=== PATIENT | male | born 1995 | race Caucasian/White ===

== ENCOUNTER 2023-04-14 19:00 | Emergency (ER) | payer MEDICAID, SELFPAY ==
[2023-04-14 19:27] VITALS: BP 138/97; PULSE 74; RESP 16; TEMP 36.6; O2SAT 98; BMI 23.0
--- NOTE | 2023-04-14 19:41 | CRLHL7_ITS ---
For Patients: As a result of the Cures Act, medical imaging exams and procedure reports are released immediately into your electronic medical record. You may view this report before your referring provider. If you have questions, please contact your health care provider. HISTORY: Fall. TECHNIQUE: Three views of the right hand. COMPARISON: No prior. FINDINGS: No acute fracture or dislocation. There may be a remote healed fracture of the proximal shaft of the 5th metacarpal bone as seen on the oblique film. Ulnar minus variance. Alignment otherwise maintained. Vascular calcifications. No radiodense foreign body. Irregularity of the soft tissues of the 4th and 5th fingers likely reflecting soft tissue injury. IMPRESSION: No acute fracture or dislocation. Dictated by Gorge Kumar MD @ 04/14/2023 8:19:26 PM Dictated by: Gorge Kumar MD @ 04/14/2023 20:19:31 (Electronically Signed)
--- NOTE | 2023-04-14 19:41 | CRLHL7_ITS ---
For Patients: As a result of the Cures Act, medical imaging exams and procedure reports are released immediately into your electronic medical record. You may view this report before your referring provider. If you have questions, please contact your health care provider. INDICATION: Fall. Right rib pain. TECHNIQUE: Chest 2 view(s) COMPARISON: Chest radiograph dated 08/28/2020. FINDINGS: Cardiomediastinal silhouette and pulmonary vasculature are normal. No focal consolidation. No pleural effusion, no pneumothorax. Mild multilevel degenerative changes of the visualized spine. Mildly displaced right lateral 6th, 7th, and 8th rib fractures. IMPRESSION: Mildly displaced right lateral 6th, 7th, and 8th rib fractures. Dictated by Anuel Fay MD @ 04/14/2023 8:23:15 PM (Electronically Signed)
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
[2023-04-14] MEDS: OXYCODONE 5 MG TABLET PO (20:37)
[2023-04-14 20:38] VITALS: BP 158/102; PULSE 68; RESP 16; TEMP 36.8; O2SAT 97
[2023-04-14 21:06] VITALS: O2SAT 97
== END 2023-04-14 21:07 | disposition home or self-care (01) ==
PROVIDERS: Emergency Provider Emergency Medicine
DX: S22.41XA Multiple fractures of ribs, right side, initial encounter for closed fracture (principal); V19.9XXA Pedal cyclist (driver) (passenger) injured in unspecified traffic accident, initial encounter; S00.81XA Abrasion of other part of head, initial encounter
CPT/HCPCS: 71046; 73130; 94761; 99284; A9270

== ENCOUNTER 2023-04-18 18:05 | Emergency (ER) | payer MEDICAID, SELFPAY ==
[2023-04-18 18:14] VITALS: BP 220/110; PULSE 83; RESP 20; TEMP 36.7; O2SAT 97; BMI 21.9
[2023-04-18] MEDS: KETOROLAC 30 MG/ML inj IM (18:44)
[2023-04-18] MEDS: ACETAMINOPHEN 500 MG TABLET 1000 MG PO (18:44)
[2023-04-18] MEDS: OXYCODONE 5 MG TABLET 10 MG PO (18:45)
[2023-04-18 18:47] VITALS: BP 176/114
--- NOTE | 2023-04-18 19:01 | ED.GENADULT ---
HPI - General Adult General Chief complaint: Rib Pain Stated complaint: broken ribs Time Seen by Provider: 04/18/23 18:06 Source: patient Mode of arrival: ambulatory Limitations: no limitations History of Present Illness HPI narrative: 28-year-old male with a notable history of diabetes and hypertension presents to the emergency department for right rib pain. He was evaluated in the emergency department 2 days ago, was diagnosed with rib fractures. Appropriate workup performed, notes reviewed. He was instructed on use of [id number] Tylenol, ibuprofen and given a supply of 20 oxycodone. He has an incentive spirometer which he admits that he is not using very often as taking a deep breath worsens his pain. He ran out of oxycodone last night. He is not using ibuprofen at all and he only took 1 Tylenol tablet earlier this morning, over 10 hours ago. He clearly is not using the recommended stepwise pain control that was discussed in his previous visit. He starting to have pain not just in the outer chest wall but also a little deeper in the right far lateral chest. He is not having any fever, there is no hemoptysis. There is no productive sputum. He has not dyspnea on exertion. He had called earlier today requesting a refill of these oxycodone, when he was reminded that this would not be done without a visit, he requested a virtual visit. We let him know that this is not an option for him either. He has not made a follow-up appointment with a primary care provider. He also does not regularly take his antihypertensives. He denies any new trauma or injury. Past medical history notable for diabetes and hypertension. Medications are accurate as listed but he is not regularly using all of these. ROS is notable for the generalized and musculoskeletal symptoms as above. Also notable for the chest and respiratory symptoms no other cardiovascular, skin or other musculoskeletal concerns Related Data Home Medications Medication Instructions Recorded Confirmed insulin aspart U-100 100 unit/mL subcut 04/14/23 (3 mL) subcutaneous pen insulin glargine 100 unit/mL (3 26 - 27 unit subcut DAILY 04/14/23 04/14/23 mL) subcutaneous pen (Lantus Solostar U-100 Insulin) lisinopril 20 mg tablet 20 mg PO DAILY 04/14/23 04/18/23 metoprolol succinate 25 mg 100 mg PO DAILY 04/14/23 04/18/23 tablet,extended release 24 hr Previous Rx's Medication Instructions Recorded albuterol sulfate 90 mcg/actuation 2 puff inhalation 6XD PRN 04/14/23 aerosol inhaler shortness of breath or wheezing #6.7 grams fluticasone 250 mcg-salmeterol 50 1 inh inhalation BID #60 ea 04/14/23 mcg/dose blistr powdr for inhalation (Advair Diskus) Allergies Allergy/AdvReac Type Severity Reaction Status Date / Time bee venom protein (honey bee) Allergy Verified 04/14/23 19:31 shellfish derived Allergy Verified 04/14/23 19:31 Penicillins AdvReac Verified 04/14/23 19:31 [facility] History Hypertension ?I10 - Essential (primary) hypertension (ICD-10) Type 1 diabetes ?E10.9 - Type 1 diabetes mellitus without complications (ICD-10) Social History Smoking Status: Former smoker Do you use any of these nicotine containing products: None How often do you have a drink containing alcohol: 4 or more times a week How many standard drinks containing alcohol do you have on a typical day: 3 or 4 How often do you have six or more drinks on one occasion: Weekly AUDIT-C Alcohol total score: 8 Non-prescribed substance use: denies use Exam Const: Vital Signs, click to edit/add: Vital Signs - 24 hr 04/18/23 18:14 04/18/23 18:47 Temperature 98.1 F Pulse Rate [Pulse Oximeter] 83 Respiratory Rate 20 Blood Pressure [Ri ght Upper Arm] 220/110 H 176/114 H Pulse Oximetry 97 Oxygen Delivery Me thod Room Air Other: Fair insight at best. Does not seem to be enjoying my discussion for stepwise pain control and how it was clearly outlined in his discharge paperwork that he should be using ibuprofen and Tylenol as first-line agents which he is not appropriately doing. HENMT: Common normals: normocephalic and head/scalp atraumatic Head and scalp: normocephalic and atraumatic Mouth: oral and palatal mucosa normal Eye: Common normals: conjunctivae normal General eye: normal appearance of both eyes Conjunctiva: conjunctiva(e) normal Chest: Common normals: inspection of chest normal Resp: Common normals: normal respiratory effort, no retractions and clear to auscultation bilaterally Effort & inspection: able to speak in complete sentences Auscultation: clear to auscultation bilaterally Cardio: Common normals: regular rate, regular rhythm and no murmurs Rate: regular rate Rhythm: regular rhythm Psych: Common normals: thought process normal Appearance: grossly normal Thought process: normal thought process Insight: fair Judgement: fair Skin: Common normals: no rashes or lesions noted General skin exam: no rashes or lesions noted Course Course Hospital Course: Counseled patient on stepwise pain control. No evidence of hypoxia, fever, tachypnea or other complication. Counseled that he will not continue receiving narcotics through the emergency department and that he has been overusing the oxycodone. I do respect that he is in true pain. He is given 1000 mg of Tylenol, 30 mg of IM Toradol and will be given 10 mg of p.o. oxycodone 1 time. He is given a supply of 10 oxycodone tablets from [employer] and instructed to use these at bedtime only. I clearly wrote down appropriate stepwise pain control with Tylenol and ibuprofen, need to use the incentive spirometry. He should make a follow-up appointment with primary care provider to further discuss pain control options but that he will not be given further oxycodone through our emergency department. Alarm symptoms were reviewed with him. Blood pressure did improve somewhat on repeat values. He is not exhibiting neurological changes. Differential diagnosis considered include pneumothorax, pneumonia, repeat rib fractures, shingles, pulmonary contusion. Vital Signs Vital signs: Initial Vital Signs Temperature 98.1 F 04/18/23 18:14 Temperature Source Temporal Artery Scan 04/18/23 18:14 Pulse Rate 83 04/18/23 18:14 Respiratory Rate 20 04/18/23 18:14 Blood Pressure 220/110 H 04/18/23 18:14 Blood Pressure Mean 146 H 04/18/23 18:14 Blood Pressure Position Sitting 04/18/23 18:14 Pulse Oximetry 97 04/18/23 18:14 Oxygen Delivery Method Room Air 04/18/23 18:14 Vital Signs Temperature 98.1 F 04/18/23 18:14 Pulse Rate 83 04/18/23 18:14 Respiratory Rate 20 04/18/23 18:14 Blood Pressure 220/110 H 04/18/23 18:14 Pulse Oximetry 97 04/18/23 18:14 Oxygen Delivery Method Room Air 04/18/23 18:14 Temperature 98.1 F 04/18/23 18:14 Pulse Rate 83 04/18/23 18:14 Respiratory Rate 20 04/18/23 18:14 Blood Pressure 176/114 H 04/18/23 18:47 Pulse Oximetry 97 04/18/23 18:14 Oxygen Delivery Method Room Air 04/18/23 18:14 Discharge Plan Discharge Clinical Impression: Multiple rib fractures Patient Disposition: Home w/ Parent or Adult Instructions: Rib Fracture (ED) Additional Instructions: There are no signs of complications from the rib fractures. You are moving air beautifully with no signs of a collapsed lung, low oxygen saturations or infection. I am not surprised that there is pain deeper in the lungs because any injury enough to fracture your ribs with certainly cause a contusion, a bruise of the lung as well. You are going through the oxycodone too fast. You are not taking appropriate advantage of other means of pain control. It is important that you are using the medications in a stepwise fashion to treat your pain. First, you need to be maxing out on Tylenol. As we discussed, this is not dangerous to your kidneys. You will take 1000 mg 4 times daily, every 6 hours. If this is not adequately taking care of your pain, you will add in Toradol, 1 tablet up to every 8 hours. You will be provided with a prescription for this today. I will also give you a small supply of oxycodone to use at bedtime only. You will not be given additional oxycodone if you come back to the emergency department. Again, it is critically important that you make sure you are using the 1st 2 pain control steps before moving to the 3rd. These medications do wear off and they will need to be re-dosed throughout the day. Rib fractures can be very painful. Thankfully, things should start to improve in about a week. After the Toradol is gone, you may use 600 mg of ibuprofen every 6 hours for pain control. Activity Level: Activity as Tolerated Discharge Diet: Diabetic Prescriptions: No Action lisinopril 20 mg tablet 20 mg PO DAILY Hold Instructions: Doctor's Order metoprolol succinate 25 mg tablet extended release 24 hr 100 mg PO DAILY insulin aspart U-100 100 unit/mL (3 mL) insulin pen subcut insulin glargine [Lantus Solostar U-100 Insulin] 100 unit/mL (3 mL) insulin pen 26 - 27 unit subcut DAILY albuterol sulfate 90 mcg/actuation HFA aerosol inhaler 2 puff inhalation 6XD PRN (Reason: shortness of breath or wheezing) Qty: 6.7 0RF fluticasone propion-salmeterol [Advair Diskus] 250-50 mcg/dose blister with device 1 inh inhalation BID Qty: 60 2RF Follow Up/Referrals: Provider,Not a Local [Primary Care Provider] - Stand Alone Forms: [employer] Info Instructions
[2023-04-18 19:15] VITALS: PULSE 77; O2SAT 95
== END 2023-04-18 19:16 | disposition home or self-care (01) ==
LOC: ED 19:16
PROVIDERS: Emergency Provider Family Medicine
DX: S22.41XG Multiple fractures of ribs, right side, subsequent encounter for fracture with delayed healing (principal); Z76.0 Encounter for issue of repeat prescription
CPT/HCPCS: 96372; 99283; A9270; J1885

== ENCOUNTER 2023-10-26 21:11 | Outpatient (CLI) | payer MEDICAID, SELFPAY ==
--- OUTSIDE RECORDS SUMMARY | 2023-11-03 13:34 | XMS_ITS | Clinical Summary ---
Author Name Unknown [facility] Address [address] [address] Care Team Providers Care Client Care Consultant Name Role Phone Joao Mary PA-C Primary Care Provider [phone] Source Comments You are receiving this document as you are listed as the primary care provider,follow-up provider, or the patient has been referred to you for consultation.This is in compliance with the Medicare and[facility] EHR Incentive Program,which states Providers who transition their patient to another setting of careor provider of care or refers their patient to another provider of care shouldprovide summary care record for each transition of care or referral. [facility] Allergies Active Allergy Reactions Criticality Noted Date Comments Bee Venom Itching Medium 06/23/2013 Copper 11/25/2011 PN: had a copper ear stud that got infected. Possible skin reaction to copper in the metal format. Naltrexone Other, see comments,Anxiety 06/04/2021 Med reaction vs alcohol withdrawal? Med reaction vs alcohol withdrawal? Penicillins Hives 05/25/2012 Seafood Anaphylaxis High 11/03/2020 Coconut shrimp - anaphylaxis Shellfish Allergy Anaphylaxis High 11/03/2020 Coconut shrimp - anaphylaxis Coconut shrimp - anaphylaxis Zinc Rash 05/12/2018 Medications Medication Sig Dispensed Refills Start Date End Date Status Lithonia-3 (AKA FISH OIL) 1000 MG capsule Take by mouth. 0 11/08/2018 Active Vitamin D, Ergocalciferol, 31077 units CAPS Take 1 Capsule (50,000 Units) by mouth. 0 03/12/2010 Active Continuous Blood Gluc Transmit (DEXCOM G6 TRANSMITTER) MISCIndications:U ncontrolled type 1 diabetes mellitus with nephropathy Inject 1 Each subcutaneously [id number]. 1 Each 3 03/18/2020 Active Continuous Blood Gluc General House Worker (DEXCOM G6 UNIVERSAL GRINDER SET UP OPERATOR) DEVIIndications:T ype 1 diabetes mellitus without complication (HRC) Take 1 Each as instructed daily. 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 Use as directed. Pharmacy dispense brand based on insurance. 400 Strip 0 09/05/2021 Active UltiCare Alcohol Swabs 70 % PADS Use before testing blood sugars 200 Each 3 03/09/2022 Active cholecalciferol (VITAMIN D3) 25 MCG (1000 UT) tablet Take 1 Tablet (1,000 Units) by mouth. 0 Active furosemide (LASIX) 20 MG tablet Take 1 Tablet (20 mg) by mouth two times a day. 0 06/14/2022 Active Ketotifen Fumarate (ZADITOR) 0.025 % eye drop solution Place 1 Drop into eye(s). 0 Active Multiple Vitamin (ONE-A-DAY ESSENTIAL) Take 1 Tablet by mouth daily. 0 Active potassium chloride (KLOR-CON M) 20 MEQ ER tablet Take 1 Tablet (20 mEq) by mouth. 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 Replace sensor every 14 days. 6 Each 3 11/18/2022 Active fluticasone-salme terol (ADVAIR) 500-50 MCG/ACT diskus inhalerIndication s:Mild persistent asthma without complication (HRC) Inhale 1 Puff as needed. 1 Each 11 11/26/2022 Active lisinopril (ZESTRIL) 20 MG tabletIndications :Essential hypertension (HRC) Take 1 Tablet (20 mg) by mouth daily. 90 Tablet 3 12/03/2022 Active EPINEPHrine (EPIPEN) 0.3 MG/0.3ML injection INJECT 0.3 MILLILITERS INTRAMUSCULARLY NEEDED FOR ANAPHYLACTIC REACTION. 1 Each 02/23/2023 Active gabapentin (NEURONTIN) 300 MG capsule TAKE 3 CAPSULES BY MOUTH EVERY MORNING AND TAKE 3 CAPSULES BY MOUTH EVERY EVENING. 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 USE 3-4 UNITS PER MEAL. 30 mL 0 08/09/2023 Active LANTUS SOLOSTAR 100 UNIT/ML penIndications:Ty pe 1 diabetes mellitus with diabetic nephropathy (HRC),Diabetic hypoglycemia (HRC) Inject 26-27 Units subcutaneously daily. 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 11/10/2018 ADHD, predominantly inattentive type 12/18/2011 Bipolar II disorder, most recent episode major d epressive 07/28/2011 Alcohol dependence in remission 07/28/2011 Overview: Other and unspecified alcohol dependence, in remission (HRC) Substance dependence, in remission 07/28/2011 Resolved Problems Problem Noted Date Diagnosed Date Resolved Date Bipolar affective disorder 07/08/2011 1 Overview: Other bipolar disorders (HRC) Encounters Date Type Department Care Team Description 09/12/[address] [phone] Joao Mary PA-C Refill (BAQSIMI TWO PACK 3 MG/DOSE nasal powder [Pharmacy Med Name: Baqsimi Two Pack Nasal Powder 3 MG/DOSE]) 09/12/[address] [phone] Joao Mary PA-C Refill (LANTUS SOLOSTAR 100 UNIT/ML pen [Pharmacy Med Name: Lantus SoloStar Subcutaneous Solution Pen-injector 100 UNIT/ML]; GLUCAGON EMERGENCY 1 MG Kit [Pharmacy Med Name: Glucagon Emergency Injection Kit 1 MG]) 08/05/[address] [phone] Joao Mary PA-C Refill (Insulin Aspart FlexPen 100 UNIT/ML SOPN [Pharmacy Med Name: Insulin Aspart FlexPen Subcutaneous Solution Pen-injector 100 UNIT/ML]) from Last 3 Months Immunizations Name Administration Dates Next Due DTaP 01/15/1995, 4,1993,1992,1993 Flu Vac Preserv Free (3+yrs) 07/16/2011, 06/04/2011,06/11/2010,2008,10/17/2008,08/09/2006,07/23/2004 HepB Adult (Engerix-B, 20+ y rs, 3 dose series) 1993,1993,1993 Hib (ActHIB) 07/01/1994, 3,1993,1992 Influenza IIV4 (Quadrivalent ) 0.5mL (18019) 07/21/2020 Influenza, Unspecified Formulation 07/16,06/04/2011,06/11/2010,2008,10/17/2008,08/09/2006,07/23/2004 MMR 08/09/2001,07/01/1994 Moderna Monovalent 12+ 02/19/2021 OPV, Trivalent (Orimune or tOPV) 998,07/01/1994,1993,1992 Rabies 12/07/2017, 8,11/26/2017,2017 Rabies IG 11/23/2017 TDAP (ADACEL) 05/26/2005 Tdap 11/23/2017 Family History Medical History Relation Name Comments Alcohol Abuse Father Foster Bipolar Disorder Mother Carine Diabetes, Type II Maternal Grandfather Parkinsons Maternal Grandfather Rheumatologic Disease Maternal Grandfather ADHD Sister 1 Ambriel ADHD Sister 2 Brylea Relation Name Status Comments Father Foster Alive Mother Carine Alive Maternal Grandfather Sister 1 Ambriel Alive Sister 2 Gin Alive Social History Tobacco Use Types Packs/Day Years Used Date Smoking Tobacco: Former Cigarettes Q uit: 07/04/2021 Smokeless Tobacco: Never Tobacco Cessation:Counseling Given: Not Answered Comments:1 Cigarette per day Alcohol Use Standard Drinks/Week Comments Yes 0 (1 standard drink = 0.6 oz pur e alcohol) 2-3 beers each day PHQ-2 Answer Date Recorded PHQ-2 Score 5 11/18/2022 Sex and Gender Information Value Date Recorded Sex Assigned at Not on file Gender Identity Not on file Sexual Orientation Not on file Last Filed Vital Signs Vital Sign Reading Time Taken Comments Blood Pressure 179/113 11/18/2022 3:24 PM IT SUPPORT ENGINEER Pulse 77 11/18/2022 3:24 PM IT SUPPORT ENGINEER Temperature 37.1 ??C (98.7 ??F) 08/15/2020 1:58 PM CS T Respiratory Rate 14 11/18/2022 3:07 PM IT SUPPORT ENGINEER Oxygen Saturation 100% 08/15/2020 1:58 PM IT SUPPORT ENGINEER Inhaled Oxygen Concentration - - Weight 71.4 kg (157 lb 4.8 oz) 11/18/2022 3:07 P M IT SUPPORT ENGINEER Height 172.7 cm (5' 8) 11/18/2022 3:07 PM IT SUPPORT ENGINEER Body Mass Index 23.92 11/18/2022 3:07 PM IT SUPPORT ENGINEER Plan of Treatment Upcoming Encounters Date Type Department Care Team Description 11/08/2023 3:00 PM IT SUPPORT ENGINEER Telemedicine [place] [address] [facility] [address] [place] [address] Joao Mary, MARTIN [address] [place] [address] Health Maintenance Due Date Last Done Comments Diabetes: Eye Exam 1993 MTM Targeted 1993 Asthma ACT 1997 Pneumococcal (1 - PCV) 1999 COVID-19 Vaccine ( season) 2023 02/19/2021 Influenza (#1) 2023 07/21/2020, 07/04, 07/16/2011, Additional history exists Diabetes: Creatinine 11/18/2023 11/18/2022, 08/15/2020, 06/22/2019, Additional history exists Diabetes: Foot Exam 11/18/2023 11/18/2022 Diabetes: Urine Microalbumin 11/18/2023 11/18/2022, 09/09/2018, 08/06/2017, Additional history exists Diabetes: HGBA1C 01/25/2024 10/26/2023, , 06/23/2021, Additional history exists Adult Preventive Visit 11/18/2024 11/18/2022 Diabetes: Lipid Panel 11/18/2027 11/18/2022 , 09/09/2018, 08/06/2017, Additional history exists DTaP/Tdap/Td (7 - Tdap) 11/23/2027 11/23/19, 05/26/2005, 01/15/1995, Additional history exists Zoster/Shingles (1 of 2) 2043 HepB Completed 1993, 0704/1993, 1993 Hib Completed 07/01/1994, 0 04/1993, 1993, Additional history exists IPV (Polio) Completed 01/15/1998, 06/05, 1993, Additional history exists HIV Screening (Preventive Services) Completed 11/18/2022 Hep C Screening (Preventive Services) Completed 11/18/2022 HPV Vaccine Aged Out No longer eligi ble based on patient's age to complete this topic HepA Aged Out No longer eligi ble based on patient's age to complete this topic MCV4 Aged Out No longer eligi ble based on patient's age to complete this topic Care Teams Client Care Consultant Relationship Specialty Start Date End Date Joao Mary PA-C [address] [place] [address] PCP - General Physician Civil Structural Designer 05/29/23
--- OUTSIDE RECORDS SUMMARY | 2023-11-03 13:34 | XMS_ITS | Encounter Summary ---
Author Name Unknown Organization [facility] Address [address] [address] Care Team Providers Care Printing Grey Cloth Tender Name Role Phone Joao Mckeon PA-C Primary Care Provider [phone] Reason for Visit * Reason Comments Refill BAQSIMI TWO PACK 3 M G/DOSE nasal powder [Pharmacy Med Name: Baqsimi Two Pack Nasal Powder 3 MG/DOSE] Encounter Details Date Type Department Care Team Description 08/02/2023 Refill [place] [address] Family [facility] [id number] [place] [phone] Joao Mckeon PA-C [address] [place] [address] Refill (BAQSIMI TWO PACK 3 MG/DOSE nasal powder [Pharmacy Med Name: Baqsimi Two Pack Nasal Powder 3 MG/DOSE]) Social History Tobacco Use Types Packs/Day Years Used Date Smoking Tobacco: Former Cigarettes Q uit: 07/04/2021 Smokeless Tobacco: Never Comments:1 Cigarette per day Alcohol Use Standard Drinks/Week Comments Yes 0 (1 standard drink = 0.6 oz pur e alcohol) 2-3 beers each day PHQ-2 Answer Date Recorded PHQ-2 Score 5 11/18/2022 Sex and Gender Information Value Date Recorded Sex Assigned at Not on file Gender Identity Not on file Sexual Orientation Not on file documented as of this encounter Nursing Notes * Interface, Out [employer] Prov Query - 08/02/2023 4:31 PM CDT BAQSIMI TWO PACK 3 MG/DOSE nasal powder [Pharmacy Med Name: Baqsimi Two Pack Nasal Powder 3 MG/DOSE] Medication started: 11/14/2020 Last ordered by JOAO MCKEON: 05/30/2023 (64 days ago) QTY: 1, Refills: 0, Sig: place 1 dose (3 mg) into one nostril as needed for hypoglycemia. may repeat in 15 minutes prn. do not open tube until ready to use. (changed) -> Unable to determine if sig has changed, review required. -> Medication cannot be delegated. Last qualifying visit: 11/18/2022 (with JOAO MCKEON) Next scheduled visit: None [employer] Embedded Refills, Reference: [id number], 08/02/2023 4:31:51 PM CDT, Pool: NORBERTO REFILL ([id number]) documented in this encounter Plan of Treatment Upcoming Encounters Date Type Department Care Team Description 11/08/2023 3:[address] [facility] Telemedicine [place] [address] [facility] [address] [place] [address] Joao Mckeon, MARTIN [address] [place] [address] documented as of this encounter Visit Diagnoses Not on filedocumented in this encounter Care Teams Printing Grey Cloth Tender Relationship Specialty Start Date End Date Joao Mckeon PA-C [address] [place] [address] PCP - General Physician Spool Salvager 05/29/23 documented as of this encounter
--- OUTSIDE RECORDS SUMMARY | 2023-11-03 13:34 | XMS_ITS | Encounter Summary ---
Author Name Unknown Organization [facility] Address [address], [place] [address] Care Team Providers Care Pipe Buffer Name Role Phone Joao Mary PA-C Primary Care Provider [phone] Reason for Visit * Reason Comments Refill Insulin Aspart FlexP en 100 UNIT/ML SOPN [Pharmacy Med Name: Insulin Aspart FlexPen Subcutaneous Solution Pen-injector 100 UNIT/ML] Encounter Details Date Type Department Care Team Description 08/05/2023 Refill [place] [address] Family Medicine [id number] [place] [phone] Joao Mary PA-C [address] [place] [address] Refill (Insulin Aspart FlexPen 100 UNIT/ML SOPN [Pharmacy Med Name: Insulin Aspart FlexPen Subcutaneous Solution Pen-injector 100 UNIT/ML]) Social History Tobacco Use Types Packs/Day Years [...] as of this encounter Nursing Notes * Ziggy Elizabeth Pearce - 08/09/2023 1:33 PM CST Medication Refill - Due for Visit Medication still pending for clinician review, patient is due to be seen in the next 30 days. Called patient, was: unable to reach patient. 2nd call attempted. Unsuccessful in reaching patient. Frontline Action: Route to clinician identified in nursing documentation below. Clinician Action: Unsuccessful in reaching patient to schedule, requests refill. Please determine whether refill is appropriate. Recommend using ???Refuse All?? quick action to address request. LATION HELPER * Mary Cardoso - 08/09/2023 10:26 AM CST Medication Refill - Due for Visit Medication still pending, patient is due to be seen in the next 30 days. Called patient, was: unable to reach patient. 1st call attempted. Unable to LVM Scheduling Action: Patient needs to schedule an appointment in the next 30 days. If able to schedule, please document date of appointment and route to clinician/pool identified in nursing documentation below. LATION HELPER * Marissa Paige RN - 08/09/2023 5:27 AM CST Further Assistance Needed on Refill from Keeler Polygraph Operator Patient is due for Qualifying Visit and lab(s). Medication is still pending. Patient is due for an Office/Video Visit in the next 30 days. Call Patient and document using .ROLA. After attempting to schedule patient: Please route to: Joao Mary PA-C Requested Prescriptions Pending Prescriptions Disp Refills Insulin Aspart FlexPen 100 UNIT/ML SOPN [Pharmacy Med Name: Insulin Aspart FlexPen Subcutaneous Solution Pen-injector 100 UNIT/ML] 30 mL 0 Sig: INJECT 12 UNITS SUBCUTANEOUS DAILY. USE 3-4 UNITS PER MEAL. LATION HELPER * Interface, Out [employer] Prov Query - 08/05/2023 5:57 PM CDT Insulin Aspart FlexPen 100 UNIT/ML SOPN [Pharmacy Med Name: Insulin Aspart FlexPen Subcutaneous Solution Pen-injector 100 UNIT/ML] Medication started: 08/06/2017 Last ordered by JOAO MARY: 01/23/2023 (194 days ago) QTY: 30, Refills: 0, Sig: inject 12 units subcutaneous daily. use 3-4 units per meal. (changed but equivalent) -> HBA1C is abnormal (11.2 % is greater than 7.9 %) -> Refill x 6 months (until due for an office visit and HBA1C check) -> Calculate the quantity and number of refills manually. Last qualifying visit: 11/18/2022 (with JOAO MARY) Next scheduled visit: None HBA1C: 11.2 % on 11/18/2022 [employer] Embedded Refills, Reference: [id number], 08/05/2023 5:57:17 PM CDT, Pool: NORBERTO REFILL ([id number]) LATION HELPER * Interface, Out [email or web address] Prov Query - 08/05/2023 5:57 PM CDT The following lab order(s) may be associated with the Result Note below: HGB A1C Notes recorded by Joao Mary on 11/26/2022 at 12:54 PM INSULATION HELPER Please let Giana know I refilled his Lantus insulin and his Lisinopril, Metoprolol and Celina inhaler. He had left prior to finishing his visit with him and I would like to have him schedule a follow-up so we can go through his labs, recheck his blood pressure and make sure we get him on the medication regimen he should be on LATION HELPER documented in this encounter Plan of Treatment Upcoming Encounters Date Type Department Care Team Description 11/08/2023 3:00 PM INSULATION HELPER Telemedicine [place] [address] [facility] Medicine [address] [place] [phone] Joao Mary PA-C [address] [place] [address] documented as of this encounter Visit Diagnoses Not on filedocumented in this encounter Care Teams Pipe Buffer Relationship Specialty Start Date End Date Joao Mary PA-C [address] [place] [address] PCP - General Physician Brim Greaser Operator 05/29/23 documented as of this encounter
--- OUTSIDE RECORDS SUMMARY | 2023-11-03 13:34 | XMS_ITS | Encounter Summary ---
Author Name Unknown Organization [facility] Address [address], [place] [address] Care Team Providers Care Assistant Import Manager Name Role Phone Joao Mckeon PA-C Primary Care Provider [phone] Reason for Visit * Reason Comments Refill BAQSIMI TWO PACK 3 M G/DOSE nasal powder [Pharmacy Med Name: Baqsimi Two Pack Nasal Powder 3 MG/DOSE] Encounter Details Date Type Department Care Team Description 09/12/2023 Refill [place] [address] Family Medicine [id number] [place] [phone] Joao Mckeon PA-C [address] [place] [address] Refill (BAQSIMI TWO PACK 3 MG/DOSE nasal [...] this encounter Nursing Notes * Interface, Out [employer] Prov Query - 09/12/2023 4:45 PM CST BAQSIMI TWO PACK 3 MG/DOSE nasal powder [Pharmacy Med Name: Baqsimi Two Pack Nasal Powder 3 MG/DOSE] Medication started: 11/14/2020 Last ordered by JOAO MCKEON: 08/02/2023 (41 days ago) QTY: 1, Refills: 0, Sig: place 1 dose into one nostril as needed for hypoglycemia. may repeat in 15 minutes as needed. do not open tube untilready to use (unchanged) -> Medication cannot be delegated. Last qualifying visit: 11/18/2022 (with JOAO MCKEON) Next scheduled visit: None [facility] Embedded Refills, Reference: [id number], 09/12/2023 4:45:45 PM Fco ADAN: BHASKAR Refill Centralized Services - Primary Care [[id number]] ([id number]) ALCOHOLIZER documented in this encounter Plan of Treatment Upcoming Encounters Date Type Department Care Team Description 11/08/2023 3:00 PM DE ALCOHOLIZER Telemedicine [place] [address] [phone] Joao Mckeon PA-C [address] [place], [place] [phone] documented as of this encounter Visit Diagnoses Not on filedocumented in this encounter Care Teams Assistant Import Manager Relationship Specialty Start Date End Date Joao Mckeon PA-C [address] [place], [place] [phone] PCP - General Physician Physician Support Coordinator 05/29/23 documented as of this encounter
--- OUTSIDE RECORDS SUMMARY | 2023-11-03 13:34 | XMS_ITS | Continuity of Care Document ---
Author Name Unknown Organization [facility] Address [address] [place] [phone] Phone Care Team Providers Care Used Car Lot Attendant Name Role Phone Will MD COBIAN, Carloz Unavailable Unavailabl e Advance Directives Directive Yes / No Effective Date File Name No Information Encounters Encounter Description Practice Location Reason(s) For Visit Diagnoses Date Provider Providers Copied on Encounter [facility], [address] [place] [address], [id number], [place] tel:[phone] [facility] No Information Will Carloz. [address] [facility] [place], [id number], [place]. tel:[phone] Family History Family Member Type Diagnosis Age At Onset No Information Payers Payer name Insurance type Covered constitution party ID Authoriza tion(s) No Information Social History Type Description Quantity Date Captured Comments Sex Male Smoking Status No Information Chief Complaint And Reason For Visit No Information Reason For Referral Reason For Referral No Information History Of Present Illness Encounter Date Complaint History Of Prese nt Illness No Information Functional Status Date Functional Assessmen t No Information Instructions Date Instruction Additional Infor mation No Information Assessments Type Assessment Date No Information Patient Care Teams Name Effective Dates (start - stop) Status Members No Information
--- OUTSIDE RECORDS SUMMARY | 2023-11-03 13:34 | XMS_ITS | Encounter Summary ---
Author Name Unknown Organization [facility] Address [address], [place] [address] Care Team Providers Care Pigment And Lacquer Mixer Name Role Phone Joao Mary PA-C Primary Care Provider [phone] Reason for Visit * Reason Comments Refill LANTUS SOLOSTAR 100 UNIT/ML pen [Pharmacy Med Name: Lantus SoloStar Subcutaneous Solution Pen-injector 100 UNIT/ML]; metoprolol succinate (TOPROL XL) 25 MG 24 hour release tablet [Pharmacy Med Name: Metoprolol Succinate ER Oral Tablet Extended Release 24 Hour 25 MG] Encounter Details Date Type Department Care Team Description 08/02/2023 Refill [place] [address] Family Medicine [address] [place] [address] Joao Mary PA-C [address] [place] [address] Refill (LANTUS SOLOSTAR 100 UNIT/ML pen [Pharmacy Med Name: Lantus SoloStar Subcutaneous Solution Pen-injector 100 UNIT/ML]; metoprolol succinate (TOPROL XL) 25 MG 24 hour release tablet [Pharmacy Med Name: Metoprolol Succinate ER Oral Tablet Extended Release 24 Hour 25 MG]) Social History Tobacco Use Types Packs/Day Years [...] as of this encounter Nursing Notes * Elizabeth Trinh - 08/09/2023 1:31 PM CST Medication Refill - Due for [...] ???Refuse All?? quick action to address request. BUILDER SUPERVISOR * Elizabeth Trinh - 08/06/2023 7:27 PM CDT Medication Refill - Due for Visit Medication still pending, patient is due to be seen in the next 30 days. Called patient, was: unable to reach patient. 1st call attempted. Left message to call back. Scheduling Action: Patient needs to schedule an appointment in the next 30 days. If able to schedule, please document date of appointment and route to clinician/pool identified in nursing documentation below. * Elizabeth Trinh - 08/06/2023 12:25 PM CDT Medication Refill - Due for Visit Medication still pending, patient is due to be seen in the next 30 days. Called patient, was: unable to reach patient. 1st call attempted. Unable to leave a message. Will try second call later. Scheduling Action: Patient needs to schedule an appointment in the next 30 days. If able to schedule, please document date of appointment and route to clinician/pool identified in nursing documentation below. * Zelda Ortega RN - 08/06/2023 11:07 AM CDT Further Assistance Needed on Refill from Advertising Account Manager Patient is due for Qualifying Visit Medication is still pending. Patient is due for an Office/Video Visit in the next 30 days.. Call Patient and document using .ROLA. After attempting to schedule patient: Please route to: MARTIN Will, ROCK DRILL OPERATOR, COMPRESSOR STATION CHIEF ENGINEER Requested Prescriptions Pending Prescriptions Disp Refills LANTUS SOLOSTAR 100 UNIT/ML pen [Pharmacy Med Name: Lantus SoloStar Subcutaneous Solution Pen-injector 100 UNIT/ML] 30 mL Sig: Inject 26-27 Units subcutaneously daily. metoprolol succinate (TOPROL XL) 25 MG 24 hour release tablet [Pharmacy Med Name: Metoprolol Succinate ER Oral Tablet Extended Release 24 Hour 25 MG] 90 Tablet 1 Sig: take 1 capsule by mouth daily * Interface, Out Surescripts Prov Query - 08/02/2023 4:31 PM CDT LANTUS SOLOSTAR 100 UNIT/ML pen [Pharmacy Med Name: Lantus SoloStar Subcutaneous Solution Pen-injector 100 UNIT/ML] Medication started: 08/06/2017 Last ordered by JOAO MARY: 05/30/2023 (64 days ago) QTY: 30, Refills: 0, Sig: inject 26-27 units subcutaneously daily. (unchanged) -> HBA1C is abnormal (11.2 % is greater than 7.9 %) -> Refill x 6 months (until due for an office visit and HBA1C check) -> Calculate the quantity and number of refills manually. Last qualifying visit: 11/18/2022 (with JOAO MARY) Next scheduled visit: None HBA1C: 11.2 % on 11/18/2022 [facility] Embedded Refills, Reference: [id number], 08/02/2023 4:31:51 PM CDT, Fco: NORBERTO REFILL ([id number]) metoprolol succinate (TOPROL XL) 25 MG 24 hour release tablet [Pharmacy Med Name: Metoprolol Succinate ER Oral Tablet Extended Release 24 Hour 25 MG] Medication started: 06/21/2020 Last ordered by JOAO MARY: 11/26/2022 (249 days ago) QTY: 90, Refills: 2, Sig: take 1 tablet (25 mg) by mouth daily. (changed) -> Unable to determine if sig has changed, review required. -> Refill x 6 months, qty: 90, refills: 1 (until due for an office visit) Last qualifying visit: 11/18/2022 (with JOAO MARY) Next scheduled visit: None [facility] Embedded Refills, Reference: [id number], 08/02/2023 4:31:51 PM CDT, Pool: GEOVANNYLORENE REFILL ([id number]) BUILDER SUPERVISOR * Interface, Out [employer] Query - 08/02/2023 4:31 PM CDT The following lab order(s) may be associated with the Result Note below: HGB A1C Notes recorded by Joao Mary on 11/26/2022 at 12:54 PM SIGN BUILDER SUPERVISOR Please let Giana know I refilled his Lantus insulin and his Lisinopril, Metoprolol and Nathan inhaler. 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
--- OUTSIDE RECORDS SUMMARY | 2023-11-03 13:34 | XMS_ITS | Encounter Summary ---
Author Name Unknown Organization [facility] Address [address] [place] [address] Care Team Providers Care Psychology Physician Name Role Phone Joao Mary PA-C Primary Care Provider [phone] Reason for Visit * Reason Comments Refill LANTUS SOLOSTAR 100 UNIT/ML pen [Pharmacy Med Name: Lantus SoloStar Subcutaneous Solution Pen-injector 100 UNIT/ML]; GLUCAGON EMERGENCY 1 MG Kit [Pharmacy Med Name: Glucagon Emergency Injection Kit 1 MG] Encounter Details Date Type Department Care Team Description 09/12/2023 Refill [place] [address] Family Medicine [id number] [place] [phone] Joao Mary PA-C [address] [place] [address] Refill (LANTUS SOLOSTAR 100 UNIT/ML pen [Pharmacy Med Name: Lantus SoloStar Subcutaneous Solution Pen-injector 100 UNIT/ML]; GLUCAGON EMERGENCY 1 MG Kit [Pharmacy Med Name: Glucagon Emergency Injection Kit 1 MG]) Social History Tobacco Use Types Packs/Day [...] as of this encounter Nursing Notes * Argenis Bass - 09/14/2023 4:58 PM CST Medication Refill - Due for Visit Medication still pending for clinician review, patient is due to be seen in the next 30 days. Called patient, was: Successful in reaching patient: We recently received a refill request for one of your medications. To continue managing your medication refills, your clinician would like to see you for a(n): Patient is due for: Video/Office Visit Patient scheduled appointment on: 09/29/23 patient is also requesting refill of BAQSIMI which he prefers over the needles Do you have enough medication to last until you appointment? No I will send a request to see if a temporary refill can be provided until your next appointment. Please check with your pharmacy on the status of your refill. We will notify you if it has not been approved. Frontline Action: Route to clinician identified in nursing documentation below. Clinician Action: Patient scheduled, requests refill. Recommend using ???Rx Final??? quick action to address request. NICAL PUBLICATIONS MANAGER * Mary Cardoso - 09/14/2023 3:25 PM CST Medication Refill - Due for Visit Medication still pending, patient is due to be seen in the next 30 days. Called patient, was: unable to reach patient. No voice message set up at this time 09/14 Scheduling Action: Patient needs to schedule an appointment in the next 30 days. If able to schedule, please document date of appointment and route to clinician/pool identified in nursing documentation below. NICAL PUBLICATIONS MANAGER * Charbel Burton RN - 09/14/2023 2:30 PM CST Further Assistance Needed on Refill from Rug Cleaning Supervisor Patient is due for Qualifying Visit and lab(s). Medication is still pending. Patient is due for an Office/Video Visit in the next 30 days. Call Patient and document using .ROLA. After attempting to schedule patient: Please route to: Joao Mary PA-C or covering provider Requested Prescriptions Pending Prescriptions Disp Refills insulin glargine (LANTUS SOLOSTAR) 100 UNIT/ML pen [Pharmacy Med Name: Lantus SoloStar SubcutaneousSolution Pen-injector 100 UNIT/ML] 30 mL 0 Sig: Inject 26-27 Units subcutaneously daily. glucagon rDNA, diagnostic, (GLUCAGON EMERGENCY) 1 MG injection [Pharmacy Med Name: Glucagon Emergency Injection Kit 1 MG] 2 Each 0 Sig: Inject 1 mg as needed for hypoglycemia NICAL PUBLICATIONS MANAGER * Interface, Out Surescripts Prov Query - 09/12/2023 4:45 PM CST GLUCAGON EMERGENCY 1 MG Kit [Pharmacy Med Name: Glucagon Emergency Injection Kit 1 MG] Medication started: 03/16/2018 Last ordered by JOAO MARY: 06/08/2023 (96 days ago) QTY: 2, Refills: 1, Sig: inject 1 mg as needed for hypoglycemia (unchanged) -> HBA1C is abnormal (11.2 % is greater than 7.9 %) -> Refill x 3 months (until due for an office visit and HBA1C check) -> Calculate the quantity and number of refills manually. Last qualifying visit: 11/18/2022 (with JOAO MARY) Next scheduled visit: None HBA1C: 11.2 % on 11/18/2022 [facility] Embedded Refills, Reference: [id number], 09/12/2023 4:45:45 PM TECHNICAL PUBLICATIONS MANAGER, Pool: PN Refill [facility] - [facility] Care [[id number]] ([id number]) LANTUS SOLOSTAR 100 UNIT/ML pen [Pharmacy Med Name: Lantus SoloStar Subcutaneous Solution Pen-injector 100 UNIT/ML] Medication started: 10/11/2017 Last ordered by JOAO MARY: 08/09/2023 (34 days ago) QTY: 30, Refills: 0, Sig: inject 26-27 units subcutaneously daily. (unchanged) -> HBA1C is abnormal (11.2 % is greater than 7.9 %) -> Refill x 3 months (until due for an office visit and HBA1C check) -> Calculate the quantity and number of refills manually. Last qualifying visit: 11/18/2022 (with JOAO MARY) Next scheduled visit: None HBA1C: 11.2 % on 11/18/2022 [facility] Embedded Refills, Reference: [id number], 09/12/2023 4:45:45 PM Fco ADAN: BHASKAR Refill [facility] - Primary Care [[id number]] ([id number]) NICAL PUBLICATIONS MANAGER * Interface, Out [employer] Query - 09/12/2023 4:45 PM CST The following lab order(s) may be associated with the Result Note below: HGB A1C Notes recorded by Joao Mary on 11/26/2022 at 12:54 PM TECHNICAL PUBLICATIONS MANAGER Please let Giana know I refilled his Lantus insulin and his Lisinopril, Metoprolol and [place] inhaler. He had left prior to finishing his visit with him and I would like to have him schedule a follow-up so we can go through his labs, recheck his blood pressure and make sure we get him on the medication regimen he should be on NICAL PUBLICATIONS MANAGER documented in this encounter Plan of Treatment Upcoming Encounters Date Type Department Care Team Description 11/08/2023 3:00 PM TECHNICAL PUBLICATIONS MANAGER Telemedicine [place] [id number] [place] [address] [place] [address] Joao Mary PA-C [address] [place] [address] documented as of this encounter Visit Diagnoses Diagnosis 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
--- OUTSIDE RECORDS SUMMARY | 2023-11-03 13:34 | XMS_ITS | Encounter Summary ---
Author Name Unknown Organization [facility] Address [address], [place] [address] Care Team Providers Care Technical Account Executive Name Role Phone Joao Mary PA-C Primary Care Provider [phone] Reason for Visit * Reason Comments Refill UltiCare Alcohol Swa bs 70 % PADS [Pharmacy Med Name: UltiCare Alcohol Swabs Pad 70 %] Encounter Details Date Type Department Care Team Description 07/02/2023 Refill [facility] [address] Endocrinology [address] [facility] [place], [place] [id number] Iva Ham, COMMUNITY SERVICE TECHNICIAN, CONTROL CENTER OPERATOR [address] [place], [place] [id number] Refill (UltiCare Alcohol Swabs 70 % PADS [Pharmacy Med Name: UltiCare Alcohol Swabs Pad 70 %]) Social History Tobacco Use Types Packs/Day Years [...] as of this encounter Nursing Notes * Vanessa Patel, RN - 07/02/2023 2:38 PM CDT Renewed medication per medication refill standing order. Requested Prescriptions Refused Prescriptions Disp Refills UltiCare Alcohol Swabs 70 % PADS [Pharmacy Med Name: UltiCare Alcohol Swabs Pad 70 %] Sig: Use before testing blood sugars Refused By: VANSESA PATEL Reason for Refusal: Patient Needs An Appointment * Interface, Out [employer] Query - 07/02/2023 2:17 PM CDT UltiCare Alcohol Swabs 70 % PADS [Pharmacy Med Name: UltiCare Alcohol Swabs Pad 70 %] Miscellaneous - 12 Month Visit 1 -> An office visit is overdue (performed 20 months ago, required every 12 months). Last qualifying visit: 11/14/2021 (in [facility]3800 ENDOCRINOLOGY) Next scheduled visit: None Last ordered by IVA HAM J: 03/09/2022 (480 days ago) QTY: 200, Refills: 3, Sig: use before testing blood sugars (unchanged) [facility] Embedded Refills, Reference: [id number], 07/02/2023 2:17:04 PM CDT, Pool: LELAND PNREFILL ([id number]) documented in this encounter Plan of Treatment Upcoming Encounters Date Type Department Care Team Description 11/08/2023 3:00 PM FURNACE UNLOADER Telemedicine [place] [address] Family Medicine [address] [place] [address] Joao Mary PA-C [address] [place] [address] documented as of this encounter Visit Diagnoses Not on filedocumented in this encounter Care Teams Technical Account Executive Relationship Specialty Start Date End Date Joao Mary PA-C [address] [place] [address] PCP - General Physician Retail Property Manager 05/29/23 documented as of this encounter
--- OUTSIDE RECORDS SUMMARY | 2023-11-03 13:35 | XMS_ITS | Encounter Summary ---
Author Name Unknown Organization [facility] Address [address] [address] Care Team Providers Care Powder Operator Name Role Phone Haley Duff PA-C Primary Care Provide r Reason for Visit * Reason Comments Refill LANTUS SOLOSTAR 100 UNIT/ML pen [Pharmacy Med Name: Lantus SoloStar Subcutaneous Solution Pen-injector 100 UNIT/ML] Encounter Details Date Type Department Care Team Description 02/12/2023 Refill [place] [address] Family Medicine [address] [place] [phone] Joao Mary PA-C [address] [place] [address] Refill (LANTUS SOLOSTAR 100 UNIT/ML pen [Pharmacy Med Name: Lantus SoloStar Subcutaneous Solution Pen-injector 100 UNIT/ML]) Social History [...] as of this encounter Nursing Notes * Mari Dempsey - 02/16/2023 9:11 AM CDT Medication Refill - Due for Visit Medication still pending, patient is due to be seen in the next 30 days. Called patient, was: unable to reach patient. Patient does not have a mailbox set up. 2nd call attempted. Unsuccessful in reaching patient. Frontline Action: Route to clinician identified in nursing documentation below. Clinician Action: Unsuccessful in reaching patient to schedule, requests refill. Please determine whether refill is appropriate. Recommend using ???Refuse All?? quick action to address request. * Mari Dempsey - 02/15/2023 9:50 AM CDT Medication Refill - Due for Visit Medication still pending, patient is due to be seen in the next 30 days. Called patient, was: unable to reach patient. 1st call attempted. Left message to call back. Mailbox is not set up to leave messages. Scheduling Action: Patient needs to schedule an appointment in the next 30 days. If able to schedule, please document date of appointment and route to clinician/pool identified in nursing documentation below. * Marissa Paige RN - 02/15/2023 8:55 AM CDT Further Assistance Needed on Refill from Glass Deposition Tender Patient is due for Qualifying Visit and lab(s). On 11/26/22: He had left prior to finishing his visit with him and I would like to have him schedulea follow-up so we can go through his labs, recheck his blood pressure and make sure we get him on the medication regimen he should be on Medication is still pending. Patient is due for an Office/Video Visit in the next 30 days. Call Patient and document using .RUDDYDUE. After attempting to schedule patient: Please route to: JOAO MARY PA-C Requested Prescriptions Pending Prescriptions Disp Refills insulin glargine (LANTUS SOLOSTAR) 100 UNIT/ML pen [Pharmacy Med Name: Lantus SoloStar SubcutaneousSolution Pen-injector 100 UNIT/ML] 30 mL 0 Sig: Inject 26-27 Units subcutaneously daily. * Interface, Out Surescripts Prov Query - 02/12/2023 7:52 PM CDT LANTUS SOLOSTAR 100 UNIT/ML pen [Pharmacy Med Name: Lantus SoloStar Subcutaneous Solution Pen-injector 100 UNIT/ML] Medication started: 02/19/2017 Last ordered by JOAO MARY: 11/26/2022 (78 days ago) QTY: 15, Refills: 0, Sig: inject 26-27 units subcutaneously daily. (unchanged) -> HBA1C is abnormal (11.2 % is greater than 7.9 %) -> Refill x 12 months (until due for an office visit and HBA1C check) -> Calculate the quantity and number of refills manually. Last qualifying visit: 11/18/2022 (with JOAO MARY) Next scheduled visit: None HBA1C: 11.2 % on 11/18/2022 [facility] Embedded Refills, Reference: [id number], 02/12/2023 7:52:52 PM CDT, Pool: NORBERTO REFILL ([id number]) * Interface, Out [employer] Prov Query - 02/12/2023 7:52 PM CDT The following lab order(s) may be associated with the Result Note below: HGB A1C Notes recorded by Joao Mary on 11/26/2022 at 12:54 PM NUCLEAR PLANT EQUIPMENT OPERATOR Please let Giana know I refilled his Lantus insulin and his Lisinopril, Metoprolol and [place] inhaler. 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
--- OUTSIDE RECORDS SUMMARY | 2023-11-03 13:35 | XMS_ITS | Encounter Summary ---
Author Name Unknown Organization [facility] Address [address] [address] Care Team Providers Care Career Development Facilitator Name Role Phone Haley Duff PA-C Primary Care Provide r Reason for Visit * Reason Comments Refill Insulin Aspart FlexP en 100 UNIT/ML SOPN [Pharmacy Med Name: Insulin Aspart FlexPen Subcutaneous Solution Pen-injector 100 UNIT/ML] Encounter Details Date Type Department Care Team Description 01/19/2023 Refill [place] [address] Family Medicine [address] [place] [phone] Joao Mary PA-C [address] [place], [place] [phone] Refill (Insulin Aspart FlexPen 100 UNIT/ML SOPN [...] as of this encounter Nursing Notes * Hector Paige, RN - 01/23/2023 5:59 AM CDT Renewed medication per medication refill standing order. Requested Prescriptions Signed Prescriptions Disp Refills Insulin Aspart FlexPen 100 UNIT/ML SOPN 30 mL 0 Sig: INJECT 12 UNITS SUBCUTANEOUS DAILY. USE 3-4 UNITS PER MEAL. Authorizing Provider: JOAO MARY Ordering User: HECTOR PAIGE * Interface, Out Surescripts Prov Query - 01/19/2023 1:34 PM CDT Insulin Aspart FlexPen 100 UNIT/ML SOPN [Pharmacy Med Name: Insulin Aspart FlexPen Subcutaneous Solution Pen-injector 100 UNIT/ML] Medication started: 08/06/2017 Last ordered by JOAO MARY: 01/18/2023 (1 days ago) QTY: 15, Refills: 0, Sig: inject 12 units subcutaneous daily. use 3-4 units per meal. (changed but equivalent) -> The request contains a note from the pharmacy. -> HBA1C is abnormal (11.2 % is greater than 7.9 %) -> Refill x 12 months (until due for an office visit and HBA1C check) -> Calculate the quantity and number of refills manually. Last qualifying visit: 11/18/2022 (with JOAO MARY) Next scheduled visit: None HBA1C: 11.2 % on 11/18/2022 [email or web address] Embedded Refills, Reference: [id number], 01/19/2023 1:34:41 PM CDT, Pool: NORBERTO REFILL ([id number]) * Interface, Out [employer] Query - 01/19/2023 1:34 PM CDT The following lab order(s) may be associated with the Result Note below: HGB A1C Notes recorded by Joao Mary on 11/26/2022 at 12:54 PM CARAMEL CANDY MAKER Please let Giana know I refilled his Lantus insulin and his Lisinopril, Metoprolol and [place] inhaler. He had left prior to finishing [...] Department Care Team Description 11/08/2023 3:00 PM CARAMEL CANDY MAKER Telemedicine [place] [address] Family [facility] [address] [place] [phone] Joao Mary PA-C [address] [place] [address] documented as of this encounter Visit Diagnoses Not on filedocumented in this encounter Care Teams Career Development Facilitator Relationship Specialty Start Date End Date Haley Duff PA-C [address] [place] [address] PCP - General Physician Quality Control Lead 05/17/18 05/28/23 documented as of this encounter
--- OUTSIDE RECORDS SUMMARY | 2023-11-03 13:35 | XMS_ITS | Encounter Summary ---
Author Name Unknown Organization [facility] Address [address], [place] [address] Care Team Providers Care Stone Lathe Operator Name Role Phone Haley Duff PA-C Primary Care Provide r Reason for Visit * Reason Comments Refill Insulin Aspart FlexP en 100 UNIT/ML SOPN [Pharmacy Med Name: Insulin Aspart FlexPen Subcutaneous Solution Pen-injector 100 UNIT/ML] Encounter Details Date Type Department Care Team Description 01/11/2023 Refill [place] [address] Family Medicine [address] [place] [phone] Joao Mary PA-C [address] [place], [place] [phone] Refill (Insulin Aspart FlexPen 100 UNIT/ML SOPN [...] as of this encounter Nursing Notes * Radha Vera - 01/18/2023 9:51 AM CDT Medication Refill - Due for Visit Refill was approved for 90 day supply, patient is due to be seen in the next 90 days. Called patient, was: unable to reach patient. 1st call attempted. Unable to leave message Scheduling Action: Patient needs to schedule an appointment in the next 3 months. If able to schedule, please document date of appointment. No further action is needed. * Joao Mary PA-C - 01/18/2023 8:48 AM CDT I refilled Giana's insulin however he really needs to schedule a follow-up office visit. * Marissa Paige RN - 01/17/2023 7:30 AM CDT Further Assistance Needed on Refill from Clinician Signed order needed. Medication previously signed by another [facility] Clinician. HBA1C is abnormal (11.2 % is greater than 7.9 %) Last qualifying visit: with Joao Mary PA-C on 11/18/22 Next scheduled visit: None HBA1C: 11.2 % on 11/18/2022 Review pended order for accuracy and sign if appropriate and Close encounter Requested Prescriptions Pending Prescriptions Disp Refills Insulin Aspart FlexPen 100 UNIT/ML SOPN [Pharmacy Med Name: Insulin Aspart FlexPen Subcutaneous Solution Pen-injector 100 UNIT/ML] 15 mL 0 Sig: INJECT 12 UNITS SUBCUTANEOUS DAILY. USE 3-4 UNITS PER MEAL. * Interface, Out Surescripts Prov Query - 01/11/2023 12:16 PM CDT Insulin Aspart FlexPen 100 UNIT/ML SOPN [Pharmacy Med Name: Insulin Aspart FlexPen Subcutaneous Solution Pen-injector 100 UNIT/ML] Medication started: 08/06/2017 Last ordered by TYLER HERRERA (52 days ago) QTY: 15, Refills: 0, Sig: inject 12 units subcutaneous daily. use 3-4 units per meal. (changed but equivalent) -> A qualifying visit was not found within the last 2 years. -> HBA1C is abnormal (11.2 % is greater than 7.9 %) Last qualifying visit: None (A recent visit (in Family Practice with JOAO MARY) was found) Next scheduled visit: None HBA1C: 11.2 % on 11/18/2022 [employer] Embedded Refills, Reference: [id number], 01/11/2023 12:16:26 PM CDT, Pool: PATRICIA FP REFILL ([id number]) * Interface, Out [place] Prov Query - 01/11/2023 12:16 PM CDT The following lab order(s) may be associated with the Result Note below: HGB A1C Notes recorded by Joao Mary on 11/26/2022 at 12:54 PM MATERIALS ANALYST Please let Giana know I refilled his Lantus insulin and his Lisinopril, Metoprolol and [place] inhaler. He had left prior to finishing [...] Department Care Team Description 11/08/2023 3:00 PM MATERIALS ANALYST Telemedicine [facility] Family Medicine [address] [place] [address] Joao Mary PA-C [address] [place] [address] documented as of this encounter Visit Diagnoses Not on filedocumented in this encounter Care Teams Stone Lathe Operator Relationship Specialty Start Date End Date Haley Duff PA-C [address] [place] [address] PCP - General Physician Head Lineman 05/17/18 05/28/23 documented as of this encounter
--- OUTSIDE RECORDS SUMMARY | 2023-11-03 13:35 | XMS_ITS | Encounter Summary ---
Author Name Unknown Organization [facility] Address [address], [place] [address] Care Team Providers Care Splitter Operator Name Role Phone Joao Mary PA-C Primary Care Provider [phone] Reason for Visit * Reason Comments Refill fluticasone-salmeter ol (ADVAIR) 500-50 MCG/ACT diskus inhaler Encounter Details Date Type Department Care Team Description 05/29/2023 Refill [place] [address] Family Medicine [address] [place] [address] Joao Mary PA-C [address] [place] [address] Refill (fluticasone-salmeterol (ADVAIR) 500-50 MCG/ACT diskus inhaler) Social History Tobacco Use Types Packs/Day Years [...] as of this encounter Nursing Notes * Evie Uribe RN - 05/31/2023 9:10 AM CDT Patient notified of refills. * Tanisha Miguel RN - 05/29/2023 7:34 PM CDT Clinician Action: Input needed regarding Medication Clinician Next Step: Patient IS expecting a call back from care team Specific Request(s): 1. Pt scheduled for video visit with primary care provider 06/11/23. Pt is requesting one time refills of medications below. Has two LANTUS SOLOSTAR 100 UNIT/ML pens left, takes anywhere from 18 - 23 units daily depending onblood sugars. Needs one pen to get through until appointment Has one Insulin Aspart FlexPen 100 UNIT/ML SOPN takes about 14 units total daily. Needs one pen to get through until appointment Has one 3 mg dose glucagon (BAQSIMI TWO PACK) 3 MG/DOSE nasal powder, usually uses 6 mg total (2 doses) to be revived after seizures with hypoglycemic episodes. Also uses soda, frosting, other sugarydrinks to revive. States seizures/hypoglycemia usually occur when he gets too much activity, works out, walks long distances. Denies losing consciousness, but is unable to respond to environment around him until revived with glucose/sugar. Needs at least one two pack to get through until appointment. Pt states that he is using old albuterol inhaler as needed, taking Advair most days. Would like to discuss having a rescue inhaler prescription. Has over 90 puffs left on current inhaler. Advised would need to discuss with PCP first. Please advise. * Charbel Burton RN - 05/29/2023 6:20 PM CDT Refused refill request. Please notify caller that prescription was refilled on 11/26/22; #1, R:11 and sent to [id number] Advise caller to contact pharmacy for refill. Requested Prescriptions Refused Prescriptions Disp Refills fluticasone-salmeterol (ADVAIR) 500-50 MCG/ACT diskus inhaler 1 Each Sig: Inhale 1 Puff as needed. Refused By: CHARBEL BURTON Reason for Refusal: Duplicate Error * Interface, Out Beezag Prov Query - 05/29/2023 3:29 PM CDT fluticasone-salmeterol (ADVAIR) 500-50 MCG/ACT diskus inhaler Medication started: 11/18/2022 Last ordered by JOAO MARY: 11/26/2022 (184 days ago) QTY: 1, Refills: 11, Sig: inhale 1 puff as needed. (unchanged) -> Refill x 6 months (until due for an office visit) -> Calculate the quantity and number of refills manually. Last qualifying visit: 11/18/2022 (with JOAO MARY) Next scheduled visit: 06/11/2023 (with JOAO MARY) [facility] [employer] Embedded Refills, Reference: [id number], 05/29/2023 3:29:50 PM CDT, Pool: PN REFILL WIZARD ADMIN ([id number]) * CoffmanGricelda - 05/29/2023 3:26 PM CDT Medications - Refill Request Name of prescribing clinician: MARTIN Will, TRAFFIC SAFETY ADMINISTRATOR, LOCUM TENENS PSYCHIATRIST Additional comments (related to the above concern): For this refill, patient would like it filled at the pharmacy listed in Medication Management. If there are questions regarding your request, is it okay to leave a detailed message on your voicemail? No Is there anything else I can help you with today? documented in this encounter Plan of Treatment Upcoming Encounters Date Type Department Care Team Description 11/08/2023 3:00 PM [facility] Telemedicine [place] [id number] [place] [address] Medicine [address] [place] [address] Joao Mary PA-C [address] [place] [address] documented as of this encounter Visit Diagnoses Diagnosis Mild persistent asthma without complication (HRC) Unspecified asthma documented in this encounter Care Teams Splitter Operator Relationship Specialty Start Date End Date Joao Mary PA-C [address] [place] [address] PCP - General Physician Food Service Order Clerk 05/29/23 documented as of this encounter
--- OUTSIDE RECORDS SUMMARY | 2023-11-03 13:35 | XMS_ITS | Encounter Summary ---
Author Name Unknown Organization [facility] Address [address], [place] [address] Care Team Providers Care Missile Facilities Repairer Name Role Phone Haley Duff PA-C Primary Care Provide r Reason for Visit * Reason Comments Medication Questions Encounter Details Date Type Department Care Team Description 11/19/2022 Telephone [place] [address] Family Medicine [address] [place] [address] Joao Mary PA-C [address] [place] [address] Medication Questions Social History Tobacco Use Types Packs/Day Years [...] as of this encounter Nursing Notes * Zonia Gallagher RN - 11/20/2022 8:29 AM CST Unable to leave VM, close at end of day HEAD PUMPER * Eve Jeffers RN - 11/20/2022 8:06 AM CST Attempted to call patient unable to leave voicemail. Attempted to call father- Unable to leave voicemail. HEAD PUMPER * Brinda Arguelles - 11/19/2022 6:28 PM CST Medications - Med Change / Question Is this a medication change or a general question? Med Question What is your question or concern? Went pick up worker 5 or 6 medications at [facility] in [place] off [email or web address] [facility], and none were there. Pt will be out of medications 11/20/2022 What is the name and dose of the medication? 5 or 6 medications How often do you take it? daily Who prescribed it? Joao Mary PA-C If a prescription is needed, patient would like it filled at the pharmacy listed in Medication Management. Is it okay to leave a detailed message on your voicemail? Yes HEAD PUMPER documented in this encounter Plan of Treatment Upcoming Encounters Date Type Department Care Team Description 11/08/2023 3:00 PM WELL HEAD PUMPER Telemedicine [place] [address] Family Medicine [address] [place] [address] Joao Mary PA-C [address] [place] [address] documented as of this encounter Visit Diagnoses Not on filedocumented in this encounter Care Teams Missile Facilities Repairer Relationship Specialty Start Date End Date Haley Duff PA-C [address] [place] [address] PCP - General Physician Client Portfolio Manager 05/17/18 05/28/23 documented as of this encounter
--- OUTSIDE RECORDS SUMMARY | 2023-11-03 13:35 | XMS_ITS | Encounter Summary ---
Author Name Unknown Organization [facility] Address [address], [place] [address] Care Team Providers Care Numerical Control Machine Operator Name Role Phone Haley Duff PA-C Primary Care Provide r Reason for Visit * Reason Comments Pharmacy Encounter Details Date Type Department Care Team Description 11/26/2022 Telephone [facility] Medicine [address] [facility] [place] [address] Haley Duff PA-C [address] [place], [place] [id number] Pharmacy Social History Tobacco Use Types Packs/Day Years [...] as of this encounter Nursing Notes * Kisha Grant LPN - 11/26/2022 3:51 PM CST Left message for patient to call back. [facility] ([facility]), please warm transfercall to extension [phone] to discuss. If no answer at extension, re-route to CSS (Clinical Construction Management Assistant). Message to Patient/Caller: Attempted to call [employer] #, goes to a VM that is not set up. Home # is actually a work #. Attempted to call [employer] ([employer]) mobile # goes to VM that is not set up and home number just rings, no VM. STRIAL ENGINEERING PROFESSOR * Kisha Grant LPN - 11/26/2022 3:49 PM CST ----- Message from Joao Mary PA-C sent at 11/26/2022 12:54 PM INDUSTRIAL ENGINEERING PROFESSOR ----- Please let Giana know I refilled his Lantus insulin and his Lisinopril, Metoprolol and [place] inhaler. He had left prior to finishing his visit with him and I would like to have him schedule a follow-up so we can go through his labs, recheck his blood pressure and make sure we get him on the medication regimen he should be on STRIAL ENGINEERING PROFESSOR * Kisha Grant LPN - 11/26/2022 1:54 PM CST ----- Message from Joao Mary PA-C sent at 11/26/2022 12:54 PM INDUSTRIAL ENGINEERING PROFESSOR ----- Please let Giana know I refilled his Lantus insulin and his Lisinopril, Metoprolol and [place] inhaler. He had left prior to finishing his visit with him and I would like to have him schedule a follow-up so we can go through his labs, recheck his blood pressure and make sure we get him on the medication regimen he should be on STRIAL ENGINEERING PROFESSOR * Kisha Grant LPN - 11/26/2022 1:30 PM CST ----- Message from Joao Mary PA-C sent at 11/26/2022 12:54 PM INDUSTRIAL ENGINEERING PROFESSOR ----- Please let Giana know I refilled his Lantus insulin and his Lisinopril, Metoprolol and Nathan inhaler. He had left prior to finishing his visit with him and I would like to have him schedule a follow-up so we can go through his labs, recheck his blood pressure and make sure we get him on the medication regimen he should be on STRIAL ENGINEERING PROFESSOR * Teri Olivares, JAMEY - 11/26/2022 1:20 PM CST Clinician Action: Input needed regarding Medication Clinician Next Step: Route to CSS (Clinical Construction Management Assistant) pool to follow up Specific Request(s): 1. Clarification needed for dosing regimen for fluticasone-salmeterol (ADVAIR) 500-50 MCG/ACT diskus inhaler. Pharmacy needs clarification on how often pt is to be administering medication. Requested Prescriptions Pending Prescriptions Disp Refills fluticasone-salmeterol (ADVAIR) 500-50 MCG/ACT diskus inhaler 1 Each 11 Sig: Inhale 1 Puff as needed. STRIAL ENGINEERING PROFESSOR * Kate Michelle - 11/26/2022 1:14 PM CST Medications - Pharmacy Calls Is your question or concern about a Prior Authorization? No. What is the question or concern? Clarify direction for use. What is the name and dose of the medication? fluticasone-salmeterol (ADVAIR) 500-50 MCG/ACT diskus inhaler Who prescribed it? MARTIN Covington, EMERGENCY ROOM CLERK, SOFTWARE WRITER STRIAL ENGINEERING PROFESSOR documented in this encounter Plan of Treatment Upcoming Encounters Date Type Department Care Team Description 11/08/2023 3:00 PM INDUSTRIAL ENGINEERING PROFESSOR Telemedicine [address] [address] Joao Mary PA-C [address] [place] [address] documented as of this encounter Visit Diagnoses Diagnosis Mild persistent asthma without complication (HRC) Unspecified asthma documented in this encounter Care Teams Numerical Control Machine Operator Relationship Specialty Start Date End Date Haley Duff PA-C [address] [place] [address] PCP - General Physician Laborer Laboratory 05/17/18 05/28/23 documented as of this encounter
--- OUTSIDE RECORDS SUMMARY | 2023-11-03 13:35 | XMS_ITS | Encounter Summary ---
Author Name Unknown Organization [facility] Address [address] [address] Care Team Providers Care Refinery Technician Name Role Phone Haley Duff PA-C Primary Care Provide r Encounter Details Date Type Department Care Team Description 03/08/2023 Notes/Orders PN CENTRALIZED OUTREACH [address] [place] [address] Haley Duff PA-C [address] [place] [address] Diabetic hypoglycemia (HRC) Social History Tobacco Use Types Packs/Day Years [...] on file documented as of this encounter Plan of Treatment Upcoming Encounters Date Type Department Care Team Description 11/08/2023 3:00 PM DOMESTIC LAUNDRY WORKER Telemedicine [place] [address] [facility] [address] [place] [address] Joao Mary PA-C [address] [place] [address] documented as of this encounter Visit Diagnoses Diagnosis Diabetic hypoglycemia (HRC) Type II or unspecified type diabetes mellitus with other specified manifestations, not stated as uncontrolled documented in this encounter Care Teams Refinery Technician Relationship Specialty Start Date End Date Haley Duff PA-C [address] [place] [address] PCP - General Physician Automotive Finance Manager 05/17/18 05/28/23 documented as of this encounter
--- OUTSIDE RECORDS SUMMARY | 2023-11-03 13:35 | XMS_ITS | Encounter Summary ---
Author Name Unknown Organization [facility] Address [address], [place] [address] Care Team Providers Care Baggage Screener Name Role Phone Joao Mary PA-C Primary Care Provider [phone] Reason for Visit * Reason Comments Refill GLUCAGON EMERGENCY 1 MG Kit [Pharmacy Med Name: Glucagon Emergency Injection Kit 1 MG]; BD PEN NEEDLE JAZZMINE U/F 32G X 4 MM [Pharmacy Med Name: BD Pen Needle Jazzmine U/F Miscellaneous 32G X 4 MM] Encounter Details Date Type Department Care Team Description 06/04/2023 Refill [place] [address] Family Medicine [id number] [place] [phone] Joao Mary PA-C [address] [place] [address] Refill (GLUCAGON EMERGENCY 1 MG Kit [Pharmacy Med Name: Glucagon Emergency Injection Kit 1 MG]; BD PEN NEEDLE JAZZMINE U/F 32G X 4 MM [Pharmacy Med Name: BD Pen Needle Jazzmine U/F Miscellaneous 32G X 4 MM]) Social History Tobacco Use Types Packs/Day Years [...] as of this encounter Nursing Notes * Marissa Paige RN - 06/08/2023 6:34 AM CDT Further Assistance Needed on Refill from Clinician Signed order needed. Medication previously signed by Rufus. Last qualifying visit: 11/18/22 Next scheduled visit: None Review pended order for accuracy and sign if appropriate. Close encounter OR document if lab / appointment is needed for further refills and route to Front Line for scheduling Requested Prescriptions Pending Prescriptions Disp Refills BD PEN NEEDLE JAZZMINE U/F 32G X 4 MM [Pharmacy Med Name: BD Pen Needle Jazzmine U/F Miscellaneous 32G X 4 MM] 500 Each 3 Sig: USE TO INJECT UP TO 5 TIMES DAILY GLUCAGON EMERGENCY 1 MG Kit [Pharmacy Med Name: Glucagon Emergency Injection Kit 1 MG] 2 Each 1 Sig: Inject 1 mg as needed for hypoglycemia * Interface, Out Surescripts Prov Query - 06/04/2023 6:58 PM CDT BD PEN NEEDLE JAZZMINE U/F 32G X 4 MM [Pharmacy Med Name: BD Pen Needle Jazzmine U/F Miscellaneous 32G X 4 MM] Medication started: 12/30/2017 Last ordered by IVA PRITCHARD J: 02/10/2021 (844 days ago) QTY: 500, Refills: 3, Sig: use to inject up to 5 times daily (unchanged) -> The most recent order on 01/31/2023. -> A qualifying visit was not found within the last 2 years. Last qualifying visit: None (A recent visit (in Family Practice with JOAO MARY) was found) Next scheduled visit: None Mobile Location, IP [facility] Embedded Refills, Reference: [id number], 06/04/2023 6:58:56 PM CDT, Pool: NORBERTO REFILL ([id number]) GLUCAGON EMERGENCY 1 MG Kit [Pharmacy Med Name: Glucagon Emergency Injection Kit 1 MG] Medication started: 03/16/2018 Last ordered by IVA PRITCHARD: 05/30/2021 (735 days ago) QTY: 2, Refills: 3, Sig: inject 1 each intramuscularly as needed. (changed) -> The most recent order on 05/20/2023. -> Unable to determine if sig has changed, review required. -> A qualifying visit was not found within the last 2 years. -> HBA1C is abnormal (11.2 % is greater than 7.9 %) Last qualifying visit: None (A recent visit (in Family Practice with JOAO MARY) was found) Next scheduled visit: None HBA1C: 11.2 % on 11/18/2022 [facility] Embedded Refills, Reference: [id number], 06/04/2023 6:58:56 PM CDT, Pool: NORBERTO REFILL ([id number]) * Interface, Out Weatherista Prov Query - 06/04/2023 6:58 PM CDT The following lab order(s) may be associated with the Result Note below: HGB A1C Notes recorded by Joao Mary on 11/26/2022 at 12:54 PM GARMENT FORM ASSEMBLER Please let Giana know I refilled his Lantus insulin and his Lisinopril, Metoprolol and [place] inhaler. He had left prior to finishing [...] Department Care Team Description 11/08/2023 3:00 PM GARMENT FORM ASSEMBLER Telemedicine [place] [address] Family Medicine [address] [place] [address] Joao Mary PA-C [address] [place] [address] documented as of this encounter Visit Diagnoses Not on filedocumented in this encounter Care Teams Baggage Screener Relationship Specialty Start Date End Date Joao Mary PA-C [address] [place] [address] PCP - General Physician Psychiatry Teacher 05/29/23 documented as of this encounter
--- OUTSIDE RECORDS SUMMARY | 2023-11-03 13:35 | XMS_ITS | Encounter Summary ---
Author Name Unknown Organization [facility] Address [address], [place] [address] Care Team Providers Care Material Expediter Name Role Phone Joao Mary PA-C Primary Care Provider [phone] Reason for Visit * Reason Comments Refill glucagon (BAQSIMI TW O PACK) 3 MG/DOSE nasal powder; gabapentin (NEURONTIN) 300 MG capsule Encounter Details Date Type Department Care Team Description 05/29/2023 Refill [place] [address] Family Medicine [id number] [place] [phone] Joao Mary PA-C [address] [place] [address] Refill (glucagon (BAQSIMI TWO PACK) 3 MG/DOSE nasal powder; gabapentin (NEURONTIN) 300 MG capsule) Social History Tobacco Use Types Packs/Day Years [...] as of this encounter Nursing Notes * Gricelda Coffman - 05/29/2023 3:29 PM CDT COPIED FROM SPLIT REFILL ENCOUNTER Medications - Refill Request Name of prescribing clinician: MARTIN Will, DICTAPHONE MECHANIC, GROUP UNDERWRITER Additional comments (related to the above concern): For this refill, patient would like it filled at the pharmacy listed in Medication Management. If there are questions regarding your request, is it okay to leave a detailed message on your voicemail? No Is there anything else I can help you with today? * Interface, Out Pathable Prov Query - 05/29/2023 3:29 PM CDT gabapentin (NEURONTIN) 300 MG capsule Medication started: 08/05/2017 Last ordered by IVA PRITCHARD J: 04/17/2020 (1137 days ago) QTY: 540, Refills: 3, Sig: take 3 capsules by mouth every morning and take 3 capsules by mouth every evening. (unchanged) -> The most recent order on 04/07/2022. -> Medication cannot be delegated. -> A qualifying visit was not found within the last 2 years. Last qualifying visit: None (A recent visit (in Family Practice with JOAO MARY) was found) Next scheduled visit: None [facility] Embedded Refills, Reference: [id number], 05/29/2023 3:29:51 PM CDT, Pool: PN REFILL WIZARD ADMIN ([id number]) glucagon (BAQSIMI TWO PACK) 3 MG/DOSE nasal powder Medication started: 11/14/2020 Last ordered by IVA PRITCHARD J: 11/14/2020 (926 days ago) QTY: 1, Refills: 0, Sig: place 1 dose into one nostril as needed for hypoglycemia. may repeat in 15 minutes prn. do not open tube until readyto use. (changed) -> The most recent order on 11/04/2022. -> Unable to determine if sig has changed, review required. -> Medication cannot be delegated. -> A qualifying visit was not found within the last 2 years. Last qualifying visit: None (A recent visit (in Family Practice with JOAO MARY) was found) Next scheduled visit: None [facility] Embedded Refills, Reference: [id number], 05/29/2023 3:29:51 PM CDT, Pool: PN REFILL WIZARD ADMIN ([id number]) documented in this encounter Plan of Treatment Upcoming Encounters Date Type Department Care Team Description 11/08/2023 3:00 PM BUHR MILL OPERATOR Telemedicine [place] [address] Family Medicine [address] [place] [address] Joao Mary PA-C [address] [place] [address] documented as of this encounter Visit Diagnoses Not on filedocumented in this encounter Care Teams Material Expediter Relationship Specialty Start Date End Date Joao Mary PA-C [address] [place] [address] PCP - General Physician Job Site Superintendent 05/29/23 documented as of this encounter
--- OUTSIDE RECORDS SUMMARY | 2023-11-03 13:35 | XMS_ITS | Encounter Summary ---
Author Name Unknown Organization [facility] Address [address], [place] [address] Care Team Providers Care Sql Server Architect Name Role Phone Haley Duff PA-C Primary Care Provide r Reason for Visit * Reason Comments Forms [facility] Encounter Details Date Type Department Care Team Description 12/22/2022 Telephone [place] [address] Endocrinology [address] [facility] [place] [address] Edna Ham APRN, INCENDIARIES SUPERVISOR [address] [place] [address] Forms ([facility]) Social History Tobacco Use Types Packs/Day Years [...] as of this encounter Nursing Notes * Edna Ham APRN, MAITE - 12/24/2022 7:10 AM CDT 38 pg fax reviewed. Pt had infection in toe and sore tooth. Sent to scan doc. * Ana Parmar - 12/22/2022 3:31 PM CDT Received chart notes for patient sent to Edna via [employer] documented in this encounter Plan of Treatment Upcoming Encounters Date Type Department Care Team Description 11/08/2023 3:00 PM EDITING INTERN Telemedicine [place] [address] Family [facility] [address] [place] [phone] Joao Mary PA-C [address] [place] [address] documented as of this encounter Visit Diagnoses Not on filedocumented in this encounter Care Teams Sql Server Architect Relationship Specialty Start Date End Date Haley Duff PA-C [address] [place] [address] PCP - General Physician Cinder Snapper 05/17/18 05/28/23 documented as of this encounter
--- OUTSIDE RECORDS SUMMARY | 2023-11-03 13:35 | XMS_ITS | Encounter Summary ---
Author Name Unknown Organization [facility] Address [address], [place] [address] Care Team Providers Care Bleaching Machine Operator Name Role Phone Joao Mary PA-C Primary Care Provider [phone] Reason for Visit * Reason Comments Refill ACCU-CHEK SOFTCLIX l ancets [Pharmacy Med Name: Accu-Chek Softclix Lancets Miscellaneous] Encounter Details Date Type Department Care Team Description 06/04/2023 Refill [place] [address] Family Medicine [address] [place] [phone] Joao Mary PA-C [address] [place] [address] Refill (ACCU-CHEK SOFTCLIX lancets [Pharmacy Med Name: Accu-Chek Softclix Lancets Miscellaneous]) Social History Tobacco Use Types Packs/Day Years [...] as of this encounter Nursing Notes * Ted Prince, JAMEY - 06/05/2023 8:35 AM CDT Renewed medication per medication refill standing order. Requested Prescriptions Signed Prescriptions Disp Refills lancets (ACCU-CHEK SOFTCLIX) 400 Each 3 Sig: TEST 4 TIMES DAILY Authorizing Provider: JOAO MARY Ordering User: TED PRINCE Future Appointments Date Time Provider Department Center 06/11/2023 4:00 PM Joao Mary, MARTIN [facility] * Interface, Out Surescripts Prov Query - 06/04/2023 6:58 PM CDT ACCU-CHEK SOFTCLIX lancets [Pharmacy Med Name: Accu-Chek Softclix Lancets Miscellaneous] Medication started: 10/15/2017 Last ordered by IVA PRITCHARD J: 09/05/2021 (637 days ago) QTY: 408, Refills: 3, Sig: use 1 each to test 4 times a day. (changed) -> Unable to determine if sig has changed, review required. -> A qualifying visit was not found within the last 2 years. Last qualifying visit: None (A recent visit (in Family Practice with JOAO MARY) was found) Next scheduled visit: None Age: 28 [employer] Embedded Refills, Reference: [id number], 06/04/2023 6:58:56 PM CDT, Pool: NORBERTO REFILL ([id number]) documented in this encounter Plan of Treatment Upcoming Encounters Date Type Department Care Team Description 11/08/2023 3:00 PM [facility] Telemedicine [place] [address] Family [facility] [address] [place] [phone] Joao Mary PA-C [address] [place] [address] documented as of this encounter Visit Diagnoses Diagnosis 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
--- OUTSIDE RECORDS SUMMARY | 2023-11-03 13:35 | XMS_ITS | Encounter Summary ---
Author Name Unknown Organization [facility] Address [address], [place] [address] Care Team Providers Care Sustainability Consultant Name Role Phone Haley Duff PA-C Primary Care Provide r Reason for Visit * Reason Comments Pharmacy Encounter Details Date Type Department Care Team Description 12/03/2022 Telephone [facility] Medicine [address] [facility] [place] [address] Haley Duff PA-C [address] [place], [place] [phone] Pharmacy Social History Tobacco Use Types Packs/Day [...] as of this encounter Nursing Notes * Katelynn Nixon LPN - 12/03/2022 4:15 PM CST Mailbox is not set up for patient. TION ELECTRONIC WARFARE OPERATOR * Joao Mary PA-C - 12/03/2022 4:08 PM CST I sent new prescription for 20mg dose TION ELECTRONIC WARFARE OPERATOR * Nayana Lopes, RN - 12/03/2022 3:20 PM CST Clinician Action: Input needed regarding Medication Clinician Next Step: Pharmacy requesting call back with clarification or new prescriptions Specific Request(s): 1. See lisinopril. Lisinopril 40 mg tablet; Dispensed number of 90 but sig does not match. If dose is 20 mg, a 20 mg tablet is available. 2. Advair. Not usually written as PRN. If PRN, please indicate how frequently he can use. Last seen 11/26/22. TION ELECTRONIC WARFARE OPERATOR * Ashlee Singh - 12/03/2022 2:33 PM CST Medications - Pharmacy Calls Is your question or concern about a Prior Authorization? No. What is the question or concern? Confirm dosage and quantity. What is the name and dose of the medication? lisinopril (ZESTRIL) 40 MG tablet Who prescribed it? JOAO MARY TION ELECTRONIC WARFARE OPERATOR documented in this encounter Plan of Treatment Upcoming Encounters Date Type Department Care Team Description 11/08/2023 3:00 PM AVIATION ELECTRONIC WARFARE OPERATOR Telemedicine [place] [address] Family Medicine [address] [place] [phone] Joao Mary PA-C [address] [place] [address] documented as of this encounter Visit Diagnoses Diagnosis Essential hypertension (HRC) Unspecified essential hypertension documented in this encounter Care Teams Sustainability Consultant Relationship Specialty Start Date End Date Haley Duff PA-C [address] [place] [address] PCP - General Physician Network Operations Center Technician 05/17/18 05/28/23 documented as of this encounter
--- OUTSIDE RECORDS SUMMARY | 2023-11-03 13:35 | XMS_ITS | Encounter Summary ---
Author Name Unknown Organization [facility] Address [address], [place] [address] Care Team Providers Care General Accounting Clerk Name Role Phone Joao Mary PA-C Primary Care Provider [phone] Reason for Visit * Reason Comments Refill LANTUS SOLOSTAR 100 UNIT/ML pen [Pharmacy Med Name: Lantus SoloStar Subcutaneous Solution Pen-injector 100 UNIT/ML] Encounter Details Date Type Department Care Team Description 05/20/2023 Refill [place] [address] Family [facility] [id number] [place] [phone] Joao Mary PA-C [address] [place] [address] Refill (LANTUS SOLOSTAR 100 UNIT/ML pen [Pharmacy [...] as of this encounter Nursing Notes * Joao Mary PA-C - 05/30/2023 9:50 AM CDT Refilled pending upcoming appointment * Gricelda Coffman - 05/29/2023 3:28 PM CDT Pt scheduled appt on 06/11/23 and requesting refill prior to appt. * Lizzie Angulo - 05/26/2023 9:46 AM CDT Medication Refill - Due for [...] All?? quick action to address request. * Lizzie Angulo - 05/24/2023 12:41 PM CDT Medication Refill - Due for [...] documentation below. * Marissa Paige RN - 05/24/2023 10:57 AM CDT Further Assistance Needed on Refill from Tracer Lathe Set Up Operator Patient is due for Qualifying Visit [...] * Interface, Out Surescripts Prov Query - 05/20/2023 12:08 PM CDT LANTUS SOLOSTAR 100 UNIT/ML pen [Pharmacy Med Name: Lantus SoloStar Subcutaneous Solution Pen-injector 100 UNIT/ML] Medication started: 08/06/2017 Last ordered by JOAO MARY: 02/17/2023 (92 days ago) QTY: 30, Refills: 0, Sig: [...] None HBA1C: 11.2 % on 11/18/2022 [employer] Embedded Refills, Reference: [id number], 05/20/2023 12:08:12 PM CDT, Pool: NORBERTO REFILL ([id number]) * Interface, Out [employer] Query - 05/20/2023 12:08 PM CDT The following lab order(s) may be associated with the Result Note below: HGB A1C Notes recorded by Joao Mary on 11/26/2022 at 12:54 PM PROGRAM AIDE Please let Giana know I refilled his Lantus insulin and his Lisinopril, Metoprolol and [place] inhaler. 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
--- OUTSIDE RECORDS SUMMARY | 2023-11-03 13:35 | XMS_ITS | Encounter Summary ---
Author Name Unknown Organization [facility] Address [address], [place] [address] Care Team Providers Care Certified Court/Medical Interpreter Name Role Phone Joao Mary PA-C Primary Care Provider [phone] Reason for Visit * Reason Comments Refill UltiCare Alcohol Swa bs 70 % PADS [Pharmacy Med Name: UltiCare Alcohol Swabs Pad 70 %] Encounter Details Date Type Department Care Team Description 06/03/2023 Refill [facility] 3800 Endocrinology [address] [facility] [place], [place] [phone] Iva Ham, DIRECTOR PRIVATE MUSIC THERAPY AGENCY, VEGETABLE BUNCHER [address] [place], [place] [phone] Refill (UltiCare Alcohol Swabs 70 % PADS [...] as of this encounter Nursing Notes * Preethi Collins, RN - 06/09/2023 10:34 AM CDT Requested Prescriptions Refused Prescriptions Disp Refills UltiCare Alcohol Swabs 70 % PADS [Pharmacy Med Name: UltiCare Alcohol Swabs Pad 70 %] Sig: Use before testing blood sugars Refused By: PREETHI COLLINS Reason for Refusal: Patient Needs An Appointment * Robles Velasquez - 06/04/2023 4:53 PM CDT Was unable to leave a and they have no mychart established. I sent out a letter for the pt to establish care with an MD. * Vanessa Patel RN - 06/04/2023 2:58 PM CDT Pt overdue for follow up. [place] please assist pt to schedule FV then route back to nursing for refill. * Interface, Out Surescripts Prov Query - 06/03/2023 9:05 PM CDT UltiCare Alcohol Swabs 70 % PADS [Pharmacy Med Name: UltiCare Alcohol Swabs Pad 70 %] Miscellaneous - 12 Month Visit 1 -> An office visit is overdue (performed 19 months ago, required every 12 months). Last qualifying visit: 11/14/2021 (in P3800 ENDOCRINOLOGY) Next scheduled visit: None Last ordered by IVA HAM J: 03/09/2022 (451 days ago) QTY: 200, Refills: 3, Sig: use before testing blood sugars (unchanged) [facility] Embedded Refills, Reference: [id number], 06/03/2023 9:05:06 PM CDT, Pool: LELAND EAST ([id number]) documented in this encounter Plan of Treatment Upcoming Encounters Date Type Department Care Team Description 11/08/2023 3:00 PM FITTER PLACER Telemedicine [place] [address] Family Medicine [address] [place] [phone] Joao Mary PA-C [address] [place] [address] documented as of this encounter Visit Diagnoses Not on filedocumented in this encounter Care Teams Certified Court/Medical Interpreter Relationship Specialty Start Date End Date Joao Mary PA-C [address] [place] [address] PCP - General Physician Riding Coach 05/29/23 documented as of this encounter
--- OUTSIDE RECORDS SUMMARY | 2023-11-03 13:35 | XMS_ITS | Encounter Summary ---
Author Name Unknown Organization [facility] Address [address] [place] [address] Care Team Providers Care Tire Trucker Name Role Phone Haley Duff PA-C Primary Care Provide r Reason for Visit * Reason Comments Medication Problems Encounter Details Date Type Department Care Team Description 11/20/2022 Telephone [place] [facility] [address] [place] [address] Haley Duff PA-C [address] [place] [address] Medication Problems Social History Tobacco Use Types Packs/Day Years [...] as of this encounter Nursing Notes * America Medina RN - 11/20/2022 7:19 PM CST Spoke to Mom who is with pt calling about novolog refill. States pharmacy does not have anything onfile. Pt is out of medication. Advised he is overdue to be seen with endocrinology and needs to schedule an appt. On-call paged: Please call America SHARMA [phone]. re:MR#[id number]. Dr. Андрей Connor returned call- V.O given for insulin aspart (NOVOLOG FLEXPEN) 100 UNIT/ML pen. Advised for pt to f/u with endocrinology or primary. ORT CONTROL OPERATOR documented in this encounter Plan of Treatment Upcoming Encounters Date Type Department Care Team Description 11/08/2023 3:00 PM AIRPORT CONTROL OPERATOR Telemedicine [place] [address] Family [facility] [address] [place] [address] Joao Mary PA-C [address] [place] [address] documented as of this encounter Visit Diagnoses Not on filedocumented in this encounter Care Teams Tire Trucker Relationship Specialty Start Date End Date Haley Duff PA-C [address] [place] [address] PCP - General Physician Cylinder Loader 05/17/18 05/28/23 documented as of this encounter
--- OUTSIDE RECORDS SUMMARY | 2023-11-03 13:35 | XMS_ITS | Encounter Summary ---
Author Name Unknown Organization [facility] Address [address], [place] [address] Care Team Providers Care Gauge Controller Name Role Phone Joao Mary PA-C Primary Care Provider [phone] Reason for Visit * Reason Onset Date Comments MEDICATION CHECK ERRONEOUS ENTRY 06/23/2023 Encounter Details Date Type Department Care Team Description 06/11/2023 4:00 PM CDT Telemedicine [place] [address] Family Medicine [address] [place] [phone] Joao Mary PA-C [address] [place], [place] [phone] Encounters for administrative purpose (Primary Dx) Social History Tobacco Use Types Packs/Day Years [...] on file documented as of this encounter Progress Notes * Joao Mary PA-C - 06/11/2023 4:00 PM CDT This encounter was created in error - please disregard. documented in this encounter Plan of Treatment Upcoming Encounters Date Type Department Care Team Description 11/08/2023 3:00 PM [facility] Telemedicine [place] [address] Family Medicine [address] [place] [address] Joao Mary PA-C [address] [place] [address] documented as of this encounter Visit Diagnoses Diagnosis Encounters for administrative purpose- Primary Encounters for unspecified administrative purpose documented in this encounter Care Teams Gauge Controller Relationship Specialty Start Date End Date Joao Mary PA-C [address] [place] [address] PCP - General Physician Information Assurance Engineer 05/29/23 documented as of this encounter
--- OUTSIDE RECORDS SUMMARY | 2023-11-03 13:35 | XMS_ITS | Encounter Summary ---
Author Name Unknown Organization [facility] Address [address], [place] [address] Care Team Providers Care Gaming Floor Supervisor Name Role Phone Haley Duff PA-C Primary Care Provide r Reason for Visit * Reason Comments LAB RESULTS Encounter Details Date Type Department Care Team Description 11/27/2022 Telephone [place] [address] Family Medicine [address] [place] [address] Joao Mary PA-C [address] [place] [address] LAB RESULTS Social History Tobacco Use Types Packs/Day Years [...] Nursing Notes * Joao Mary PA-C - 11/27/2022 12:39 PM CST A lab letter has been sent regarding need for follow-up R WORKER * Jane Duval LPN - 11/27/2022 11:37 AM CST Tried to call Giana on all numbers listed. No answer and no answering machine. Don can you mail him a letter please. R WORKER * Jane Duval LPN - 11/27/2022 11:36 AM CST ----- Message from Joao Mary PA-C sent at 11/26/2022 12:54 PM PLIER WORKER ----- Please let Giana know I refilled his Lantus insulin and his Lisinopril, Metoprolol and [place] inhaler. He had left prior to finishing his visit with him and I would like to have him schedule a follow-up so we can go through his labs, recheck his blood pressure and make sure we get him on the medication regimen he should be on R WORKER documented in this encounter Plan of Treatment Upcoming Encounters Date Type Department Care Team Description 11/08/2023 3:00 PM PLIER WORKER Telemedicine [place] [address] Family Medicine [address] [place] [phone] Joao Mary PA-C [address] [place] [address] documented as of this encounter Visit Diagnoses Not on filedocumented in this encounter Care Teams Gaming Floor Supervisor Relationship Specialty Start Date End Date Haley Duff PA-C [address] [place] [address] PCP - General Physician Garnetter 05/17/18 05/28/23 documented as of this encounter
--- OUTSIDE RECORDS SUMMARY | 2023-11-03 13:35 | XMS_ITS | Encounter Summary ---
Author Name Unknown Organization [facility] Address [address], [place] [address] Care Team Providers Care Casino Cashier Manager Name Role Phone Haley Duff PA-C Primary Care Provide r Reason for Visit * Reason Comments Refill Insulin Aspart FlexP en 100 UNIT/ML SOPN [Pharmacy Med Name: Insulin Aspart FlexPen Subcutaneous Solution Pen-injector 100 UNIT/ML] Encounter Details Date Type Department Care Team Description 11/19/2022 Refill [facility] 3800 Endocrinology 38[address] [facility] [place] [address] Joao Mary PA-C [address] [place] [address] Refill (Insulin Aspart FlexPen 100 UNIT/ML SOPN [...] of this encounter Nursing Notes * Preethi Collins RN - 11/23/2022 10:41 AM CST Renewed medication per medication refill standing order. Requested Prescriptions Refused Prescriptions Disp Refills Insulin Aspart FlexPen 100 UNIT/ML SOPN [Pharmacy Med Name: Insulin Aspart FlexPen Subcutaneous Solution Pen-injector 100 UNIT/ML] 15 mL Sig: INJECT 12 UNITS SUBCUTANEOUS DAILY. USE 3-4 UNITS PER MEAL. APPOINTMENT REQUIRED FOR FURTHER REFILLS. Refused By: PREETHI COLLINS Reason for Refusal: Patient Needs An Appointment OD CONSULTANT * Mercedes Shannon - 11/20/2022 4:39 PM CST VM is not set up, and patient does not have MC, will try back to reach him OD CONSULTANT * Preethi Collins, JAMEY - 11/20/2022 2:15 PM CST Call pt; assist him to schedule a follow up appt as he is overdue to be seen. Return request to pool once appt has been made. OD CONSULTANT * Interface, Out Surescripts Prov Query - 11/19/2022 6:12 PM CST Insulin Aspart FlexPen 100 UNIT/ML SOPN [Pharmacy Med Name: Insulin Aspart FlexPen Subcutaneous Solution Pen-injector 100 UNIT/ML] Miscellaneous-Diabetes -> An office visit is overdue (performed over 12 months ago, required every 12 months). -> HBA1C is abnormal (11.2 % is greater than 7.9 %) -> Refill x 3 months (courtesy refill. overdue for an office visit) Last qualifying visit: 11/14/2021 (in P3800 ENDOCRINOLOGY) Next scheduled visit: None Last ordered by IVA PRITCHARD J: 07/31/2022 (111 days ago) QTY: 15, Refills: 0, Sig: inject 12 unitssubcutaneous daily. use 3-4 units per meal. (changed but equivalent) HBA1C: 11.2 % on 11/18/2022 [employer] Embedded Refills, Reference: [id number], 11/19/2022 6:12:42 PM METHOD CONSULTANT, Pool: ENDO PNREFILL ([id number]) OD CONSULTANT documented in this encounter Plan of Treatment Upcoming Encounters Date Type Department Care Team Description 11/08/2023 3:00 PM METHOD CONSULTANT Telemedicine [place] [address] Family [facility] [address] [place] [phone] Joao Mary PA-C [address] [place] [address] documented as of this encounter Visit Diagnoses Not on filedocumented in this encounter Care Teams Casino Cashier Manager Relationship Specialty Start Date End Date Haley Duff PA-C [address] [place] [address] PCP - General Physician Animal Anatomy Teacher 05/17/18 05/28/23 documented as of this encounter
--- OUTSIDE RECORDS SUMMARY | 2023-11-03 13:35 | XMS_ITS | Encounter Summary ---
Author Name Unknown Organization [facility] Address [address], [place] [address] Care Team Providers Care Construction Engineering Manager Name Role Phone Haley Duff PA-C Primary Care Provide r Reason for Visit * Reason Onset Date Comments Refill 03/02/2023 EPINEPHrine (EPI PEN) 0.3 MG/0.3ML injection Encounter Details Date Type Department Care Team Description 03/02/2023 Refill [facility] 3800 Endocrinology [address] [facility] [place] [address] Iva Ham, QUALITY CONTROL CLERK, NEW CAR GET READY MECHANIC [address]00 [place] [address] Refill (EPINEPHrine (EPIPEN) 0.3 MG/0.3ML injection) Social History Tobacco Use Types Packs/Day Years [...] as of this encounter Nursing Notes * Aleena Esparza, RN - 03/04/2023 3:50 PM CDT Requested Prescriptions Refused Prescriptions Disp Refills EPINEPHrine (EPIPEN) 0.3 MG/0.3ML injection 1 Each Sig: May repeat. Refilled 02/23/23 * Interface, Out [employer] Query - 03/02/2023 8:27 AM CDT EPINEPHrine (EPIPEN) 0.3 MG/0.3ML injection Miscellaneous - 12 Month Visit 1 -> The request contains a note from the pharmacy. -> Unable to determine if sig has changed, review required. -> An office visit is overdue (performed 16 months ago, required every 12 months). Last qualifying visit: 11/14/2021 (in P3800 ENDOCRINOLOGY) Next scheduled visit: None Last ordered by IVA HAM J: 02/23/2023 (7 days ago) QTY: 1, Refills: 0, Sig: inject 0.3 milliliters intramuscularly as needed for anaphylactic reaction. (changed) [employer] Embedded Refills, Reference: [id number], 03/02/2023 8:27:53 AM CDT, Fco: LELAND MURONDAVONING TEAM 1 ([id number]) documented in this encounter Plan of Treatment Upcoming Encounters Date Type Department Care Team Description 11/08/2023 3:00 PM SERVICE CONSULTANT Telemedicine [place] [address] Family Medicine [address] [place] [phone] Joao Mary PA-C [address] [place] [address] documented as of this encounter Visit Diagnoses Not on filedocumented in this encounter Care Teams Construction Engineering Manager Relationship Specialty Start Date End Date Haley Duff PA-C [address] [place] [address] PCP - General Physician Batter Mixer 05/17/18 05/28/23 documented as of this encounter
--- OUTSIDE RECORDS SUMMARY | 2023-11-03 13:35 | XMS_ITS | Encounter Summary ---
Author Name Unknown Organization [facility] Address [address] [address] Care Team Providers Care Tube Cleaner Name Role Phone Joao Mary PA-C Primary Care Provider [phone] Reason for Visit * Reason Comments Refill UltiCare Alcohol Swa bs 70 % PADS [Pharmacy Med Name: UltiCare Alcohol Swabs Pad 70 %] Encounter Details Date Type Department Care Team Description 05/17/2023 Refill [facility] 3800 Endocrinology [address] [facility]. [place], [place] [phone] Iva Ham, STILL OPERATOR HELPER, ELECTRICAL AND INSTRUMENTATION MANAGER [address] [place], [place] [phone] Refill (UltiCare Alcohol Swabs 70 % PADS [...] as of this encounter Nursing Notes * David Haro RN - 05/24/2023 7:44 AM CDT Requested Prescriptions Refused Prescriptions Disp Refills UltiCare Alcohol Swabs 70 % PADS [Pharmacy Med Name: UltiCare Alcohol Swabs Pad 70 %] Sig: Use before testing blood sugars Refused By: DAVID HARO Reason for Refusal: Patient Needs An Appointment * Mercedes Shannon - 05/18/2023 11:28 AM CDT [facility] to schedule a consult with an MD. Patient cancelled the April Consult with Dr. Watts. * Jeff Wilson RN - 05/18/2023 9:58 AM CDT Please reach out to patient to schedule appointment and route back to nursing pool once complete. Thanks * Interface, Out Surescripts Prov Query - 05/17/2023 5:26 PM CDT UltiCare Alcohol Swabs 70 % PADS [Pharmacy Med Name: UltiCare Alcohol Swabs Pad 70 %] Miscellaneous - 12 Month Visit 1 -> An office visit is overdue (performed over 18 months ago, required every 12 months). Last qualifying visit: 11/14/2021 (in P3800 ENDOCRINOLOGY) Next scheduled visit: None Last ordered by IVA HAM: 03/09/2022 (434 days ago) QTY: 200, Refills: 3, Sig: use before testing blood sugars (unchanged) [employer] Embedded Refills, Reference: [id number], 05/17/2023 5:26:02 PM CDT, Fco: LELAND HOELIZABETH ([id number]) documented in this encounter Plan of Treatment Upcoming Encounters Date Type Department Care Team Description 11/08/2023 3:00 PM JUNIOR BUYER Telemedicine [facility] [id number] [place] [phone] Joao Mary PA-C [address] [place] [address] documented as of this encounter Visit Diagnoses Not on filedocumented in this encounter Care Teams Tube Cleaner Relationship Specialty Start Date End Date Joao Mary PA-C [address] [place] [address] PCP - General Physician Single Pointed Operator 05/29/23 documented as of this encounter
--- OUTSIDE RECORDS SUMMARY | 2023-11-03 13:35 | XMS_ITS | Encounter Summary ---
Author Name Unknown Organization [facility] Address [address], [place] [address] Care Team Providers Care Global Program Director Name Role Phone Haley Duff PA-C Primary Care Provide r Reason for Visit * Reason Comments Refill EPINEPHrine (EPIPEN) 0.3 MG/0.3ML injection [Pharmacy Med Name: EPINEPHrine Injection Solution Auto-injector 0.3 MG/0.3ML] Encounter Details Date Type Department Care Team Description 02/12/2023 Refill [facility] 3800 Endocrinology [address] [facility]. [place], [place] [phone] Iva Ham, MACHINE FARMWORKER, MACHINERY MECHANIC [address] [place], [place] [phone] Refill (EPINEPHrine (EPIPEN) 0.3 MG/0.3ML injection [Pharmacy Med Name: EPINEPHrine Injection Solution Auto-injector 0.3 MG/0.3ML]) Social History Tobacco Use Types Packs/Day Years [...] as of this encounter Nursing Notes * Mercedes Shannon - 02/19/2023 4:25 PM CDT Called again and no Vm however postcard was mailed for patient to call back to schedule. * Sasha Mcqueen - 02/17/2023 1:29 PM CDT No mc, vm box not set up. Will try again later * Lynn Green RN - 02/16/2023 2:22 PM CDT Patient is overdue for appointment, please reach out to the patient to schedule follow up with MD or APC and route back to multiple coil winder once complete. * Interface, Out Surescripts Prov Query - 02/12/2023 7:30 PM CDT EPINEPHrine (EPIPEN) 0.3 MG/0.3ML injection [Pharmacy Med Name: EPINEPHrine Injection Solution Auto-injector 0.3 MG/0.3ML] Miscellaneous - 12 Month Visit 1 -> An office visit is overdue (performed over 15 months ago, required every 12 months). Last qualifying visit: 11/14/2021 (in P3800 ENDOCRINOLOGY) Next scheduled visit: None Last ordered by IVA HAM J: 12/30/2021 (409 days ago) QTY: 1, Refills: 2, Sig: inject 0.3 milliliters intramuscularly as needed for anaphylactic reaction. (unchanged) [employer] Embedded Refills, Reference: [id number], 02/12/2023 7:30:09 PM CDT, Pool: LELAND PNREFILL ([id number]) documented in this encounter Plan of Treatment Upcoming Encounters Date Type Department Care Team Description 11/08/2023 3:00 PM [facility] Telemedicine [place] [id number] [place] [id number] [place] [address] [phone] Joao Mary PA-C [address] [place] [address] documented as of this encounter Visit Diagnoses Not on filedocumented in this encounter Care Teams Global Program Director Relationship Specialty Start Date End Date Haley Duff PA-C [address] [place] [address] PCP - General Physician Aquatics Assistant Department Head 05/17/18 05/28/23 documented as of this encounter
--- OUTSIDE RECORDS SUMMARY | 2023-11-03 13:36 | XMS_ITS | Encounter Summary ---
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 You may call [phone] for help scheduling your appointment. We suggest you call your health insurance company about your coverage and benefits for this appointment. Question Answer Appointment Urgency? 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); Essential hypertension; Mild persistent asthma without complication; Need for hepatitis C screening test; Screening for HIV (human immunodeficiency virus); Diabetic hypoglycemia (HRC) Social History Tobacco Use [...] on file documented as of this encounter Last Filed Vital Signs Vital Sign Reading Time Taken Comments Blood Pressure 179/113 11/18/2022 3:24 PM INDUSTRIAL AUTOMATION SPECIALIST Pulse 77 11/18/2022 3:24 PM INDUSTRIAL AUTOMATION SPECIALIST Temperature - - Respiratory Rate 14 11/18/2022 3:07 PM INDUSTRIAL AUTOMATION SPECIALIST Oxygen Saturation - - Inhaled Oxygen Concentration - - Weight 71.4 kg (157 lb 4.8 oz) 11/18/2022 3:07 P M INDUSTRIAL AUTOMATION SPECIALIST Height 172.7 cm (5' 8) 11/18/2022 3:07 PM INDUSTRIAL AUTOMATION SPECIALIST Body Mass Index 23.92 11/18/2022 3:07 PM INDUSTRIAL AUTOMATION SPECIALIST documented in this encounter Progress Notes * Joao Mary PA-C - 11/18/2022 3:00 PM CST Subjective: Giana Otto is a 27 y.o. male and is here for a comprehensive physical exam. He is somewhat of a poor historian and has not sought regular care for his chronic issues for some time. The followingaddressed: 1). Type 1 diabetes: Last A1C 8.8 (06/22/2019). Has not had diabetes follow-up since 2019 and to hisknowledge is currently supposed to be on a regimen of Lantus insulin 26-28 units daily but has beenrationing due to not having refills taking average of 18 units per day. Has Novolog states to take 1 unit per gram of carbs, averaging 20 units per day but again rationing because of lack of resources to get insulin. He does not really check his blood sugars. Has had CGM but doesn't have what he needs to use it. Has had history of foot ulcers. Has not had regular eye exams. Not currently on a Statin 2). HTN with history of CHF/CKD: Is prescribed Metoprolol 25mg XL daily but not clear if taking as blood pressure elevated today. He was prescribed Lisinopril but questioned possible reaction so not taking. Prescribed Carvedilol but he states made his heart worse. Was prescribed Amlodipine but states Made his blood pressure higher. Also prescribed Lasix but not really taking. 3). Asthma: Poorly controlled. Is supposed to be on Advair 500-50mcg daily but not taking regularly. Does not currently have a rescue inhaler. 4). Polysubstance abuse: Has a history of alcohol dependence and polysubstance drug abuse. Was admitted to [facility] for respiratory failure (06/21/2021) due to Fentanyl OD. He states the person taking care of him told him he was just going to and so he hasn't had much desire to follow up for future medical care. Since discharge from hospital has not been seen until today's visit. Ronald he continues to use CBD and Cratum but denies other drug use. HABITS Smoking: Yes Alcohol use: Some Drug use: Yes Exercise No formal (Discussed importance of continued and increased exercise regimen). Marital Status: Single Children:No Employment: Not working Significant Family Hx Reviewed Colonoscopy: No (Not due for) Do you take any herbs or supplements that were not prescribed by a doctor? No Are you taking calcium supplements? No Are you taking aspirin daily? No Review of Systems Do you have pain that bothers you in your daily life? No Pertinent items are noted in HPI. Comprehensive ROS otherwise negative. Objective: Vitals: 11/18/22 1524 BP: (!) 179/113 Pulse: 77 Resp: General Appearance: Alert, somewhat disheveled, thin male, not acutely distress. Head: Normocephalic, without obvious abnormality, atraumatic Eyes: PERRL, conjunctiva/corneas clear, EOM's intact, fundi benign, both eyes Ears: Normal TM's and external ear canals, both ears Nose: Nares normal, septum midline, mucosa normal, no drainage or sinus tenderness Throat: Lips, mucosa, and tongue normal; teeth and gums normal Neck: Supple, symmetrical, trachea midline, no adenopathy; thyroid: No enlargement/tenderness/nodules; no carotid bruit or JVD Back: Symmetric, no curvature, ROM normal, no CVA tenderness Lungs: Normal effort with occasional wheezing. Chest wall: No tenderness or deformity Heart: Regular rate and rhythm, S1 and S2 normal, no murmur, rub or gallop Abdomen: Soft, non-tender, bowel sounds active all four quadrants, no masses, no organomegaly Extremities: Extremities normal, atraumatic, no cyanosis or edema Pulses: 2+ and symmetric all extremities Skin: Skin color, texture, turgor normal, no rashes or lesions Lymph nodes: Cervical, supraclavicular, and axillary nodes normal Neurologic: CNII-XII intact. Normal strength, sensation and reflexes throughout Assessment: Giana was seen today for annual exam and diabetes. 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 Replace sensor every 14 days. - insulin glargine (LANTUS SOLOSTAR) 100 UNIT/ML pen; Inject 26-27 Units subcutaneously daily. Essential hypertension (HRC) - Comp Metabolic Panel; Future - lisinopril (ZESTRIL) 40 MG tablet; Take 0.5 Tablets (20 mg) by mouth daily. - metoprolol succinate (TOPROL XL) 25 MG 24 hour release tablet; Take 1 Tablet (25 mg) by mouth daily. Mild persistent asthma without complication (HRC) - fluticasone-salmeterol (ADVAIR) 500-50 MCG/ACT diskus inhaler; Inhale 1 Puff as needed. Need for hepatitis C screening test - Hepatitis C Antibody, with Reflex; Future Screening for HIV (human immunodeficiency virus) - HIV 1/2 Ag/Ab 4th Generation; Future Diabetic hypoglycemia (HRC) - insulin glargine (LANTUS SOLOSTAR) 100 UNIT/ML pen; Inject 26-27 Units subcutaneously daily. Discussion: 27 year old with poorly controlled type 1 diabetes, HTN with CKD and CHF, poorly controlled asthma, and history of polysubstance abuse. Discussed getting baseline labs and getting back onregular starting regimen. He was sent to lab and then requested to return to room to tie up plan and follow up however he left after labs and unable to contact him to follow-up. Plan: 1). Will follow-up on labs. 2). Will try resuming medications for now but needs to do a follow-up and regular follow-ups to adequately get issues under control. Patient Counseling: --Nutrition: Stressed importance of moderation in sodium/caffeine intake, saturated fat and cholesterol, caloric balance, sufficient intake of fresh fruits, vegetables, fiber, calcium, iron, and 1 mgof folate supplement per day (for females capable of ). --Discussed the issue of estrogen replacement, calcium supplement, and the daily use of baby aspirin. --Exercise: Stressed the importance of regular exercise. --Substance Abuse: Discussed cessation/primary prevention of tobacco, alcohol, or other drug use; driving or other dangerous activities under the influence; availability of treatment for abuse. --Sexuality: Discussed sexually transmitted diseases, partner selection, use of condoms, avoidance of unintended and contraceptive alternatives. --Injury prevention: Discussed safety belts, safety helmets, smoke detector, smoking near bedding or upholstery. --Dental health: Discussed importance of regular tooth brushing, flossing, and dental visits. --Immunizations reviewed. --Discussed benefits of screening colonoscopy. 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) Ordered: 11/18/2022 documented as of this encounter Results * (ABNORMAL) Albumin/Creatinine Ratio,Random Urine (11/18/2022 3:53 PM INDUSTRIAL AUTOMATION SPECIALIST) Pathologist [facility] Albumin/Creati nine Ratio, Urine, Random 2,428(H) <30 mg/g 11/18/2022 10:40 PM INDUSTRIAL AUTOMATION SPECIALIST [facility] Albumin, Urine, Random 534.1 mg/L 11/18/2022 10:40 PM INDUSTRIAL AUTOMATION SPECIALIST [facility] Creatinine, Urine, Random 22 >20 mg/dL mg/dL 11/18/2022 10:40 PM INDUSTRIAL AUTOMATION SPECIALIST [facility] Urine Non-blood Collection / Unknown 11/18/2022 3:53 PM INDUSTRIAL AUTOMATION SPECIALIST 11/18/2022 3:53 PM INDUSTRIAL AUTOMATION SPECIALIST Joao Mary PA-C LAB_1 [facility] [address] * (ABNORMAL) Comp Metabolic Panel (11/18/2022 3:50 PM INDUSTRIAL AUTOMATION SPECIALIST) Pathologist [facility] Sodium 138 136 - 145 mmol/L 11/18/2022 5:[address] [facility] Potassium 4.6 3.5 - 5.1 mmol/L 11/18/2022 5:[address] [facility] Chloride 101 98 - 109 mmol/L 11/18/2022 5:[address] [facility] CO2 25 20 - 29 mmol/L 11/18/2022 5:[address] [facility] Anion Gap 12 7 - 16 mmol/L 11/18/2022 5:[address] [facility] Calcium 9.0 8.4 - 10.4 mg/dL 11/18/2022 5:[address] [facility] BUN 10 7 - 26 mg/dL 11/18/2022 5:[address] [facility] Creatinine 0.90 0.73 - 1.18 mg/dL 11/18/2022 5:[address] [facility] Alkaline Phosphatase 135 40 - 150 U/L 11/18/2022 5:[address] [facility] AST (SGOT) 34 10 - 40 U/L 11/18/2022 5:[address] [facility] ALT (SGPT) 22 <=55 U/L 11/18/2022 5:[address] [facility] Bilirubin, Total 0.4 0.2 - 1.2 mg/dL 11/18/2022 5:[address] [facility] Protein, Total 7.1 6.4 - 8.3 g/dL 11/18/2022 5:[address] [facility] Albumin 3.4(L) 3.5 - 5.0 g/dL 11/18/2022 5:[address] [facility] Glucose 293(H) 70 - 100 mg/dL 11/18/2022 5:[address] [facility] Comment:The given reference range is for the fasting state. Non-fasting reference range for glucose is 70 - 180 mg/dL. Hours Fasting 16 11/18/2022 5:47 PM [facility] GFR, Estimated >60 >60 mL/min/1.7 3m2 11/18/2022 5:[address] [facility] Blood Venipuncture / Unknown 11/18/2022 3:50 PM INDUSTRIAL AUTOMATION SPECIALIST 11/18/2022 3:50 PM INDUSTRIAL AUTOMATION SPECIALIST Joao Mary PA-C LAB_1 [facility] [address] [place] [address], [facility] [phone] [facility] [address] [place] [address], [facility] [phone] * HIV 1/2 Ag/Ab 4th Generation (11/18/2022 3:50 PM INDUSTRIAL AUTOMATION SPECIALIST) HIV 1/2 Antigen/Antib dung (4th generation) Negative (Non Reactive) Negative (Non Reactive) 11/19/2022 1:13 AM INDUSTRIAL AUTOMATION SPECIALIST [facility] Comment:HIV-1 p24 Antigen an d HIV-1/HIV-2 Antibody not detected Blood Venipuncture / Unknown 11/18/2022 3:50 PM INDUSTRIAL AUTOMATION SPECIALIST 11/18/2022 3:50 PM INDUSTRIAL AUTOMATION SPECIALIST Joao Mary PA-C LAB_1 Performing Organization Address [facility] Phone Number [facility] [address] * Hepatitis C Antibody, with Reflex (11/18/2022 3:50 PM INDUSTRIAL AUTOMATION SPECIALIST) Pathologist [facility] Hepatitis C Antibody Negative (Non Reactive) Negative (Non Reactive) 11/19/2022 1:13 AM INDUSTRIAL AUTOMATION SPECIALIST [facility] Comment:Antibodies to HCV no t detected. Does not exclude the possiblity of exposure to HCV. Blood Venipuncture / Unknown 11/18/2022 3:50 PM INDUSTRIAL AUTOMATION SPECIALIST 11/18/2022 3:50 PM INDUSTRIAL AUTOMATION SPECIALIST Joao Mary PA-C LAB_1 Performing Organization Address [facility] Phone Number [facility] [address] * Lipid Panel and Direct LDL(If Needed) (11/18/2022 3:50 PM INDUSTRIAL AUTOMATION SPECIALIST) [facility] Cholesterol 196 0 - 199 mg/dL 11/18/2022 5:[address] [facility] Triglyceride 125 <=149 mg/dL 11/18/2022 5:[address] [facility] HDL Cholesterol 79 >=40 mg/dL 5:[address] [facility] LDL, Calculated 92 <130 mg/dL 5:[address] [facility] Non HDL Chol, Calculated 117 <=159 mg/dL 11/18/2022 5:[address] [facility] Cholesterol/HDL Ratio 2.5 11/18/2022 5:[address] [facility] Hours Fasting 16 11/18/2022 5:47 PM [facility] Blood Venipuncture / Unknown 11/18/2022 3:50 PM INDUSTRIAL AUTOMATION SPECIALIST 11/18/2022 3:50 PM INDUSTRIAL AUTOMATION SPECIALIST Joao Mary PA-C LAB_1 [facility] [address] [place] [address], [facility] [phone] [facility] [address] [place] [address], [facility] [phone] * (ABNORMAL) Hgb A1C (11/18/2022 3:50 PM INDUSTRIAL AUTOMATION SPECIALIST) Hemoglobin A1C 11.2(H) <=5.6 % 11/19/2022 9:00 AM INDUSTRIAL AUTOMATION SPECIALIST [facility] Estimated Average Glucose (Calc) 275 < 117 mg/dL 11/19/2022 9:00 AM [facility] Comment:Estimated average gl ucose (eAG) converts A1c into glucose units (mg/dL) and estimates average glucose over the past approximately 3 months. The eAG reference interval (<117 mg/dL) corresponds to an A1c of <5.7%. Blood Venipuncture / Unknown 11/18/2022 3:50 PM INDUSTRIAL AUTOMATION SPECIALIST 11/18/2022 3:50 PM INDUSTRIAL AUTOMATION SPECIALIST Narrative [facility] - 11/19/2022 9:00 AM INDUSTRIAL AUTOMATION SPECIALIST For patients not previously diagnosed with diabetes: 5.7-6.4%: Increased risk for diabetes 6.5% and greater: Diagnostic for diabetes For patients diagnosed with diabetes: <8.0%: Goal of therapy for ages 18-75 Clinicians may recommend a higher or lower goal for specific individuals. 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) Type I (juvenile type) diabetes mellitus with renal manifestations, not stated as uncontrolled Essential hypertension (HRC) Unspecified essential hypertension Mild persistent asthma without complication (HRC) Unspecified asthma Need for hepatitis C screening test Special screening examination for other specified viral diseases Screening for HIV (human immunodeficiency virus) Special screening examination for other specified viral diseases Diabetic hypoglycemia (HRC) Type II or unspecified type diabetes mellitus with other specified manifestations, not stated as uncontrolled documented in this encounter Care Teams Mud Worker Relationship Specialty Start Date End Date Haley Duff PA-C [address] [place] [address] PCP - General Physician Windows Architect 05/17/18 05/28/23 documented as of this encounter
--- OUTSIDE RECORDS SUMMARY | 2023-11-03 13:36 | XMS_ITS | Encounter Summary ---
Author Name Unknown Organization [facility] Address [address], [place] [address] Care Team Providers Care Mirror Polisher Name Role Phone Haley Duff PA-C Primary Care Provide r Reason for Visit * Reason Onset Date Comments Refill 10/27/2022 Encounter Details Date Type Department Care Team Description 10/27/2022 Refill [facility] [address] Endocrinology [address] [facility] [place] [address] Iva Ham, DIMENSION STONE QUARRY SUPERVISOR, RIGHT OF WAY MANAGER [address] [place], [place] [id number] Refill Social History Tobacco Use Types Packs/Day Years Used Date Smoking Tobacco: Every Day Cigarettes Smokeless Tobacco: Never Comments:1 Cigarette per day [...] as of this encounter Nursing Notes * Sasha Mcqueen N - 10/29/2022 9:00 AM CST Attempted to reach pt via phone and VM box has not been set up. Pt does not have MC either, sent letter for pt to schedule appointment. WARE CONSULTANT * Araceli Green RN - 10/28/2022 4:35 PM CST OFFICE APPOINTMENT NEEDED Please notify patient to schedule an appointment with APC or MD, next availble. Overdue for follow up. LV:11/2021 FV: NONE RX filled for 30 days. Requested Prescriptions Signed Prescriptions Disp Refills insulin glargine (LANTUS SOLOSTAR) 100 UNIT/ML pen 15 mL 0 Sig: Inject 26-27 Units subcutaneously daily. Authorizing Provider: IVA HAM Ordering User: ARACELI TREADWELL WARE CONSULTANT * Interface, Out Surescripts Prov Query - 10/27/2022 4:32 PM CST The patient chart could not be locked at 10/27/2022 4:32 PM by [facility] in order to process this refill request. Please try re-routing to attempt to retry processing through [employer]. WARE CONSULTANT * Monik Ramirez RN - 10/27/2022 4:31 PM CST Managed by endocrine. WARE CONSULTANT * Interface, Out Surescripts Prov Query - 10/27/2022 4:29 PM CST The patient chart could not be locked at 10/27/2022 4:29 PM by [facility] in order to process this refill request. Please try re-routing to attempt to retry processing through [employer]. WARE CONSULTANT * Interface, Out Surescripts Prov Query - 10/27/2022 4:22 PM CST The patient chart could not be locked at 10/27/2022 4:22 PM by [facility] in order to process this refill request. Please try re-routing to attempt to retry processing through [employer]. WARE CONSULTANT * An Gnozalez - 10/27/2022 4:21 PM CST Medications - Refill Request Name of prescribing clinician: Haley Duff PA-C Additional comments (related to the above concern): Pt is out of medicine, please send refill LIZBETH For this refill, patient would like it filled at the pharmacy listed in Medication Management. If there are questions regarding your request, is it okay to leave a detailed message on your voicemail? Yes WARE CONSULTANT documented in this encounter Plan of Treatment Upcoming Encounters Date Type Department Care Team Description 11/08/2023 3:00 PM SOFTWARE CONSULTANT Telemedicine [place] [address] [address] [address] [place] [phone] Joao Mary PA-C [address] [place] [address] documented as of this encounter Visit Diagnoses Diagnosis Diabetic hypoglycemia (HRC)- Primary Type II or unspecified type diabetes mellitus with other specified manifestations, not stated as uncontrolled documented in this encounter Care Teams Mirror Polisher Relationship Specialty Start Date End Date Haley Duff PA-C [address] [place] [address] PCP - General Physician Silk Brusher 05/17/18 05/28/23 documented as of this encounter
--- OUTSIDE RECORDS SUMMARY | 2023-11-03 13:36 | XMS_ITS | Clinical Summary ---
Author Name Unknown Organization [facility] Address [address] [facility] [address] Care Team Providers Care Teenage Babysitter Name Role Phone [facility] [place] [facility] Pr ovider Allergies Active Allergy Reactions Criticality Noted Date Comments Bees 11/09/2015 Flavoring Agent Anaphylaxis High 11/03/2020 Coconut shrimp - anaphylaxis Copper Unknown 11/25/2011 had a copper ear stud that got infected. Possible skin reaction to copper in the metal format. PN: had a copper ear stud that got infected. Possible skin reaction to copper in the metal format. PN: had a copper ear stud that got infected. Possible skin reaction to copper in the metal format. Penicillins 11/09/2015 Zinc Rash Low 05/12/2018 Medications Medication Sig Dispensed Refills Start Date End Date Status multivitamin, therapeutic with minerals (MULTI-VITAMIN) TABS tablet Take 2 tablets by mouth daily 0 Active insulin aspart (NOVOLOG FLEXPEN) 100 UNIT/ML injectionIndication s:Diabetic ketoacidosis without coma associated with type 1 diabetes mellitus (H) 1 unit/15 grams of carbohydrates three times daily with meals 1 Month 0 09/28/2016 Active insulin aspart (NOVOLOG FLEXPEN) 100 UNIT/ML injectionIndication s:Diabetic ketoacidosis without coma associated with type 1 diabetes mellitus (H) Correction scale: 1 additional unit for blood glucose every 50 points above 150. 1 Month 0 09/28/2016 Active gabapentin (NEURONTIN) 300 MG capsule Take 600 mg by mouth daily At noon 0 Active gabapentin (NEURONTIN) 300 MG capsule Take 900 mg by mouth 2 times daily In the morning and at bed time 0 Active insulin glargine (LANTUS VIAL) 100 UNIT/ML vial Inject 28 Units Subcutaneous At Bedtime 0 Active metoprolol succinate ER (TOPROL-XL) 25 MG 24 hr tablet Take 25 mg by mouth 2 times daily 0 Active amLODIPine (NORVASC) 5 MG tablet Take 5 mg by mouth 2 times daily 0 Active blood glucose monitoring (NO BRAND SPECIFIED) meter device kitIndications:Type 1 diabetes mellitus with hyperglycemia (H) Use as directed Per insurance coverage 1 kit 0 11/05/2020 Active blood glucose (NO BRAND SPECIFIED) test stripIndications:Ty pe 1 diabetes mellitus with hyperglycemia (H) To use to test glucose level in the blood Use to test blood sugar 3 times daily as directed. To accompany glucose monitor brands per insurance coverage. 200 strip 0 11/05/2020 Active blood glucose calibration (NO BRAND SPECIFIED) solutionIndications :Type 1 diabetes mellitus with hyperglycemia (H) Used to calibrate the blood glucose monitor as needed and as directed. To accompany blood glucose brands per insurance coverage 1 Bottle 0 11/05/2020 Active blood glucose (NO BRAND SPECIFIED) lancets standardIndications :Type 1 diabetes mellitus with hyperglycemia (H) To use to test glucose level in the blood Use to test blood sugar 3 times daily as directed. To accompany glucose monitor brands per insurance coverage. 100 each 0 11/05/2020 Active Alcohol Swabs PADSIndications:Typ e 1 diabetes mellitus with hyperglycemia (H) Use to swab the area of the injection or aye as directed Per insurance coverage 100 each 0 11/05/2020 Active Sharps Container MISCIndications:Typ e 1 diabetes mellitus with hyperglycemia (H) Use as directed to dispose of needles, lancets and other sharps Per Insurance coverage 1 each 0 11/05/2020 Active Active Problems Problem Noted Date Diagnosed Date Anaphylaxis, initial encounter 11/03/2020 Acute pancreatitis, unspecif ied complication status, unspecified pancreatitis type 03/03/2017 Hypokalemia 03/03/2017 Hypoglycemia 03/03/2017 Pancreatitis, alcoholic, acute 03/03/2017 DKA (diabetic ketoacidoses) 09/26/2016 Overview: Replacing diagnoses that were inactivated after the 07/04/2021 regulatory import. Resolved Problems Problem Noted Date Diagnosed Date Resolved Date Fracture of malleolus of right ankle 07/26/2019 09/22/2019 Aftercare following surgery of the musculoskeletal system 07/26/2019 09/22/2019 Family History Medical History Relation Comments Diabetes Maternal Grandfather Diabetes Maternal Grandmother Hypertension Mother Relation Status Comments Maternal Grandfather Maternal Grandmother Mother Social History Tobacco Use Types Packs/Day Years Used Date Smoking Tobacco: Former Cigarettes 0.3 Smokeless Tobacco: Never Alcohol Use Standard Drinks/Week Comments Yes 0 (1 standard drink = 0.6 oz pur e alcohol) every couple days 8 beers Adolescent Education Answer Date Record ed Getting School Help Needed Not on file 07/10 Sex and Gender Information Value Date Recorded Sex Assigned at Not on file Gender Identity Not on file Sexual Orientation Not on file Last Filed Vital Signs Vital Sign Reading Time Taken Comments Blood Pressure 158/104 11/05/2020 9:23 AM DRESSED POULTRY GRADER Pulse 78 11/05/2020 9:23 AM DRESSED POULTRY GRADER Temperature 36.7 ??C (98.1 ??F) 11/05/2020 9:23 AM CS T Respiratory Rate 17 11/05/2020 7:45 AM DRESSED POULTRY GRADER Oxygen Saturation 99% 11/05/2020 9:23 AM DRESSED POULTRY GRADER Inhaled Oxygen Concentration - - Weight 73.9 kg (162 lb 14.7 oz) 11/04/2020 4:00 AM DRESSED POULTRY GRADER Height 180.3 cm (5' 11) 08/12/2019 11: 14 PM DRESSED POULTRY GRADER Body Mass Index 22.72 08/12/2019 11:14 PM DRESSED POULTRY GRADER Plan of Treatment Health Maintenance Due Date Last Done Comments ADVANCE CARE PLANNING 1993 ANNUAL REVIEW OF HM ORDERS 1993 DIABETIC FOOT EXAM 1993 EYE EXAM 1993 YEARLY PREVENTIVE VISIT 1993 COVID-19 Vaccine (#1) 1993 Pneumococcal Vaccine: Pediatrics (0 to 5 Years) and At-Risk Patients (6 to 64 Years) (1 of 2 - PCV) 1999 DTAP/TDAP/TD IMMUNIZATION (6 - Tdap) 05/27/2005 05/26/2005, 01/15/1995, 07/01/1994, Additional history exists LIPID 07/27/2006 07/27/2005 MICROALBUMIN 12/22/2007 12/21/2006, 07/27/2005 A1C 01/31/2021 11/03/2020, 06/0 10/2016, 09/26/2016, Additional history exists BMP 11/05/2021 11/05/2020, 10/2020, 11/04/2020, Additional history exists INFLUENZA VACCINE (#1) 2023 0, 07/16/2011, 07/16/2011, Additional history exists PHQ-2 (once per calendar year) 2023 HEPATITIS B IMMUNIZATION Completed 993, 1993, 1993, Additional history exists IPV IMMUNIZATION Completed 01/15/1998, , 07/01/1994, Additional history exists HEPATITIS C SCREENING Completed 10/07/2010 HIV SCREENING Completed 10/07/2010 HPV IMMUNIZATION Aged Out No longer e ligible based on patient's age to complete this topic MENINGITIS IMMUNIZATION Aged Out No l onger eligible based on patient's age to complete this topic RSV MONOCLONAL ANTIBODY Aged Out No l onger eligible based on patient's age to complete this topic Medical Devices Implanted Type Area Supervisor Tank House Device Identifier Shelf Expiration Date Model / Serial / Lot Imp Scr Zim Canc Hex [id number] Pt Implanted:Qty: 1 on 06/27/2019 by Pako Sykes MD at [facility] Metallic Hardware/Anc hor Right: Ankle [employer] [id number] 50-01 / / Advance Directives For more information, please contact: [phone] Latest Code Status on File Code Status Date Activated Date Inactivated Comments Full Code 11/05/2020 7:27 AM Question Answer Comments Code status determined by: Discussion wi th patient/ legal decision maker Code Status History Code Status Date Activated Date Inactivated Comments Full Code 11/04/2020 1:21 AM 11/05/2020 7:27 AM All bas ic and advanced life-sustaining interventions are performed as appropriate Question Answer Comments Code status determined by: Discussion with patient/ legal decision maker Full Code 03/04/2017 6:11 PM 10/02/2018 5:11 PM Full Code 03/03/2017 2:56 AM 03/04/2017 6:11 PM Full Code 09/28/2016 11:02 AM 03/03/2017 2:56 AM Care Teams Teenage Babysitter Relationship Specialty Start Date End Date [facility] [address] [address] PCP - General 03/02/23
--- OUTSIDE RECORDS SUMMARY | 2023-11-03 13:36 | XMS_ITS | Referral Summary ---
Author Name Unknown Organization [facility] Address [address] [facility] [place] [address] Care Team Providers Care Refrigerating Oiler Name Role Phone [facility] [place] [facility] Pr ovider Allergies Active Allergy [...] surgery of the musculoskeletal system 07/26/2019 09/22/2019 Social History Tobacco Use Types Packs/Day Years [...] Comments Blood Pressure 158/104 11/05/2020 9:23 AM CREW MESS ATTENDANT Pulse 78 11/05/2020 9:23 AM CREW MESS ATTENDANT Temperature 36.7 ??C (98.1 ??F) 11/05/2020 9:23 AM CS T Respiratory Rate 17 11/05/2020 7:45 AM CREW MESS ATTENDANT Oxygen Saturation 99% 11/05/2020 9:23 AM CREW MESS ATTENDANT Inhaled Oxygen Concentration - - Weight 73.9 kg (162 lb 14.7 oz) 11/04/2020 4:00 AM CREW MESS ATTENDANT Height 180.3 cm (5' 11) 08/12/2019 11: 14 PM CREW MESS ATTENDANT Body Mass Index 22.72 08/12/2019 11:14 PM CREW MESS ATTENDANT Plan of Treatment Not on file Medical Devices Implanted Type Area Ice Puller Device Identifier Shelf Expiration Date Model / Serial / Lot Imp Scr Zim Canc Hex [id number] Pt Implanted:Qty: 1 on 06/27/2019 by Pako Sykes MD at [facility] Metallic Hardware/Anc hor Right: Ankle [employer] [id number] 50-01 / / Advance Directives For more information, please contact: [phone] Latest Code Status on File Code Status [...] 11:02 AM 03/03/2017 2:56 AM Care Teams Refrigerating Oiler Relationship Specialty Start Date End Date [facility] [address] [address] PCP - General 03/02/23
--- OUTSIDE RECORDS SUMMARY | 2023-11-03 13:36 | XMS_ITS | Encounter Summary ---
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); Well adult exam; Need for hepatitis C screening test; Screening for HIV (human immunodeficiency virus); Essential hypertension Social History Tobacco Use Types Packs/Day Years [...] Department Care Team Description 11/08/2023 3:00 PM HOTEL RECREATIONAL FACILITIES MANAGER Telemedicine [facility] [address] [address] Medicine [id number] [place] [phone] Joao Mary PA-C [address] [place] [address] documented as of this encounter Procedures Procedure Name Priority Date/Time Associated Diagnosis Comments ALBUMIN/CREAT RATIO Routine 11/18/2022 3 :53 PM HOTEL RECREATIONAL FACILITIES MANAGER 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) HIV 1/2 AG/AB 4TH GEN Routine 11/18/2022 3:50 PM HOTEL RECREATIONAL FACILITIES MANAGER Screening for HIV (human immunodeficiency virus) LIPID PANEL & DIRECT LDL (IF NEEDED) Routine 11/18/2022 3:50 PM HOTEL RECREATIONAL FACILITIES MANAGER Well adult exam COMPREHENSIVE METABOLIC PANEL Routine 11/18/2022 3:50 PM HOTEL RECREATIONAL FACILITIES MANAGER Well adult exam Essential hypertension HEPATITIS C ANTIBODY, WITH REFLEX Routine 11/18/2022 3:50 PM HOTEL RECREATIONAL FACILITIES MANAGER Need for hepatitis C screening test HGB A1C Routine 11/18/2022 3:50 PM HOTEL RECREATIONAL FACILITIES MANAGER 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) documented in this encounter Results * (ABNORMAL) Albumin/Creatinine Ratio,Random Urine (11/18/2022 3:53 PM HOTEL RECREATIONAL FACILITIES MANAGER) Albumin/Creati nine Ratio, Urine, Random 2,428(H) <30 mg/g 11/18/2022 10:40 PM HOTEL RECREATIONAL FACILITIES MANAGER [facility] Albumin, Urine, Random 534.1 mg/L 11/18/2022 10:40 PM HOTEL RECREATIONAL FACILITIES MANAGER [facility] Creatinine, Urine, Random 22 >20 mg/dL mg/dL 11/18/2022 10:40 PM HOTEL RECREATIONAL FACILITIES MANAGER [facility] Urine Non-blood Collection / Unknown 11/18/2022 3:53 PM HOTEL RECREATIONAL FACILITIES MANAGER 11/18/2022 3:53 PM HOTEL RECREATIONAL FACILITIES MANAGER Joao Mary PA-C LAB_1 [facility] [address] * (ABNORMAL) Comp Metabolic Panel (11/18/2022 3:50 PM [facility]) Sodium 138 136 - 145 mmol/L 11/18/2022 5:47 PM [facility] Potassium 4.6 3.5 - 5.1 mmol/L 11/18/2022 5:47 PM [facility] Chloride 101 98 - 109 mmol/L 11/18/2022 5:47 PM [facility] CO2 25 20 - 29 mmol/L 11/18/2022 5:47 PM [facility] Anion Gap 12 7 - 16 mmol/L 11/18/2022 5:47 PM [facility] Calcium 9.0 8.4 - 10.4 mg/dL 11/18/2022 5:47 PM [facility] BUN 10 7 - 26 mg/dL 11/18/2022 5:47 PM [facility] Creatinine 0.90 0.73 - 1.18 mg/dL 11/18/2022 5:47 PM [facility] Alkaline Phosphatase 135 40 - 150 U/L 11/18/2022 5:47 PM [facility] AST (SGOT) 34 10 - 40 U/L 11/18/2022 5:47 PM [facility] ALT (SGPT) 22 <=55 U/L 11/18/2022 5:47 PM [facility] Bilirubin, Total 0.4 0.2 - 1.2 mg/dL 11/18/2022 5:47 PM [facility] Protein, Total 7.1 6.4 - 8.3 g/dL 11/18/2022 5:47 PM [facility] Albumin 3.4(L) 3.5 - 5.0 g/dL 11/18/2022 5:47 PM [facility] Glucose 293(H) 70 - 100 mg/dL 11/18/2022 5:47 PM [facility] Comment:The given reference range is for the fasting state. Non-fasting reference range for glucose is 70 - 180 mg/dL. Hours Fasting 16 11/18/2022 5:[address] [facility] GFR, Estimated >60 >60 mL/min/1.7 3m2 11/18/2022 5:47 PM [facility] Blood Venipuncture / Unknown 11/18/2022 3:50 PM HOTEL RECREATIONAL FACILITIES MANAGER 11/18/2022 3:50 PM HOTEL RECREATIONAL FACILITIES MANAGER Joao Mary PA-C LAB_1 [facility] [address] [place] [address], [place] [phone] [facility] [address] [place] [address], [place] [phone] * HIV 1/2 Ag/Ab 4th Generation (11/18/2022 3:50 PM HOTEL RECREATIONAL FACILITIES MANAGER) [facility] HIV 1/2 Antigen/Antib dung (4th generation) Negative (Non Reactive) Negative (Non Reactive) 11/19/2022 1:13 AM HOTEL RECREATIONAL FACILITIES MANAGER [facility] Comment:HIV-1 p24 Antigen an d HIV-1/HIV-2 Antibody not detected Blood Venipuncture / Unknown 11/18/2022 3:50 PM HOTEL RECREATIONAL FACILITIES MANAGER 11/18/2022 3:50 PM HOTEL RECREATIONAL FACILITIES MANAGER Joao Mary PA-C LAB_1 Performing Organization Address [facility] Co de Phone Number [facility] [address] [place] [address] * Hepatitis C Antibody, with Reflex (11/18/2022 3:50 PM HOTEL RECREATIONAL FACILITIES MANAGER) [facility] Hepatitis C Antibody Negative (Non Reactive) Negative (Non Reactive) 11/19/2022 1:13 AM HOTEL RECREATIONAL FACILITIES MANAGER [facility] Comment:Antibodies to HCV no t detected. Does not exclude the possiblity of exposure to HCV. Blood Venipuncture / Unknown 11/18/2022 3:50 PM HOTEL RECREATIONAL FACILITIES MANAGER 11/18/2022 3:50 PM HOTEL RECREATIONAL FACILITIES MANAGER Joao Mary PA-C LAB_1 Performing Organization Address [facility]/ZIP Co de Phone Number [facility] [address] [place] [address] * Lipid Panel and Direct LDL(If Needed) (11/18/2022 3:50 PM HOTEL RECREATIONAL FACILITIES MANAGER) [facility] Cholesterol 196 0 - 199 mg/dL 11/18/2022 5:47 PM [facility] Triglyceride 125 <=149 mg/dL 11/18/2022 5:47 PM [facility] HDL Cholesterol 79 >=40 mg/dL 3 5:47 PM [facility] LDL, Calculated 92 <130 mg/dL 3 5:47 PM [facility] Non HDL Chol, Calculated 117 <=159 mg/dL 11/18/2022 5:47 PM [facility] Cholesterol/HDL Ratio 2.5 11/18/2022 5:47 PM [facility] Hours Fasting 16 11/18/2022 5:[address] [facility] Blood Venipuncture / Unknown 11/18/2022 3:50 PM HOTEL RECREATIONAL FACILITIES MANAGER 11/18/2022 3:50 PM HOTEL RECREATIONAL FACILITIES MANAGER Joao Mary PA-C LAB_1 [facility] [address] [place] [address], [facility] [phone] [facility] [address] [place] [address], [facility] [phone] * (ABNORMAL) Hgb A1C (11/18/2022 3:50 PM HOTEL RECREATIONAL FACILITIES MANAGER) [facility] Hemoglobin A1C 11.2(H) <=5.6 % 11/19/2022 9:00 AM [facility] Estimated Average Glucose (Calc) 275 < 117 mg/dL 11/19/2022 9:00 AM [facility] Comment:Estimated average gl ucose (eAG) converts A1c into glucose units (mg/dL) and estimates average glucose over the past approximately 3 months. The eAG reference interval (<117 mg/dL) corresponds to an A1c of <5.7%. Blood Venipuncture / Unknown 11/18/2022 3:50 PM HOTEL RECREATIONAL FACILITIES MANAGER 11/18/2022 3:50 PM HOTEL RECREATIONAL FACILITIES MANAGER Narrative [facility] - 11/19/2022 9:00 AM HOTEL RECREATIONAL FACILITIES MANAGER For patients not previously diagnosed with diabetes: 5.7-6.4%: Increased risk for diabetes 6.5% and greater: Diagnostic for diabetes For patients diagnosed with diabetes: <8.0%: Goal of therapy for ages 18-75 Clinicians may recommend a higher or lower goal for specific individuals. 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) Type I (juvenile type) diabetes mellitus with renal manifestations, not stated as uncontrolled Well adult exam Routine general medical examination at a health care facility Need for hepatitis C screening test Special screening examination for other specified viral diseases Screening for HIV (human immunodeficiency virus) Special screening examination for other specified viral diseases Essential hypertension (HRC) Unspecified essential hypertension documented in this encounter Care Teams Academic Counselor Relationship Specialty Start Date End Date Haley Duff PA-C [address] [place] [address] PCP - General Physician Professor In Family Studies 05/17/18 05/28/23 documented as of this encounter
--- OUTSIDE RECORDS SUMMARY | 2023-11-03 13:36 | XMS_ITS | Clinical Summary ---
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 reports are released immediately into your electronicmedical record. You may view this report before your referring provider.If you have questions, please contact your health care provider. INDICATION: Pain. TECHNIQUE: Three views left ankle. IMPRESSION: No fracture. Anatomic alignment. No degenerative or inflammatory change.No obvious effusion. Negative radiographs left ankle. Dictated by Blaine Saenz MD @ Oct 30 2023 4:57PM (Electronically Signed) Jimi THAKKAR GING * XR foot LEFT 3 views TODAY (10/30/2023 4:45 PM CHILDREN COUNSELOR) Anatomical Region Laterality Modality FEET, FOOT L Digital Radiogra phy 10/30/2023 4:56 PM CHILDREN COUNSELOR Narrative 10/30/2023 4:56 PM CHILDREN COUNSELOR For Patients: ??As a result of the Cures Act, medical imaging exams and procedure reports are released immediately into your electronic medical record. ??You may view this report before your referring provider. ??If you have questions, please contact your health care provider. INDICATION: Foot and ankle pain. TECHNIQUE: Three views left foot. COMPARISON: 11 October 2019. FINDINGS: Chronic bone island in the proximal phalanx great toe. No fracture or new significant bone lesion. No degenerative or inflammatory change. Soft tissues radiographically normal. Dictated by Blaine Saenz MD @ Oct 30 2023 ??4:56PM (Electronically Signed) ?? Procedure Note Blaine Saenz MD - 10/30/2023 For Patients: As a result of the Cures Act, medical imagingexams and procedure reports are released immediately into your electronicmedical record. You may view this report before your referring provider.If you have questions, please contact your health care provider. INDICATION: Foot and ankle pain. TECHNIQUE: Three views left foot. COMPARISON: 11 October 2019. FINDINGS: Chronic bone island in the proximal phalanx great toe. No fracture or newsignificant bone lesion. No degenerative or inflammatory change. Softtissues radiographically normal. Dictated by Blaine Saenz MD @ Oct 30 2023 4:56PM (Electronically Signed) Jimi [facility] * (ABNORMAL) CBC WITH AUTO DIFFERENTIAL (10/30/2023 5:08 AM CHILDREN COUNSELOR) Only the most recent of3 resultswithin the time period is included. WHITE BLOOD COUNT 7.1 4.5 - 11.0 thou/cu mm 10/30/2023 5:22 AM CHILDREN COUNSELOR [facility] TRAL LABORATORY RED BLOOD COUNT 3.27(L) 4.30 - 5.90 mil/cu mm 10/30/2023 5:22 AM CHILDREN COUNSELOR [facility] TRAL LABORATORY HEMOGLOBIN 10.0(L) 13.5 - 17.5 g/dL 10/30/2023 5:22 AM CHILDREN COUNSELOR [facility] TRAL LABORATORY HEMATOCRIT 29.1(L) 37.0 - 53.0 % 10/30/2023 5:22 AM [facility] TRAL LABORATORY MCV 89 80 - 100 fL 10/30/2023 5:22 AM [facility] TRAL LABORATORY MCH 30.6 26.0 - 34.0 pg 10/30/2023 5:22 AM [facility] TRAL LABORATORY MCHC 34.4 32.0 - 36.0 g/dL 10/30/2023 5:22 AM [facility] TRAL LABORATORY RDW 12.8 11.5 - 15.5 % 10/30/2023 5:22 AM [facility] TRAL LABORATORY PLATELET COUNT 237 140 - 440 thou/cu mm 10/30/2023 5:22 AM [facility] TRAL LABORATORY MPV 11.2(H) 6.5 - 11.0 fL 10/30/2023 5:22 AM [facility] TRAL LABORATORY NRBC 0.0 % 10/30/2023 5:22 AM [facility] TRAL LABORATORY ABS NRBC 0.0 thou /cu mm 10/30/2023 5:22 AM [facility] TRAL LABORATORY % NEUT 50.4 % 10/30/2023 5:22 AM [facility] TRAL LABORATORY % LYMPH 33.5 % 10/30/2023 5:22 AM [facility] TRAL LABORATORY % MONO 11.3 % 10/30/2023 5:22 AM [facility] TR[facility] LAB[facility]ORY % EOS 3.4 % 10/30/2023 5:22 AM [facility] TRAL LABORATORY % BASO 1.0 % 10/30/2023 5:22 AM [facility] TRAL LABORATORY % IMMATURE GRAN (METAS,MYELOS,DE OS) 0.4 % 10/30/2023 5:22 AM [facility] TRAL LABORATORY ABSOLUTE NEUTROPHILS 3.6 1.7 - 7.0 thou/cu mm 10/30/2023 5:22 AM [facility] TRAL LABORATORY ABSOLUTE LYMPHOCYTES 2.4 0.9 - 2.9 thou/cu mm 10/30/2023 5:22 AM [facility] TRAL LABORATORY ABSOLUTE MONOCYTES 0.8 <0.9 thou/cu mm 10/30/2023 5:22 AM CHILDREN COUNSELOR [facility] TRAL LABORATORY ABSOLUTE EOSINOPHILS 0.2 <0.5 thou/cu mm 10/30/2023 5:22 AM CHILDREN COUNSELOR [facility] TRAL LABORATORY ABSOLUTE BASOPHILS 0.1 <0.3 thou/cu mm 10/30/2023 5:22 AM CHILDREN COUNSELOR [facility] TRAL LABORATORY ABSOLUTE IMMATURE GRANULOCYTES(MET ,MYELOS,PROS) 0.0 <0.3 thou/cu mm 10/30/2023 5:22 AM [facility] Blood BLOOD SPECIMEN / Unknown Venipuncture / Unknown 10/30/2023 5:08 AM CHILDREN COUNSELOR 10/30/2023 5:17 AM CHILDREN COUNSELOR Jimi Arnold MD HEMATOLOGY Performing Organization Address [facility] Co de Phone Number [facility] [address] [place] [address], * Magnesium AM (10/30/2023 5:08 AM CHILDREN COUNSELOR) Only the most recent of3 resultswithin the time period is included. MAGNESIUM 1.9 1.6 - 2.6 mg/dL 10/30/2023 5:49 AM CHILDREN COUNSELOR [facility] Blood BLOOD SPECIMEN / Unknown Venipuncture / Unknown 10/30/2023 5:08 AM CHILDREN COUNSELOR 10/30/2023 5:17 AM CHILDREN COUNSELOR Jimi Arnold MD CHEMISTRY Performing Organization Address [facility] Co de Phone Number [facility] [address] [place] [address], * (ABNORMAL) Basic metabolic panel AM (10/30/2023 5:08 AM CHILDREN COUNSELOR) Only the most recent of4 resultswithin the time period is included. SODIUM 139 136 - 145 mmol/L 10/30/2023 5:49 AM [facility] TRAL LABORATORY POTASSIUM 3.7 3.5 - 5.1 mmol/L 10/30/2023 5:49 AM [facility] TRAL LABORATORY CHLORIDE 108(H) 98 - 107 mmol/L 10/30/2023 5:49 AM [facility] TRAL LABORATORY CO2,TOTAL 19(L) 22 - 29 mmol/L 10/30/2023 5:49 AM [facility] TRAL LABORATORY ANION GAP 12 5 - 18 10/30/2023 5:49 AM [facility] TRAL LABORATORY GLUCOSE 197(H) 70 - 99 mg/dL 10/30/2023 5:49 AM [facility] TRAL LABORATORY CALCIUM 8.4(L) 8.6 - 10.0 mg/dL 10/30/2023 5:49 AM [facility] TRAL LABORATORY BUN 13 6 - 20 mg/dL 10/30/2023 5:49 AM [facility] TRAL LABORATORY CREATININE 1.22(H) 0.70 - 1.20 mg/dL 10/30/2023 5:49 AM [facility] TRAL LABORATORY BUN/CREAT RATIO 11 10 - 20 5:49 AM [facility] TRAL LABORATORY eGFR 82(L) >90 mL/min/1.7 3m2 10/30/2023 5:49 AM [facility] TRAL LABORATORY Comment:As of 2021, eG FR is calculated by the CKD-EPI creatinine equation without race adjustment. ??eGFR can be influenced by muscle mass, exercise, and diet. ??The reported eGFR is an estimation only and is only applicable if the renal function is stable. Blood BLOOD SPECIMEN / Unknown Venipuncture / Unknown 10/30/2023 5:08 AM CHILDREN COUNSELOR 10/30/2023 5:17 AM CHILDREN COUNSELOR Jimi Arnold MD [facility]STRY [facility] [address] [place] [address], * SEDIMENTATION RATE (10/29/2023 12:35 PM CHILDREN COUNSELOR) SEDIMENTATION RATE 5 <15 mm/hr 2023 1:42 PM CHILDREN COUNSELOR [facility] TRAL LABORATORY Blood BLOOD SPECIMEN / Unknown Butterfly / Unknown 10/29/2023 12:35 PM CHILDREN COUNSELOR 10/29/2023 12:53 PM CHILDREN COUNSELOR Jimi Arnold MD HEMATOLOGY Performing Organization Address [facility] Co de Phone Number [facility] [address] [phone], [place] * (ABNORMAL) C-REACTIVE PROTEIN (10/29/2023 12:35 PM CHILDREN COUNSELOR) Pathologist [facility] C-REACTIVE PROTEIN 4.5(H) <0.5 mg/dL 10/29/2023 1:39 PM CHILDREN COUNSELOR [facility] Blood BLOOD SPECIMEN / Unknown Butterfly / Unknown 10/29/2023 12:35 PM CHILDREN COUNSELOR 10/29/2023 12:53 PM CHILDREN COUNSELOR Jimi Arnold MD CHEMISTRY Performing Organization Address [facility] de Phone Number [facility] [address] [phone], [place] * Lactate, venous (10/29/2023 4:25 AM CHILDREN COUNSELOR) Only the most recent of7 resultswithin the time period is included. LACTATE,VENOUS 0.9 0.5 - 2.0 mmol/L 10/29/2023 6:06 AM CHILDREN COUNSELOR [facility] Blood BLOOD SPECIMEN / Unknown Venipuncture / Unknown 10/29/2023 4:25 AM CHILDREN COUNSELOR 10/29/2023 5:03 AM CHILDREN COUNSELOR Jimi Arnold MD CHEMISTRY Performing Organization Address [facility] Co de Phone Number [facility] [address] [phone], [place] * SCAN-CARDIAC STRIP (10/28/2023 3:32 PM CHILDREN COUNSELOR) Scanner OTHER * BLOOD CULTURE (10/28/2023 2:51 PM CHILDREN COUNSELOR) Only the most recent of4 resultswithin the time period is included. [facility] CULTURE No Growth. 11/01/2023 8:18 PM CHILDREN COUNSELOR [facility] Blood BLOOD SPECIMEN / Unknown Butterfly / Unknown 10/28/2023 2:51 PM CHILDREN COUNSELOR 10/28/2023 2:58 PM CHILDREN COUNSELOR Narrative [facility] - 11/01/2023 8:18 PM CHILDREN COUNSELOR Low volume blood culture received; possible false negative culture. Crystal Bautista MD MICROBIOL OGY Performing Organization Address City/[facility]/ZIP Co de Phone Number [facility] [address] [place] [address], * SCAN-CARDIAC STRIP (10/28/2023 8:15 AM CHILDREN COUNSELOR) Scanner OTHER * TSH FOR ADD ON (10/28/2023 5:28 AM CHILDREN COUNSELOR) [facility] TSH 1.62 0.27 - 4.20 uIU/mL 10/28/2023 4:41 PM CHILDREN COUNSELOR [facility] Blood BLOOD SPECIMEN / Unknown Venipuncture / Unknown 10/28/2023 5:28 AM CHILDREN COUNSELOR 10/28/2023 5:49 AM CHILDREN COUNSELOR Narrative [facility] - 10/28/2023 4:41 PM CHILDREN COUNSELOR In Adults, TSH values between 5.00 and 10.00 uIU/ml do not necessarily indicate the presence of Hypothyroidism. Correlation with clinical findings such as presence of goiter and/or Thyroperoxidase (TPO) Antibody may be helpful. For more information please refer to ALFONSO 2004; 291: [phone]. Jimi Arnold MD CHEMISTRY [facility] [address] [place] [address], * (ABNORMAL) CBC (10/28/2023 5:28 AM CHILDREN COUNSELOR) [facility] WHITE BLOOD COUNT 11.6(H) 4.5 - 11.0 thou/cu mm 10/28/2023 6:17 AM [facility] TRAL LABORATORY RED BLOOD COUNT 2.74(L) 4.30 - 5.90 mil/cu mm 10/28/2023 6:17 AM [facility] TRAL LABORATORY HEMOGLOBIN 8.4(L) 13.5 - 17.5 g/dL 10/28/2023 6:17 AM [facility] TRAL LABORATORY HEMATOCRIT 22.7(L) 37.0 - 53.0 % 10/28/2023 6:17 AM [facility] TRAL LABORATORY MCV 83 80 - 100 fL 10/28/2023 6:17 AM [facility] TR[facility] LABORATORY MCH 30.7 26.0 - 34.0 pg 10/28/2023 6:17 AM [facility] TR[facility] LABORATORY MCHC 37.0(H) 32.0 - 36.0 g/dL 10/28/2023 6:17 AM [facility] TRAL LABORATORY RDW 12.1 11.5 - 15.5 % 10/28/2023 6:17 AM [facility] TRAL LABORATORY PLATELET COUNT 234 140 - 440 thou/cu mm 10/28/2023 6:17 AM [facility] TRAL LABORATORY MPV 11.3(H) 6.5 - 11.0 fL 10/28/2023 6:17 AM [facility] TRAL LABORATORY NRBC 0.0 % 10/28/2023 6:17 AM [facility] TR[facility] LABORATORY ABS NRBC 0.0 thou /cu mm 10/28/2023 6:17 AM [facility] TR[facility] LABORATORY Blood BLOOD SPECIMEN / Unknown Venipuncture / Unknown 10/28/2023 5:28 AM CHILDREN COUNSELOR 10/28/2023 5:50 AM [facility] Crystal Bautista MD HEMATOLOG Y [facility] [address] * MRSA/SA PCR (10/28/2023 4:23 AM CHILDREN COUNSELOR) MRSA DNA PCR Negative Negative 10/28/2023 5:43 AM CHILDREN COUNSELOR [facility] STAPHYLOCOCCUS AUREUS PCR Negative Negative 10/28/2023 5:43 AM CHILDREN COUNSELOR [facility] LABORATORY Other SPECIMEN FROM INTERNAL NOSE / Unknown Non-Blood / Unknown 10/28/2023 4:23 AM CHILDREN COUNSELOR 10/28/2023 4:30 AM CHILDREN COUNSELOR Narrative [facility] - 10/28/2023 5:43 AM CHILDREN COUNSELOR Test result does not preclude MRSA or SA nasal colonization. Crystal Bautista MD MICROBIOL OGY Performing Organization Address [facility]/ZIP Co de Phone Number [facility] [address] * (ABNORMAL) Electrolytes Panel - DKA (10/27/2023 11:27 PM CHILDREN COUNSELOR) Only the most recent of7 resultswithin the time period is included. SODIUM 140 136 - 145 mmol/L 10/28/2023 12:18 AM CHILDREN COUNSELOR [facility] POTASSIUM 3.4(L) 3.5 - 5.1 mmol/L 10/28/2023 12:18 AM CHILDREN COUNSELOR [facility] CHLORIDE 111(H) 98 - 107 mmol/L 10/28/2023 12:18 AM CHILDREN COUNSELOR [facility] CO2,TOTAL 17(L) 22 - 29 mmol/L 10/28/2023 12:18 AM CHILDREN COUNSELOR [facility] LAB[facility] ANION GAP 12 5 - 18 10/28/2023 12:18 AM CHILDREN COUNSELOR [facility] Blood BLOOD SPECIMEN / Unknown Venipuncture / Unknown 10/27/2023 11:27 PM CHILDREN COUNSELOR 10/27/2023 11:38 PM CHILDREN COUNSELOR Angelo CRENSHAW CHEMISTRY Performing Organization Address City/[facility]/ZIP Co de Phone Number [facility] [address] [place] [address], [place] * EXTRA TUBE GOLD/SST (10/27/2023 7:20 PM CHILDREN COUNSELOR) Only the most recent of2 resultswithin the time period is included. Blood BLOOD SPECIMEN / Unknown Non-Lab Venipuncture / Unknown 10/27/2023 7:20 PM CHILDREN COUNSELOR 10/27/2023 7:20 PM CHILDREN COUNSELOR Jorge Luis Allen MD LABORATORY [facility] [address], [place] [address], [place] * XR FOOT 2 VIEWS RIGHT PORTABLE (10/27/2023 7:16 PM CHILDREN COUNSELOR) Anatomical Region Laterality Modality FEET, FOOT R Digital Radiogra phy 10/28/2023 7:51 AM CHILDREN COUNSELOR Impressions 10/28/2023 7:51 AM CHILDREN COUNSELOR Right great toe proximal phalanx osteochondral lesion with radiographic findings of instability. Dictated by Ling Joel MD @ Oct 28 2023 ??7:51AM (Electronically Signed) ?? Narrative 10/28/2023 7:51 AM CHILDREN COUNSELOR For Patients: ??As a result of the Cures Act, medical imaging exams and procedure reports are released immediately into your electronic medical record. ??You may view this report before your referring provider. ??If you have questions, please contact your health care provider. INDICATION: Pain COMPARISON: 12/1922 TECHNIQUE: Two views right foot. FINDINGS: BONES: Osteochondral lesion in the medial distal right great toe proximal phalanx at the interphalangeal joint articular surface. There is clear lucency undercutting the lesion indicating likely instability. The fragment itself measures 6 x 8 mm. Ankle hardware partially visualized. Normal mineralization. No focal bone lesion. JOINT: Normal joint alignment. Joint spaces: No significant osteoarthritis. No erosions. Soft Tissues: Soft tissue swelling great toe. No foreign body. ?? Procedure Note Ling Joel MD - 10/28/2023 For Patients: As a result of the Cures Act, medical imagingexams and procedure reports are released immediately into your electronicmedical record. You may view this report before your referring provider.If you have questions, please contact your health care provider. INDICATION: Pain COMPARISON: 12/1922 TECHNIQUE: Two views right foot. FINDINGS: BONES: Osteochondral lesion in the medial distal right great toe proximal phalanxat the interphalangeal joint articular surface. There is clear lucencyundercutting the lesion indicating likely instability. The fragment itselfmeasures 6 x 8 mm. Ankle hardware partially visualized. Normal mineralization. No focal bone lesion. JOINT: Normal joint alignment. Joint spaces: No significant osteoarthritis. No erosions. Soft Tissues: Soft tissue swelling great toe. No foreign body. IMPRESSION: Right great toe proximal phalanx osteochondral lesion with radiographicfindings of instability. Dictated by Ling Joel MD @ Oct 28 2023 7:51AM (Electronically Signed) Mary Dang MD GENERAL IMAGING * XR ANKLE 2 VIEWS RIGHT PORTABLE (10/27/2023 7:16 PM CHILDREN COUNSELOR) Anatomical Region Laterality Modality ANKLES, ANKLE R Digital Radiogra phy 10/28/2023 7:53 AM CHILDREN COUNSELOR Impressions 10/28/2023 7:53 AM CHILDREN COUNSELOR Postoperative right ankle open reduction and internal fixation. Medial talar osteochondral lesion with an asymmetric ankle mortise. Dictated by Ling Joel MD @ Oct 28 2023 ??7:53AM (Electronically Signed) ?? Narrative 10/28/2023 7:53 AM CHILDREN COUNSELOR For Patients: ??As a result of the Century Cures Act, medical imaging exams and procedure reports are released immediately into your electronic medical record. ??You may view this report before your referring provider. ??If you have questions, please contact your health care provider. INDICATION: Pain COMPARISON: Foot radiographs 07/17/2020 and 12/20/2022 TECHNIQUE: Three views right ankle. FINDINGS: BONES: Postoperative changes of prior open reduction internal fixation. There is a partially threaded screw across the medial malleolus up into the distal tibial metaphysis. There is a tight wire device across the distal tibial fibular syndesmosis. There is some mild associated bony irregularity. There is an osteochondral lesion in the medial talar dome that measures about 8 mm on the AP view. There is some irregularity of the ankle mortise. There are no acute or actively healing fractures. Normal mineralization. No focal bone lesion. JOINT: Normal ankle joint alignment. No ankle joint effusion. Joint spaces: See above. No osteoarthritis. SOFT TISSUES: Atherosclerotic vascular calcifications much greater than expected for age. No foreign body. ?? Procedure Note Ling Joel MD - 10/28/2023 For Patients: As a result of the Cures Act, medical imagingexams and procedure reports are released immediately into your electronicmedical record. You may view this report before your referring provider.If you have questions, please contact your health care provider. INDICATION: Pain COMPARISON: Foot radiographs 07/17/2020 and 12/20/2022 TECHNIQUE: Three views right ankle. FINDINGS: BONES: Postoperative changes of prior open reduction internal fixation. There usha partially threaded screw across the medial malleolus up into the distaltibial metaphysis. There is a tight wire device across the distal tibialfibular syndesmosis. There is some mild associated bony irregularity.There is an osteochondral lesion in the medial talar dome that measuresabout 8 mm on the AP view. There is some irregularity of the anklemortise. There are no acute or actively healing fractures. Normal mineralization. No focal bone lesion. JOINT: Normal ankle joint alignment. No ankle joint effusion. Joint spaces: See above. No osteoarthritis. SOFT TISSUES: Atherosclerotic vascular calcifications much greater than expected forage. No foreign body. IMPRESSION: Postoperative right ankle open reduction and internal fixation. Medialtalar osteochondral lesion with an asymmetric ankle mortise. Dictated by Ling Joel MD @ Oct 28 2023 7:53AM (Electronically Signed) Mary Dang MD GENERAL IMAGING * POTASSIUM (10/27/2023 6:43 PM CHILDREN COUNSELOR) Only the most recent of11 resultswithin the time period is included. POTASSIUM 3.7 3.5 - 5.1 mmol/L 10/27/2023 7:19 PM CHILDREN COUNSELOR [facility] Blood BLOOD SPECIMEN / Unknown Venipuncture / Unknown 10/27/2023 6:43 PM CHILDREN COUNSELOR 10/27/2023 6:53 PM CHILDREN COUNSELOR Jorge Luis Allen MD CHEMISTRY Performing Organization Address [facility] Co de Phone Number [facility] [address] [place] [address], * (ABNORMAL) CREATININE (10/27/2023 12:45 PM CHILDREN COUNSELOR) eGFR 42(L) >90 mL/min/1.7 3m2 10/27/2023 4:24 PM CHILDREN COUNSELOR [facility] TRAL LABORATORY Comment:As of 2021, eG FR is calculated by the CKD-EPI creatinine equation without race adjustment. ??eGFR can be influenced by muscle mass, exercise, and diet. ??The reported eGFR is an estimation only and is only applicable if the renal function is stable. CREATININE 2.14(H) 0.70 - 1.20 mg/dL 10/27/2023 4:24 PM CHILDREN COUNSELOR [facility] LAB[facility]ATORY Blood BLOOD SPECIMEN / Unknown Butterfly / Unknown 10/27/2023 12:45 PM CHILDREN COUNSELOR 10/27/2023 1:06 PM CHILDREN COUNSELOR Crystal Bautista MD CHEMISTRY Performing Organization Address [facility] Co de Phone Number [facility] [address] [place] [address], * (ABNORMAL) BLOOD GAS,VENOUS (10/27/2023 7:50 AM CHILDREN COUNSELOR) Only the most recent of3 resultswithin the time period is included. PH, VENOUS 7.28(L) 7.32 - 7.43 10/27/2023 8:22 AM CHILDREN COUNSELOR [facility] TRAL LABORATORY PCO2, VENOUS 44 41 - 51 mmHg 10/27/2023 8:22 AM CHILDREN COUNSELOR [facility] TR[facility] LAB[facility] PO2, VENOUS 30(L) 35 - 40 mmHg 10/27/2023 8:22 AM CHILDREN COUNSELOR [facility] TR[facility] LAB[facility] HCO3,VENOUS 21(L) 22 - 29 mmol/L 10/27/2023 8:22 AM CHILDREN COUNSELOR [facility] TRAL LABORATORY BASE EXCESS, VENOUS, POCT -6.0(L) -2.0 - 3.0 10/27/2023 8:22 AM CHILDREN COUNSELOR [facility] TRAL LABORATORY O2 SATURATION, VENOUS 49(L) 70 - 75 % 10/27/2023 8:22 AM CHILDREN COUNSELOR [facility] TRAL LABORATORY PATIENT TEMPERATURE 37.0 Degrees C 10/27/2023 8:22 AM CHILDREN COUNSELOR [facility] TRAL LABORATORY Blood VENOUS BLOOD SPECIMEN / Unknown Butterfly / Unknown 10/27/2023 7:50 AM CHILDREN COUNSELOR 10/27/2023 8:17 AM CHILDREN COUNSELOR Angelo Aj U4EA CHEMISTRY Performing Organization Address [facility]/ZIP Co de Phone Number [facility] [address] [place] [address], [place] * SCAN-CARDIAC STRIP (10/27/2023 7:00 AM CHILDREN COUNSELOR) Scanner OTHER * (ABNORMAL) Serum Glucose - DKA (10/27/2023 5:06 AM CHILDREN COUNSELOR) Only the most recent of3 resultswithin the time period is included. GLUCOSE,RANDOM 174(H) 70 - 139 mg/dL 10/27/2023 7:15 AM CHILDREN COUNSELOR [facility] Blood BLOOD SPECIMEN / Unknown Venipuncture / Unknown 10/27/2023 5:06 AM CHILDREN COUNSELOR 10/27/2023 5:24 AM CHILDREN COUNSELOR Angelo Aj U4EA CHEMISTRY [facility] [address] [place] [id number], [place] * (ABNORMAL) TRIGLYCERIDES propofol (10/27/2023 5:06 AM CHILDREN COUNSELOR) TRIGLYCERIDES 203(H) <150 mg/dL 10/27/2023 6:14 AM CHILDREN COUNSELOR [facility] TRAL LABORATORY PROVIDER ORDERED STATUS RANDOM 10/27/2023 6:14 AM CHILDREN COUNSELOR [facility] [facility] Blood BLOOD SPECIMEN / Unknown Venipuncture / Unknown 10/27/2023 5:06 AM CHILDREN COUNSELOR 10/27/2023 5:24 AM CHILDREN COUNSELOR Angelo Rocha [employer] CHEMISTRY Performing Organization Address [facility] Co de Phone Number [facility] [address] [address], * (ABNORMAL) CK TOTAL propofol (10/27/2023 5:06 AM CHILDREN COUNSELOR) Only the most recent of2 resultswithin the time period is included. CK,TOTAL 449(H) 39 - 308 IU/L 10/27/2023 6:14 AM CHILDREN COUNSELOR [facility] Blood BLOOD SPECIMEN / Unknown Venipuncture / Unknown 10/27/2023 5:06 AM CHILDREN COUNSELOR 10/27/2023 5:24 AM CHILDREN COUNSELOR Angelo Rocha [employer] CHEMISTRY Performing Organization Address [facility] Co de Phone Number [facility] [address] [place] [address], [place] * EXTRA TUBE [place] (10/27/2023 2:56 AM CHILDREN COUNSELOR) Blood BLOOD SPECIMEN / Unknown Extra Tube / Unknown 10/27/2023 2:56 AM CHILDREN COUNSELOR 10/27/2023 3:04 AM CHILDREN COUNSELOR [facility] Performing Organization Address [facility] Co de Phone Number [facility] [address] [address], [place] * (ABNORMAL) TROPONIN T (HS) ONE TIME (10/27/2023 12:54 AM CHILDREN COUNSELOR) TROPONIN T HS 183(H) 6-15 ng/L ng/L 10/27/2023 1:38 AM CHILDREN COUNSELOR [facility] Blood BLOOD SPECIMEN / Unknown Venipuncture / Unknown 10/27/2023 12:54 AM CHILDREN COUNSELOR 10/27/2023 1:00 AM CHILDREN COUNSELOR Jorge Luis Allen MD CHEMISTRY Performing Organization Address [facility]/ZIP Co de Phone Number [facility] [address] [address], * COVID/FLU/RSV PANEL (10/27/2023 12:36 AM CHILDREN COUNSELOR) COVID 19 [facility] Negative Negative 10/27/2023 2:05 AM CHILDREN COUNSELOR [facility] Comment:All PCR tests are lazcano bject to false negative result due to variability in viral load and collection technique. A negative result does not rule out a SARS-CoV-2 infection. Clinical correlation required. INFLUENZA A PCR Negative 4 2:05 AM CHILDREN COUNSELOR [facility] INFLUENZA B PCR Negative 4 2:05 AM CHILDREN COUNSELOR [facility] Respiratory Syncytial Virus Negative 10/27/2023 2:05 AM CHILDREN COUNSELOR [facility] Nasopharyngeal SPECIMEN FROM NASOPHARYNGEAL STRUCTURE / Unknown Non-Blood / Unknown 10/27/2023 12:36 AM CHILDREN COUNSELOR 10/27/2023 12:44 AM CHILDREN COUNSELOR Narrative [facility] - 10/27/2023 2:05 AM CHILDREN COUNSELOR This test has been authorized by FDA under an Emergency Use Authorization (EUA). This test is only authorized for the duration of time the declaration that circumstances exist justifying the authorization of the emergency use of in vitro diagnostic tests for detection of SARS-CoV-2 virus and/or diagnosis of COVID-19 infection under section 564(b)(1) of the Act, 21 U.S.C. 360bbb-3(b) (1), unless the authorization is terminated or revoked sooner. Angelo CRENSHAW MICROBIOLOGY Performing Organization Address [facility] Co de Phone Number [facility] [address] [place] [address], [place] * CT Abdomen Pelvis wo IV (Oral contrast NO) (10/27/2023 12:05 AM CHILDREN COUNSELOR) Anatomical Region Laterality Modality Abdomen, Pelvis, AORTA, LIVER, SPLEEN Computed Tomography 10/27/2023 12:1 4 AM CHILDREN COUNSELOR Impressions 10/27/2023 12:14 AM CHILDREN COUNSELOR 1. Moderate bladder distention is present with a De La Rosa catheter in place. Clinical correlation is recommended to exclude De La Rosa catheter dysfunction. Dictated by Barrie Andersen MD @ 10/27/2023 12:14:02 AM Please note that all CT scans at this facility use dose modulation, iterative reconstruction, and/or weight-based dosing when appropriate to reduce radiation dose to as low as reasonably achievable. Dictated by: Barrie Andersen MD @ 10/27/2023 00:14:12 (Electronically Signed) Narrative 10/27/2023 12:14 AM CHILDREN COUNSELOR For Patients: ??As a result of the Century Cures Act, medical imaging exams and procedure reports are released immediately into your electronic medical record. ??You may view this report before your referring provider. ??If you have questions, please contact your health care provider. INDICATION: Diabetic ketoacidosis with coma and lactic acidosis TECHNIQUE: CT Abdomen and pelvis without i.v. contrast. Coronal and sagittal reformats were obtained. COMPARISON: 11/18/2020 FINDINGS: The sensitivity and specificity of the exam are moderately limited by beam hardening artifacts from scanning with the arms by the patient`s side and motion artifact on the patient`s inability to maintain a breath hold. Lower chest: Small bilateral pleural effusions with mild passive dependent atelectasis is seen in both lower lobes. Liver: Unremarkable. Spleen: Innumerable punctate calcified granulomas are present within the spleen. Pancreas: Pancreatic calcifications are present and may be due to chronic pancreatitis. Gallbladder: Unremarkable. Kidney: Unremarkable. No kidney or ureteral stones or obstruction seen. Adrenal: Unremarkable. Bowel: The NG tube is positioned with the tip in the gastric body. The appendix is normal in appearance and size. Vascular: Unremarkable. Lymph: Numerous subcentimeter retroperitoneal lymph nodes are present measuring up to 8 mm in maximal short axis diameter. The appearance is similar to prior examination. Peritoneum: Unremarkable. No pneumoperitoneum is seen. No significant ascites is noted. Pelvis: Moderate bladder distention is present with a De La Rosa catheter in place. Soft tissue: Unremarkable. Bone: Unremarkable for age. Procedure Note Barrie Andersen MD - 10/27/2023 For Patients: As a result of the Century Cures Act, medical imagingexams and procedure reports are released immediately into your electronicmedical record. You may view this report before your referring provider.If you have questions, please contact your health care provider. INDICATION: Diabetic ketoacidosis with coma and lactic acidosis TECHNIQUE: CT Abdomen and pelvis without i.v. contrast. Coronal andsagittal reformats were obtained. COMPARISON: 11/18/2020 FINDINGS: The sensitivity and specificity of the exam are moderatelylimited by beam hardening artifacts from scanning with the arms by thepatient`s side and motion artifact on the patient`s inability to maintaina breath hold. Lower chest: Small bilateral pleural effusions with mild passive dependentatelectasis is seen in both lower lobes. Liver: Unremarkable. Spleen: Innumerable punctate calcified granulomas are present within thespleen. Pancreas: Pancreatic calcifications are present and may be due to chronicpancreatitis. Gallbladder: Unremarkable. Kidney: Unremarkable. No kidney or ureteral stones or obstruction seen. Adrenal: Unremarkable. Bowel: The NG tube is positioned with the tip in the gastric body. Theappendix is normal in appearance and size. Vascular: Unremarkable. Lymph: Numerous subcentimeter retroperitoneal lymph nodes are presentmeasuring up to 8 mm in maximal short axis diameter. The appearance issimilar to prior examination. Peritoneum: Unremarkable. No pneumoperitoneum is seen. No significantascites is noted. Pelvis: Moderate bladder distention is present with a De La Rosa catheter inplace. Soft tissue: Unremarkable. Bone: Unremarkable for age. IMPRESSION: 1. Moderate bladder distention is present with a De La Rosa catheter in place.Clinical correlation is recommended to exclude De La Rosa catheterdysfunction. Dictated by Barrie Andersen MD @ 10/27/2023 12:14:02 AM Please note that all CT scans at this facility use dose modulation,iterative reconstruction, and/or weight-based dosing when appropriate toreduce radiation dose to as low as reasonably achievable. Dictated by: Barrie Andersen MD @ 10/27/2023 00:14:12 (Electronically Signed) Jorge Luis Allen MD CT * CT HEAD BRAIN WO (10/27/2023 12:02 AM CHILDREN COUNSELOR) Anatomical Region Laterality Modality HEAD, BRAIN Computed Tomogra phy 10/27/2023 12:0 7 AM CHILDREN COUNSELOR Impressions 10/27/2023 12:07 AM CHILDREN COUNSELOR 1. No evidence of acute infarction, intracranial hemorrhage, or mass-effect seen. Dictated by Barrie Andersen MD @ 10/27/2023 12:07:13 AM Please note that all CT scans at this facility use dose modulation, iterative reconstruction, and/or weight-based dosing when appropriate to reduce radiation dose to as low as reasonably achievable. Dictated by: Barrie Andersen MD @ 10/27/2023 00:07:23 (Electronically Signed) Narrative 10/27/2023 12:07 AM CHILDREN COUNSELOR For Patients: ??As a result of the Cures Act, medical imaging exams and procedure reports are released immediately into your electronic medical record. ??You may view this report before your referring provider. ??If you have questions, please contact your health care provider. INDICATION: Mental status change TECHNIQUE: CT Head without i.v. contrast. Coronal and sagittal reformats were obtained. COMPARISON: None FINDINGS: CSF space: The ventricles are normal for age. Brain: No evidence of mass, acute infarction or hemorrhage is seen. No mass- effect or midline shift is seen. The brain parenchyma is otherwise normal in appearance with preservation of the norwood-white matter junction. Calvarium: Lobulated mucosal thickening is seen in the left maxillary sinus. The mastoid air cells are clear. The visualized orbits are grossly unremarkable. The calvarium is unremarkable in appearance with no fractures identified. Procedure Note Barrie Andersen MD - 10/27/2023 For Patients: As a result of the Cures Act, medical imagingexams and procedure reports are released immediately into your electronicmedical record. You may view this report before your referring provider.If you have questions, please contact your health care provider. INDICATION: Mental status change TECHNIQUE: CT Head without i.v. contrast. Coronal and sagittal reformatswere obtained. COMPARISON: None FINDINGS: CSF space: The ventricles are normal for age. Brain: No evidence of mass, acute infarction or hemorrhage is seen. Nomass- effect or midline shift is seen. The brain parenchyma is otherwisenormal in appearance with preservation of the norwood-white matter junction. Calvarium: Lobulated mucosal thickening is seen in the left maxillarysinus. The mastoid air cells are clear. The visualized orbits are grosslyunremarkable. The calvarium is unremarkable in appearance with nofractures identified. IMPRESSION: 1. No evidence of acute infarction, intracranial hemorrhage, ormass-effect seen. Dictated by Barrie Andersen MD @ 10/27/2023 12:07:13 AM Please note that all CT scans at this facility use dose modulation,iterative reconstruction, and/or weight-based dosing when appropriate toreduce radiation dose to as low as reasonably achievable. Dictated by: Barrie Andersen MD @ 10/27/2023 00:07:23 (Electronically Signed) Jorge Luis Allen MD CT * (ABNORMAL) VOLATILES SCREEN (10/26/2023 11:20 PM CHILDREN COUNSELOR) Pathologist [facility] Volatile Screen Blood 2:03 AM [facility] ACETONE GC 19(H) <=0 mg/dL 10/27/2023 2:03 AM [facility] METHYL ALCOHOL BLOOD Negative Negative mg/dL 10/27/2023 2:03 AM [facility] ISOPROPANOL Negative Negative mg/dL 10/27/2023 2:03 AM [facility] ETHANOL Negative Negative g/dL 10/27/2023 2:03 AM [facility] Blood BLOOD SPECIMEN / Unknown Butterfly / Unknown 10/26/2023 11:20 PM CHILDREN COUNSELOR 10/26/2023 11:32 PM CHILDREN COUNSELOR Narrative [facility] - 10/27/2023 2:03 AM CHILDREN COUNSELOR Release to patient->Immediate Angelo CRENSHAW SEND OUTS [facility] [address] [facility] [address] [place] [address], * (ABNORMAL) OSMOLALITY (10/26/2023 11:20 PM CHILDREN COUNSELOR) OSMOLALITY 302(H) 275 - 300 mOsmol/kg 10/27/2023 12:01 AM CHILDREN COUNSELOR [facility] Blood BLOOD SPECIMEN / Unknown Butterfly / Unknown 10/26/2023 11:20 PM CHILDREN COUNSELOR 10/26/2023 11:33 PM CHILDREN COUNSELOR [employer] [facility] CHEMISTRY Performing Organization Address [facility] Co de Phone Number [facility] [address] [place] [address], * (ABNORMAL) HEMOGLOBIN A1C MONITORING (POCT) (10/26/2023 11:20 PM CHILDREN COUNSELOR) HEMOGLOBIN A1C MONITORING (POCT) 12.4(H) <=6.4 % 10/27/2023 8:19 AM CHILDREN COUNSELOR [facility] Blood BLOOD SPECIMEN / Unknown Butterfly / Unknown 10/26/2023 11:20 PM CHILDREN COUNSELOR 10/26/2023 11:32 PM CHILDREN COUNSELOR Narrative [facility] - 10/27/2023 8:19 AM CHILDREN COUNSELOR ? (<=6.9%) ? Indicates good control ? (7.0% to 7.9%) ? Indicates fair control ? (>=8.0%) ? Indicates poor control ?? NOTE: ??These thresholds are guidelines and ?individual targets may vary. Falsely low levels may be seen with: Recent Transfusion, Recent Significant Blood Loss, Hemolytic Diseases, or Falsely elevated levels may be seen with: Untreated Anemias, Splenectomy ? [employer] [facility] Performing Organization Address [facility] Co de Phone Number [facility] [address] [place] [address], [place] * (ABNORMAL) ETHYLENE GLYCOL (10/26/2023 11:20 PM CHILDREN COUNSELOR) PROPYLENE GLYCOL 7(H) <=0 mg/dL 10/27/2023 2:03 AM CHILDREN COUNSELOR [facility] ETHYLENE GLYCOL Negative Negative mg/dL 10/27/2023 2:03 AM CHILDREN COUNSELOR [facility] Blood BLOOD SPECIMEN / Unknown Butterfly / Unknown 10/26/2023 11:20 PM CHILDREN COUNSELOR 10/26/2023 11:32 PM CHILDREN COUNSELOR Narrative [facility] - 10/27/2023 2:03 AM CHILDREN COUNSELOR Release to patient->Immediate Angelo CRENSHAW SEND OUTS [facility] [address] [place] [address], * DRUG SCREEN RAPID URINE INHOUSE (10/26/2023 11:07 PM CHILDREN COUNSELOR) THC METABOLITES,NIURKA L Not Detected Not Detected 10/26/2023 11:38 PM CHILDREN COUNSELOR [facility] PCP,QUAL Not Detected Not Detected 10/26/2023 11:38 PM CHILDREN COUNSELOR [facility] COCAINE,QUAL Not Detected Not Detected 10/26/2023 11:38 PM CHILDREN COUNSELOR [facility] METHAMPHETAMINE , QUALITATIVE Not Detected Not Detected 10/26/2023 11:38 PM CHILDREN COUNSELOR [facility] OPIATES,QUAL Not Detected Not Detected 10/26/2023 11:38 PM CHILDREN COUNSELOR [facility] AMPHETAMINE, QUALITATIVE Not Detected Not Detected 10/26/2023 11:38 PM CHILDREN COUNSELOR [facility] BENZODIAZEPINES ,QUAL Not Detected Not Detected 10/26/2023 11:38 PM CHILDREN COUNSELOR [facility] TRICYCLICS,QUAL Not Detected Not Detected 10/26/2023 11:38 PM CHILDREN COUNSELOR [facility] METHADONE, QUALITATIVE Not Detected Not Detected 10/26/2023 11:38 PM CHILDREN COUNSELOR [facility] BARBITURATES,QU AL Not Detected Not Detected 10/26/2023 11:38 PM CHILDREN COUNSELOR [facility] OXYCODONE, QUALITATIVE Not Detected Not Detected 10/26/2023 11:38 PM CHILDREN COUNSELOR [facility] BUPRENORPHINE, QUALITATIVE Not Detected Not Detected 10/26/2023 11:38 PM CHILDREN COUNSELOR [facility] Urine URINE SPECIMEN / Unknown Non-Blood / Unknown 10/26/2023 11:07 PM CHILDREN COUNSELOR 10/26/2023 11:[address] [facility] - 10/26/2023 11:38 PM CHILDREN COUNSELOR Please Note: ?? This is a screening test only, all results are unconfirmed and should be used for medical purposes only. ??Unconfirmed results must not be used for non-medical purposes (e.g., employment testing, legal testing). ??Suggest analyte specific confirmation for all non-negative results. ??Specimens will be held for 24 hours if additional testing is needed. ?? The following threshold concentrations are used for this analysis: ? Drug ? Screening Threshold ? Buprenorphine ? 10 ng/mL PCP ? 25 ng/mL ?? THC Metabolites ? 50 ng/mL *Opiates ? 100 ng/mL Oxycodone ?100 ng/mL Cocaine ?150 ng/mL Benzodiazepines ?150 ng/mL ?? Methadone ?200 ng/mL ?? Barbiturates ? 200 ng/mL Tricyclic Antidepressants ?300 ng/mL ?? Amphetamines ? 500 ng/mL ?? Methamphetamines ? 500 ng/mL ?*Includes related compounds: ? Codeine ?50 ng/mL ? Heroin ?100 ng/mL ? Morphine ?100 ng/mL ? Hydrocodone ? 400 ng/mL ? Hydromorphone ? 800 ng/mL ?Venlafaxine (Effexor) is a known cross reactant in the PCP ?assay. ??If clinically indicated, order PCP confirmation. Jorge Luis Allen MD URINE [facility] [address] [place] [address], * URINALYSIS MICROSCOPIC (10/26/2023 11:07 PM CHILDREN COUNSELOR) RBC 0-2 0-2, None Seen /HPF 10/26/2023 11:36 PM CHILDREN COUNSELOR [facility] WBC 0-2 0-2, 3-5, None Seen /HPF 10/26/2023 11:36 PM CHILDREN COUNSELOR [facility] BACTERIA Rare None Seen, Rare, Few Bacteria/H PF 10/26/2023 11:36 PM CHILDREN COUNSELOR [facility] EPITHELIAL CELLS Few None Seen, Few Epi/HPF 10/26/2023 11:36 PM CHILDREN COUNSELOR [facility] HYALINE CASTS 0-2 0-2, 3-5 /LPF 10/26/2023 11:36 PM CHILDREN COUNSELOR [facility] Urine URINE SPECIMEN / Unknown Non-Blood / Unknown 10/26/2023 11:07 PM CHILDREN COUNSELOR 10/26/2023 11:16 PM CHILDREN COUNSELOR Jorge Luis Allen MD URINE [facility] [address] [place] [address], [place] * (ABNORMAL) UA W/ SEDIMENT EXAM REFLEXED PER CRITERIA (10/26/2023 11:07 PM CHILDREN COUNSELOR) COLOR Yellow Yellow Color 10/26/2023 11:36 PM CHILDREN COUNSELOR [facility] CLARITY Clear Clear Clarity 10/26/2023 11:36 PM CHILDREN COUNSELOR [facility] SPECIFIC GRAVITY,URINE 1.020 1.010, 1.015, 1.020, 1.025 10/26/2023 11:36 PM CHILDREN COUNSELOR [facility] PH,URINE 5.0(A) 6.0, 7.0, 8.0, 5.5, 6.5, 7.5, 8.5 10/26/2023 11:36 PM CHILDREN COUNSELOR [facility] UROBILINOGEN, QUALITATIVE Normal Normal EU/dl 10/26/2023 11:36 PM CHILDREN COUNSELOR [facility] PROTEIN, URINE Trace(A) Negative mg/dL 10/26/2023 11:36 PM CHILDREN COUNSELOR [facility] GLUCOSE, URINE >=1000(A) Negative mg/dL 10/26/2023 11:36 PM CHILDREN COUNSELOR [facility] KETONES,URINE 15(A) Negative mg/dL 10/26/2023 11:36 PM CHILDREN COUNSELOR [facility] BILIRUBIN,URI NE Negative Negative 10/26/2023 11:36 PM CHILDREN COUNSELOR [facility] OCCULT BLOOD,URINE Small(A) Negative 10/26/2023 11:36 PM CHILDREN COUNSELOR [facility] NITRITE Negative Negative 10/26/2023 11:36 PM CHILDREN COUNSELOR [facility] LEUKOCYTE ESTERASE Negative Negative 10/26/2023 11:36 PM CHILDREN COUNSELOR [facility] Urine URINE SPECIMEN / Unknown Non-Blood / Unknown 10/26/2023 11:07 PM CHILDREN COUNSELOR 10/26/2023 11:16 PM CHILDREN COUNSELOR Jorge Luis Allen MD URINE [facility] [address] [place] [address], [place] * (ABNORMAL) TROPONIN T (HS) ACUTE W/2HR REFLEX (10/26/2023 10:49 PM CHILDREN COUNSELOR) Pathologist [facility] TROPONIN T HS 189(H) 6-15 ng/L ng/L 10/27/2023 12:19 AM CHILDREN COUNSELOR [facility] Blood BLOOD SPECIMEN / Unknown Butterfly / Unknown 10/26/2023 10:49 PM CHILDREN COUNSELOR 10/26/2023 11:01 PM CHILDREN COUNSELOR Narrative [facility] - 10/27/2023 12:19 AM CHILDREN COUNSELOR hs-cTnT (Elecsys Troponin T Gen 5) concentration (s) above the sex-specific 99th percentile (16 ng/L or greater for males or 11 ng/L or greater for females) are indicative of myocardial injury. If initial hs-cTnT <=100 ng/L at presentation, a 0h/2h ABSOLUTE (ng/L) delta change (rising or falling) of >=10 ng/L suggests a significant change, whereas a 0h/2h delta change <=3 ng/L suggests no significant change. If initial hs-cTnT >100 ng/L at presentation, a 0h/2h/ RELATIVE (percent, %) delta change of 20% is suggested to distinguish patients with acute vs. chronic myocardial injury. There are multiple etiologies that can cause hs-cTnT increases above the 99th percentile (myocardial injury) other than acute myocardial infarction. Clinical context and careful clinical evaluation are critical for diagnosis and risk-stratification. The diagnosis of acute myocardial infarction requires a rising and/or falling pattern in hs-cTnT concentrations with at least one value above the sex-specific 99th percentile PLUS at least one of the following clinical criteria: ischemic symptoms, new or presumed new significant ST-T wave changes or new LBBB, development of pathological Q waves, imaging evidence of new loss of viable myocardium or new regional wall motion abnormality, or identification of intracoronary atherothrombosis or an acute angiographic culprit on coronary angiography. In appropriate low-risk patients with a non-ischemic electrocardiogram without active chest pain with a symptom onset >3-hours without recurrence, a single initial hs-cTnT<6 ng/L identifies patient with a very low risk in emergency department patient population. Jorge Luis Allen MD CHEMISTRY Performing Organization Address [facility] Co de Phone Number [facility] [address] [place] [address], [place] * ETHANOL SERUM OR PLASMA (10/26/2023 10:49 PM CHILDREN COUNSELOR) ETHANOL <0.010 <0.010 g/dL 10/27/2023 2:28 AM CHILDREN COUNSELOR [facility] Blood BLOOD SPECIMEN / Unknown Butterfly / Unknown 10/26/2023 10:49 PM CHILDREN COUNSELOR 10/26/2023 11:01 PM CHILDREN COUNSELOR Jorge Luis Allen MD CHEMISTRY Performing Organization Address [facility] de Phone Number [facility] [address] [place] [address], [place] * (ABNORMAL) URIC ACID (10/26/2023 10:49 PM CHILDREN COUNSELOR) URIC ACID 8.0(H) 3.4 - 7.0 mg/dL 10/27/2023 3:20 AM CHILDREN COUNSELOR [facility] Blood BLOOD SPECIMEN / Unknown Butterfly / Unknown 10/26/2023 10:49 PM CHILDREN COUNSELOR 10/26/2023 11:01 PM CHILDREN COUNSELOR Angelo CRENSHAW CHEMISTRY Performing Organization Address [facility] Co de Phone Number [facility] [address] [place] [address], [place] * PHOSPHORUS (10/26/2023 10:49 PM CHILDREN COUNSELOR) PHOSPHORUS 4.2 2.5 - 4.5 mg/dL 10/27/2023 3:20 AM CHILDREN COUNSELOR [facility] Blood BLOOD SPECIMEN / Unknown Butterfly / Unknown 10/26/2023 10:49 PM CHILDREN COUNSELOR 10/26/2023 11:01 PM CHILDREN COUNSELOR Jorge Luis Allen MD CHEMISTRY Performing Organization Address [facility] Co de Phone Number [facility] [address] [address], [place] * LIPASE (10/26/2023 10:49 PM CHILDREN COUNSELOR) LIPASE 54.7 13.0 - 60.0 IU/L 10/27/2023 3:20 AM CHILDREN COUNSELOR [facility] Blood BLOOD SPECIMEN / Unknown Butterfly / Unknown 10/26/2023 10:49 PM CHILDREN COUNSELOR 10/26/2023 11:01 PM CHILDREN COUNSELOR Jorge Luis Allen MD CHEMISTRY Performing Organization Address [facility] Co de Phone Number [facility] [address] [phone], [place] * (ABNORMAL) ACETAMINOPHEN (10/26/2023 10:49 PM CHILDREN COUNSELOR) ACETAMINOPHEN <5.0(L) 10.0 - 30.0 ug/mL 10/27/2023 5:50 AM CHILDREN COUNSELOR [facility] Blood BLOOD SPECIMEN / Unknown Butterfly / Unknown 10/26/2023 10:49 PM CHILDREN COUNSELOR 10/26/2023 11:01 PM CHILDREN COUNSELOR Jorge Luis Allen MD CHEMISTRY Performing Organization Address [facility] Co de Phone Number [facility] [address] [phone], [place] * (ABNORMAL) SALICYLATE (10/26/2023 10:49 PM CHILDREN COUNSELOR) SALICYLATE <0.5(L) 15.0 - 30.0 mg/dL 10/27/2023 3:23 AM CHILDREN COUNSELOR [facility] Blood BLOOD SPECIMEN / Unknown Butterfly / Unknown 10/26/2023 10:49 PM CHILDREN COUNSELOR 10/26/2023 11:01 PM CHILDREN COUNSELOR Jorge Luis Allen MD CHEMISTRY [facility] [address] [address], [place] * (ABNORMAL) HEPATIC FUNCTION PANEL (10/26/2023 10:49 PM CHILDREN COUNSELOR) ALBUMIN 3.9(L) 4.0 - 4.9 g/dL 10/27/2023 12:19 AM CHILDREN COUNSELOR [facility] PROTEIN,TOTAL 6.4 6.0 - 8.0 g/dL 10/27/2023 12:19 AM CHILDREN COUNSELOR [facility] BILIRUBIN,TOTAL 0.7 0.0 - 1.2 mg/dL 10/27/2023 12:19 AM CHILDREN COUNSELOR [facility] BILIRUBIN,DIRECT 0.2 0.0 - 0.3 mg/dL 10/27/2023 12:19 AM CHILDREN COUNSELOR [facility] BILIRUBIN,INDIRE CT 0.5 0.2 - 0.8 mg/dL 10/27/2023 12:19 AM CHILDREN COUNSELOR [facility] ALK PHOSPHATASE 177(H) 40 - 129 IU/L 10/27/2023 12:19 AM CHILDREN COUNSELOR [facility] ALT (SGPT) 48 10 - 50 IU/L 10/27/2023 12:19 AM CHILDREN COUNSELOR [facility] AST (SGOT) 57(H) 10 - 50 IU/L 10/27/2023 12:19 AM CHILDREN COUNSELOR [facility] Blood BLOOD SPECIMEN / Unknown Butterfly / Unknown 10/26/2023 10:49 PM CHILDREN COUNSELOR 10/26/2023 11:01 PM CHILDREN COUNSELOR Jorge Luis Allen MD CHEMISTRY Performing Organization Address City/[facility]/ZIP Co de Phone Number [facility] [address] [address], [place] * XR CHEST 1 VIEW PORTABLE (10/26/2023 10:45 PM CHILDREN COUNSELOR) Anatomical Region Laterality Modality HEART, THORAX, CHEST Digital Rad iography 10/26/2023 10:5 2 PM CHILDREN COUNSELOR Impressions 10/26/2023 10:52 PM CHILDREN COUNSELOR 1. Small lung volumes are present with mild bibasilar subsegmental atelectasis noted. Dictated by Barrie Andersen MD @ Oct 26 2023 10:52PM (Electronically Signed) ?? Narrative 10/26/2023 10:52 PM CHILDREN COUNSELOR For Patients: ??As a result of the Cures Act, medical imaging exams and procedure reports are released immediately into your electronic medical record. ??You may view this report before your referring provider. ??If you have questions, please contact your health care provider. INDICATION: ET tube placement TECHNIQUE: Chest radiograph 1 view COMPARISON: 06/04/2021 FINDINGS: Mediastinum: The mediastinum is normal in appearance. The heart silhouette is normal in size and morphology. The endotracheal tube tip is positioned 2 cm from the kaitlyn. Lung: Small lung volumes are present with mild bibasilar subsegmental atelectasis noted. No pneumothorax is identified. Bone and Soft tissue: Unremarkable for age. Procedure Note Barrie Andersen MD - 10/26/2023 For Patients: As a result of the Cures Act, medical imagingexams and procedure reports are released immediately into your electronicmedical record. You may view this report before your referring provider.If you have questions, please contact your health care provider. INDICATION: ET tube placement TECHNIQUE: Chest radiograph 1 view COMPARISON: 06/04/2021 FINDINGS: Mediastinum: The mediastinum is normal in appearance. The heart silhouetteis normal in size and morphology. The endotracheal tube tip is positioned2 cm from the kaitlyn. Lung: Small lung volumes are present with mild bibasilar subsegmentalatelectasis noted. No pneumothorax is identified. Bone and Soft tissue: Unremarkable for age. IMPRESSION: 1. Small lung volumes are present with mild bibasilar subsegmentalatelectasis noted. Dictated by Barrie Andersen MD @ Reid 23 2024 10:52PM (Electronically Signed) Jorge Luis Allen MD GENERAL IMAGI NG * (ABNORMAL) LACTATE SCREEN VENOUS ISTAT W [place] (10/26/2023 10:32 PM CHILDREN COUNSELOR) Pathologist [facility] LACTATE VENOUS SCREEN ISTAT Critical(A ) <=2.0 10/26/2023 10:36 PM CHILDREN COUNSELOR [facility] LACTATE SCREEN VENOUS POCT 9.5(H) <=2.0 10/26/2023 10:36 PM CHILDREN COUNSELOR [facility] Blood BLOOD SPECIMEN / Unknown 10/26/2023 10:32 PM CHILDREN COUNSELOR 10/26/2023 10:36 PM CHILDREN COUNSELOR Narrative [facility] - 10/26/2023 10:36 PM CHILDREN COUNSELOR Lactate screen results of 2.1-3.9 mmol/L are reported as Intermediate. Lactate screen results of 4.0 mmol/L or greater are reported as Critical. Elevated whole blood lactate screening results >2.0 are automatically referred for confirmatory plasma lactate quantitation. Jorge Luis Allen MD LABORATORY Performing Organization Address City/[facility]/ZIP Co de Phone Number [facility] [address] [address], [place] * EXTRA TUBE [place] ON ICE (10/26/2023 10:32 PM CHILDREN COUNSELOR) Blood BLOOD SPECIMEN / Unknown Butterfly / Unknown 10/26/2023 10:32 PM CHILDREN COUNSELOR 10/26/2023 10:43 PM CHILDREN COUNSELOR Jorge Luis Allen MD LABORATORY [facility] [address] [place] [address], [place] * RED CELL MORPHOLOGY (10/26/2023 10:32 PM CHILDREN COUNSELOR) Pathologist [facility] RBC COMMENT RBC morphology appears normal RBC morphology appears normal, RBC morphology within normal limits for newborns. 10/27/2023 1:17 AM CHILDREN COUNSELOR [facility] Blood BLOOD SPECIMEN / Unknown Butterfly / Unknown 10/26/2023 10:32 PM CHILDREN COUNSELOR 10/26/2023 10:42 PM CHILDREN COUNSELOR Jorge Luis Allen MD HEMATOLOGY [facility] [address] * (ABNORMAL) PLATELET ESTIMATE (10/26/2023 10:32 PM CHILDREN COUNSELOR) PLATELET ESTIMATE Platelets are clumped and appear adequate in number(A) Adequate, No estimate 10/27/2023 1:17 AM CHILDREN COUNSELOR [facility] Blood BLOOD SPECIMEN / Unknown Butterfly / Unknown 10/26/2023 10:32 PM CHILDREN COUNSELOR 10/26/2023 10:42 PM CHILDREN COUNSELOR Jorge Luis Allen MD HEMATOLOGY Performing Organization Address City/[facility] Co de Phone Number [facility] [address] * (ABNORMAL) PROCALCITONIN (10/26/2023 10:32 PM CHILDREN COUNSELOR) PROCALCITONIN 12.90(H) ng/ml 10/27/2023 12:11 AM CHILDREN COUNSELOR [facility] Blood BLOOD SPECIMEN / Unknown Butterfly / Unknown 10/26/2023 10:32 PM CHILDREN COUNSELOR 10/26/2023 10:42 PM CHILDREN COUNSELOR Narrative [facility] - 10/27/2023 12:11 AM CHILDREN COUNSELOR Procalcitonin for initial assessment of Lower Respiratory Tract Infection: Results Interpretation <0.10 ng/mL Antibiotic therapy strongly discoraged. ??Indicates absent of bacterial infection. * 0.10 - 0.25 ng/mL Antibiotic therapy discouraged. ??Bacterial infection unlikely. * 0.26 - 0.50 ng/mL Antibiotic therapy encouraged. ??Bacterial infection possible. >0.50 ng/mL Antibiotic therapy strongly encouraged. ??Suggestive of presence of bacterial infection. *Antibiotic therapy should be considered regardless of PCT result if the patient is clinically unstable, is at high risk for adverse outcome, has strong evidence of bacterial pathogen, or the clinical context indicates antibiotic therapy is warranted. ??If antibiotics are withheld, reassess if symptoms persist/worsen and/or repeat PCT measurement within 6-24 hours. ? In order to assess treatment success and to support a decision to discontinue antibiotic therapy, follow up samples should be tested once every 1-2 days, based upon physician discretion taking into account patient's evolution and progress. Procalcitonin for initial assessment of severe sepsis risk: Results Interpretation <0.5 ng/ml A PCT level below 0.5 ng/ml on the first day of ICU admission is associated with a low risk for progression to severe sepsis and/or septic shock. > 2.0 ng/mL A PCT level above 2.0 ng/mL on the first day of ICU admission is associated with a high risk for progression to severe sepsis and/or septic shock. Note: Concentrations < 0.5 ng/mL do not exclude an infection, on account of localized infections (without systemic signs) which can be associated with such low concentrations, or a systemic infection in its initial stages(< 6 hours). Furthermore, increased procalcitonin can occur without infection. PCT concentrations between 0.5 and 2.0 ng/mL should be interpreted taking into account the patient's history. It is recommended to retest PCT within 6-24 hours if any concentrations < 2 ng/mL are obtained. Jorge Luis Allen MD SEND OUTS Performing Organization Address City/State/[facility] Co de Phone Number [facility] [address] [place] [address], * (ABNORMAL) BETA HYDROXYBUTYRATE IN HOUSE (10/26/2023 10:32 PM CHILDREN COUNSELOR) BETA HYDROXYBUTYRATE 0.7(H) <0.6 mmol/L 10/26/2023 10:55 PM CHILDREN COUNSELOR [facility] Blood BLOOD SPECIMEN / Unknown Butterfly / Unknown 10/26/2023 10:32 PM CHILDREN COUNSELOR 10/26/2023 10:42 PM CHILDREN COUNSELOR Jorge Luis Allen MD SEND OUTS [facility] [address] [place] [address], [place] * (ABNORMAL) CALCIUM IONIZED HOSPITAL DRAW ONLY (10/26/2023 10:32 PM CHILDREN COUNSELOR) Pathologist [facility] CALCIUM,IONIZE D 1.05(L) 1.15 - 1.27 mmol/L 10/26/2023 10:50 PM CHILDREN COUNSELOR [facility] Blood BLOOD SPECIMEN / Unknown Butterfly / Unknown 10/26/2023 10:32 PM CHILDREN COUNSELOR 10/26/2023 10:43 PM CHILDREN COUNSELOR Jorge Luis Allen MD CHEMISTRY Performing Organization Address City/[facility]/ZIP Co de Phone Number [facility] [address] [place] [phone], [place] * (ABNORMAL) ISTAT EC8 (10/26/2023 10:31 PM CHILDREN COUNSELOR) Pathologist [facility] GLUCOSE, POCT 649(HH) 70 - 99 mg/dL 10/26/2023 10:34 PM CHILDREN COUNSELOR [facility] BUN, POCT 44(H) 8 - 25 mg/dL 10/26/2023 10:34 PM CHILDREN COUNSELOR [facility] SODIUM, POCT 119(LL) 135 - 145 mmol/L 10/26/2023 10:34 PM CHILDREN COUNSELOR [facility] POTASSIUM, POCT 3.0(L) 3.5 - 5.0 mmol/L 10/26/2023 10:34 PM CHILDREN COUNSELOR [facility] CHLORIDE, POCT 88(L) 98 - 107 mmol/L 10/26/2023 10:34 PM CHILDREN COUNSELOR [facility] CO2,TOTAL, POCT 13(L) 21 - 31 mmol/L 10/26/2023 10:34 PM CHILDREN COUNSELOR [facility] ANION GAP, POCT 22(H) 5 - 18 10/26/2023 10:34 PM [facility] PH, VENOUS, POCT 7.14(LL) 7.32 - 7.42 10/26/2023 10:34 PM CHILDREN COUNSELOR [facility] PCO2, VENOUS, POCT 35(L) 41 - 51 mmHg 10/26/2023 10:34 PM CHILDREN COUNSELOR [facility] HCO3, VENOUS, POCT 12(LL) 22 - 30 mmol/L 10/26/2023 10:34 PM CHILDREN COUNSELOR [facility] BASE EXCESS, VENOUS, POCT -17.0(L) -2.0 - 3.0 10/26/2023 10:34 PM CHILDREN COUNSELOR [facility] HEMATOCRIT, POCT 31.0(L) 37.0 - 53.0 % 10/26/2023 10:34 PM [facility] HEMOGLOBIN, POCT 10.5(L) 13.5 - 17.5 g/dL 10/26/2023 10:34 PM [facility] Blood BLOOD SPECIMEN / Unknown 10/26/2023 10:31 PM CHILDREN COUNSELOR 10/26/2023 10:34 PM [facility] Jorge Luis Allen MD CHEMISTRY [facility] [address] [place] [address], * (ABNORMAL) CREATININE,ISTAT (10/26/2023 10:31 PM CHILDREN COUNSELOR) CREATININE, POCT 3.30(H) 0.57 - 1.11 mg/dL 10/26/2023 10:35 PM [facility] Comment:Caution: Patients ta glenys Hydroxyurea have falsely increased iStat Creatinine results. Verify creatinine results ordering a Creatinine (87790.2) eGFR 25(L) >90 mL/min/1.7 3m2 10/26/2023 10:35 PM [facility] Comment:As of 2021, eG FR is calculated by the CKD-EPI creatinine equation without race adjustment. eGFR can be influenced by muscle mass, exercise, and diet. The reported eGFR is an estimation only and is only applicable if the renal function is stable. Blood BLOOD SPECIMEN / Unknown 10/26/2023 10:31 PM CHILDREN COUNSELOR 10/26/2023 10:35 PM CHILDREN COUNSELOR Jorge Luis Allen MD CHEMISTRY Performing Organization Address City/[facility] Co de Phone Number [facility] [address] [place] [address], * EKG 12 LEAD (10/26/2023 10:09 PM CHILDREN COUNSELOR) Interpretation Normal sinus rhythm Non-specific intra-ventricu lar conduction delay Nonspecific ST abnormality Abnormal ECG Compared to ekg of 18-JAN-2021 Now has Non-specific st abnormality QTc interval Increased 17ms ?? BEYOND NOW Ventricular Rate 88 BPM BEYOND NOW Atrial Rate 88 BPM BEYOND NOW P-R Interval 182 ms BEYOND NOW QRS Duration 122 ms BEYOND NOW QT 430 ms BEYOND NOW QTc 520 ms BEYOND NOW P [place] 70 degrees BEYOND NOW R [place] 89 degrees BEYOND NOW T [place] 78 degrees BEYOND NOW 10/26/2023 10:0 9 PM CHILDREN COUNSELOR 10/26/2023 11:18 PM CHILDREN COUNSELOR Jorge Luis Allen MD EKG ORD Performing Organization Address [facility] de Phone Number BEYOND NOW [place], [place] from Last 3 Months Advance Directives Latest Code Status on File Code Status Date Activated Date Inactivated Comments Full Code 10/28/2023 8:05 AM 10/31/2023 3:53 PM Question Answer Comments Code Status Discussion: Reviewed Preferences Code Status History Code Status Date Activated Date Inactivated Comments Full Code 12/20/2022 7:26 AM 12/22/2022 6:45 PM Question Answer Comments Code Status Discussion: Reviewed Preferences Full Code 06/05/2021 12:59 AM 06/05/2021 2:30 PM Question Answer Comments Code Status Discussion: Per Existing Order Full Code 04/28/2021 3:00 PM 04/30/2021 5:17 PM Question Answer Comments Code Status Discussion: Not Discussed Per Existing Order Full Code 01/18/2021 4:04 PM 01/19/2021 3:09 PM Question Answer Comments Code Status Discussion: Discussed Care Teams Restaurant Hospitality Manager Relationship Specialty Start Date End Date Joao Mary PA [address] [place] [address] PCP - General Physician Receiver Setter 12/19/22
--- OUTSIDE RECORDS SUMMARY | 2023-11-03 13:37 | XMS_ITS | Encounter Summary ---
Author Name Unknown Organization [facility] Address [address] [place] [address] Care Team Providers Care Raker Buffing Wheel Name Role Phone Madan Cano Primary Care Provider Unavailable Clinic, [facility] Pr ovider Reason for Visit * Reason Onset Date Comments MH/CD Inpatient 01/06/2019 Encounter Details Date Type Department Care Team ([facility] st Contact Info) Description 01/06/2019 Telephone [facility] Behavior[facility] Health Intake [address] [place] [address] Generic, Behavioral Intake, MH/CD Inpatient Social History Tobacco Use Types Packs/Day Years Used Date Smoking Tobacco: Former Cigarettes 0.3 Smokeless Tobacco: Never Alcohol Use Standard Drinks/Week Comments Yes 0 (1 standard drink = 0.6 oz pur e alcohol) every couple days 8 beers Sex and Gender Information Value Date Recorded Sex Assigned at Not on file Gender Identity Not on file Sexual Orientation Not on file documented as of this encounter Miscellaneous Notes * Telephone Encounter - Keyana Jackson - 01/06/2019 9:39 AM CDT S: Pt seen in the [facility] ED due to not feeling well. B: Info per MARTIN Simon cripple cutter : Pt presented to the ED due to not feeling well. He then reported he was very depressed following the breakup with a G.F. 2 weeks ago. Pt has a long hx of mental health and CD issues. He states he is very sad has passive SI but is perseverating about the GF , and sees no reason to live without her. He reports 3 interrupted suicide attempts in the past. Pt has a hx of chemical abuse and recently has been drinking about 1/2 Ltr of hard liquor daily. In the interview he is crying, reports feeling helpless and hopeless. No known hx of aggression. Pt is diabetic. Please see chart for further info' A: Needing hospitalization for safety and stabilization. R: Pt will be placed on a hold. No appropriate beds avlb at [facility]. [facility] is reviewing. 1300 [facility] believes they will have a bed. Awaiting confirmation. [facility] ED informed. 1500 Per Lyndsey at [facility], they are still awaiting confirmation of bed and MD acceptance. [facility] ED informed. documented in this encounter Plan of Treatment Not on file documented as of this encounter Visit Diagnoses Not on filedocumented in this encounter Care Teams Raker Buffing Wheel Relationship Specialty Start Date End Date Madan Cano PCP - General Family Practice 10/23/[address] [place] [address], [facility] [address] [place] [address] PCP - General 03/02/23 documented as of this encounter
--- OUTSIDE RECORDS SUMMARY | 2023-11-03 13:37 | XMS_ITS | Clinical Summary ---
Author Name Unknown Organization [facility] Address [address] [address] Phone Care Team Providers Care Crystal Calibrator Name Role Phone Elsewhere, Pcp Primary Care Provider Unavailabl e Allergies Active Allergy Reactions Criticality Noted Date Comments Bee Venom 12/20/2015 Penicillin G RASH 12/20/2015 Medications Medication Sig Dispensed Refills Start Date End Date Status insulin aspart (NOVOLOG) 100 UNIT/ML pen injection Give 1 unit per 15 Gm of Carbs and 1 unit for every 50 points over 150 per sliding scale. 9 mL 0 12/23/2015 Active insulin glargine (LANTUS) 100 UNIT/ML pen injection Inject 28 Units under the skin every morning. 6 mL 0 12/23/2015 Active omeprazole (PRILOSEC) 20 MG delayed-release capsule Take 1 Cap by mouth every evening. Take before meals. Do not crush. 30 Cap 0 12/23/2015 Active gabapentin (NEURONTIN) 300 MG capsule Take 1 Cap by mouth three times a day. 90 Cap 0 12/23/2015 Active glucose 4 GM chewable tablet Chew and swallow 1 Tab as needed for Low blood sugar. Chew and swallow. 90 Tab 0 12/23/2015 Active Insulin Pen Needle (BD PEN NEEDLE ISHAAN U/F) 32G X 4 MM Misc use for testing three times daily 100 Each 4 12/23/2015 Active ONETOUCH VERIOIndications:Type 1 diabetes mellitus with ketoacidosis and without coma (HCC) Test blood sugar before meals and at bedtime. 150 Strip 1 12/23/2015 Active ONE TOUCH DELICA LANCETS 33GIndications:Type 1 diabetes mellitus with ketoacidosis and without coma (HCC) Change lancet 4 times per day 100 Each 1 12/23/2015 Active Active Problems Problem Noted Date Diagnosed Date Diabetic neuropathy, type I diabetes mellitus Diabetic retinopathy associa unruly with type 1 diabetes mellitus 12/22/2015 Uncontrolled type I diabetes mellitus 12/22/2015 Diabetic ketoacidosis withou t coma associated with type 1 diabetes mellitus 12/20/2015 STEVE (acute kidney injury) 12/20/2015 Metabolic acidosis, increased anion gap 12/20/19 16 Acute hyperkalemia 12/20/2015 Chest pain on breathing 12/20/2015 Leukemoid reaction 12/20/2015 Intractable vomiting with nausea 12/20/2015 Resolved Problems Problem Noted Date Diagnosed Date Resolved Date Type 1 diabetes mellitus with ketoacidosis 12/20/2015 12/22/2015 Social History Tobacco Use Types Packs/Day Years Used Date Smoking Tobacco: Every Day Cigarettes 0.3 5 Smokeless Tobacco: Never Tobacco Cessation:Ready to Q uit: No; Counseling Given: No Alcohol Use Standard Drinks/Week Comments Yes 0 (1 standard drink = 0.6 oz pur e alcohol) occasionally Sex and Gender Information Value Date Recorded Sex Assigned at Not on file Gender Identity Not on file Sexual Orientation Not on file Obstetrics History Last Filed Vital Signs Vital Sign Reading Time Taken Comments Blood Pressure 118/82 12/23/2015 12:10 PM CDT Pulse 107 12/23/2015 12:10 PM CDT Temperature 36.5 ??C (97.7 ??F) 12/23/2015 12:10 PM C DT Respiratory Rate 16 12/23/2015 12:10 PM CDT Oxygen Saturation 97% 12/23/2015 12:10 PM CDT Inhaled Oxygen Concentration - - Weight 62.3 kg (137 lb 6.4 oz) 12/23/2015 4:33 A M CDT Height 180.3 cm (5' 11) 12/20/2015 5:41 PM CDT Body Mass Index 19.16 12/20/2015 5:41 PM CDT Plan of Treatment Health Maintenance Due Date Last Done Comments Hepatitis B Vaccine (Standing Order) (1 of 3 - 3-dose series) 1993 COVID-19 Vaccine (#1) 1993 DIABETES LIPID PROFILE Q5 YEARS (Standing Order) 2011 DIABETIC EYE EXAM 2011 PERTUSSIS (Standing Order) 02/08/2012 TETANUS (Standing Order) 02/08/2012 DIABETES HGB A1C Q6 MONTHS (Standing Order) 05/18/2023 11/18/2022, 06/23/2021, 06/23/2021, Additional history exists Influenza Vaccine Seasonal (Standing Order) (#1) 2023 DIABETES MICROALBUMIN Q1 YEAR (Standing Order) 10/19/2023 11/18/2022, 11/04/2020, 09/09/2018, Additional history exists DIABETES SERUM CREATININE Q1 YEAR (Standing Order) 12/22/2023 12/21/2022, 12/20/2022, 11/18/2022, Additional history exists HPV Vaccine (Standing Order) Aged Out No longer eligible based on patient's age to complete this topic Pneumococcal/PCV20 Vaccine: Pediatrics (2-5 yrs) and At-Risk Patients (6-64 yrs) (Standing Order) Aged Out No longer eligible based on patient's age to complete this topic Advance Directives For more information, please contact: [phone] Latest Code Status on File Code Status Date Activated Date Inactivated Comments Full Code 12/20/2015 4:17 PM 12/23/2015 7:49 PM Care Teams Crystal Calibrator Relationship Specialty Start Date End Date Elsewhere, Pcp PCP - General 12/22/22
== END 2023-10-26 21:12 | disposition home or self-care (01) ==
LOC: AMB 11-03 13:25
PROVIDERS: Visit Provider Emergency Medicine Emergency Medical Services
DX: E11.65 Type 2 diabetes mellitus with hyperglycemia (principal); R41.82 Altered mental status, unspecified; R53.1 Weakness
CPT/HCPCS: A0425; A0433

== ENCOUNTER 2023-12-21 20:25 | Outpatient (CLI) | payer MEDICAID, SELFPAY | END 2023-12-21 20:26 | disposition home or self-care (01) | LOC: AMB 12-22 13:47 | PROVIDERS: Visit Provider Family Medicine | DX: R41.82 Altered mental status, unspecified (principal) | CPT/HCPCS: A0425; A0427 ==

== ENCOUNTER 2024-05-01 21:00 | Outpatient (CLI) | payer MEDICAID, SELFPAY | END 2024-05-01 21:01 | disposition home or self-care (01) | LOC: AMB 05-12 02:36 | PROVIDERS: Visit Provider Family Medicine | DX: I46.9 Cardiac arrest, cause unspecified (principal) ==